=== PATIENT | female | born 1980 | race African-American/Black ===

== ENCOUNTER 2017-12-07 19:41 | Inpatient (IN) | payer OTHER ==
--- NOTE | 2017-12-07 19:51 | PDOC ---
Rapid Medical Evaluation Medical Evaluation: Allergies Allergy/AdvReac Type Severity Reaction Status Date / Time No Known Allergies Allergy Verified 07/31/13 18:38 12/07/17 19:47 I have performed a brief in-person evaluation of this patient. The patient presents with a chief complaint of: "sores all over body, for one month. " pt admits to using intranasal cocaine, denies IVDA. Pt has history of psychiatric illness, REFUSED HIV testing today. Pertinent physical exam findings:scalp, nares, hands, back with multiple lesions , wheeping, scabbed I have ordered the following:cbcd, blood cultures, cmet, wound culture The patient will proceed to the ED for further evaluation. 12/07/17 19:50
[2017-12-07 20:20] LABS: BASO % 0.8 % (0-2.0); EOS % 14.9 % (0-4.5); HEMATOCRIT 40.2 % (32.4-45.2); HEMOGLOBIN 12.9 GM/dL (10.7-15.3); LYMPH % 13.4 % (8-40); MCH 23.6 pg (25.7-33.7); MCHC 32.1 g/dl (32.0-36.0); MEAN CELL VOLUME 73.8 fl (80-96); MEAN PLT VOLUME 7.9 fl (7.5-11.1); MONO % 7.9 % (3.8-10.2); PLATELET COUNT 501 K/MM3 (134-434); RBC 5.45 M/mm3 (3.60-5.2); RDW 14.3 % (11.6-15.6); WHITE BLOOD COUNT 9.3 K/mm3 (4.0-10.0)
[2017-12-07 20:42] LABS: ALBUMIN 3.1 g/dl (3.4-5.0); ALK PHOS 93 U/L (45-117); ANION GAP 6 MMOL/L (8-16); BILIRUBIN,TOTAL 0.4 mg/dL (0.2-1); BLOOD UREA NITROGEN 9 mg/dL (7-18); CALCIUM 8.7 mg/dL (8.5-10.1); CHLORIDE 106 mmol/L (98-107); CO2 24 mmol/L (21-32); CREATININE 0.9 mg/dL (0.55-1.3); GLUCOSE,RANDOM 112 mg/dL (74-106); POTASSIUM 3.9 mmol/L (3.5-5.1); SGOT/AST 20 U/L (15-37); SGPT/ALT 21 U/L (13-61); SODIUM 135 mmol/L (136-145); TOT PROT 7.9 g/dl (6.4-8.2)
[2017-12-08] MEDS ORDERED: PIPERACILLIN/TAZOBACTAM 4.5 GM VIAL IVPB ONE (01:06)
--- NOTE | 2017-12-08 01:06 | PDOC ---
History of Present Illness - General Chief Complaint: Wound Stated Complaint: PCP SENT/WOUND Time Seen by Provider: 12/08/17 00:48 History Source: Patient - History of Present Illness Initial Comments: 12/08/17 01:27 37 year old female with multiple open crater like lesions to scalp, body, back, legs and groin after using cocaine intranasally from a new dealer. denies fever / chills reports that wound start like a blister and spreads. patient has large wound weeping on scalp and back,. Past History - Past Medical History Allergies/Adverse Reactions: Allergies Allergy/AdvReac Type Severity Reaction Status Date / Time No Known Allergies Allergy Verified 12/07/17 19:49 Home Medications: Ambulatory Orders Acamprosate Calcium [Campral -] 666 mg PO TID #120 tablet. 08/27/13 Sertraline HCl [Zoloft -] 150 mg PO DAILY #30 tablet 08/27/13 Quetiapine Fumarate [Seroquel -] 200 mg PO HS 12/12/17 Anemia: No Asthma: No Cancer: No Cardiac Disorders: No CVA: No COPD: No CHF: No Dementia: No Diabetes: No GI Disorders: No Disorders: No HTN: No Hypercholesterolemia: No Kidney Stones: No Liver Disease: No Seizures: No Thyroid Disease: No - Reproductive History PID: No - Suicide/Smoking/Psychosocial Hx Smoking History: Never smoked Have you smoked in the past 12 months: Yes Number of Cigarettes Smoked Daily: 20 Cigars Per Day: 0 'Breaking Loose' booklet given: 07/31/13 Hx Alcohol Use: Yes (reports drinking since 16 years old) Drug/Substance Use Hx: Yes (cocaine) Substance Use Type: Alcohol, Cocaine Hx Substance Use Treatment: Yes (completed 10 months inpatient rehab ,relapsed last month) Review of Systems - Review of Systems Able to Perform ROS?: Yes Is the patient limited Macedonian proficient: No Integumentary: Yes: Lesions (multiple skin lesions), Other *Physical Exam - Vital Signs Last Vital Signs Temp Pulse Resp BP Pulse Ox 98.3 F 100 H 18 129/67 100 12/07/17 19:45 12/07/17 19:45 12/07/17 19:45 12/07/17 19:45 12/07/17 19:45 - Physical Exam General Appearance: Yes: Appropriately Dressed Gastrointestinal/Abdominal: positive: Normal Bowel Sounds, Soft Extremity: positive: Inflammation Integumentary: positive: Other (several lesions to back groin, legs arms. ) Neurologic: positive: Fully Oriented, Alert, Normal Mood/Affect ED Treatment Course - LABORATORY CBC & Chemistry Diagram: 12/16/17 06:23 12/16/17 06:23 - ADDITIONAL ORDERS Additional order review: Laboratory Results 12/07/17 20:05 Sodium 135 L Potassium 3.9 Chloride 106 Carbon Dioxide 24 Anion Gap 6 L BUN 9 Creatinine 0.9 Creat Clearance w eGFR > 60 Random Glucose 112 H Calcium 8.7 Total Bilirubin 0.4 AST 20 ALT 21 Alkaline Phosphatase 93 Total Protein 7.9 Albumin 3.1 L 12/07/17 20:05 RBC 5.45 H MCV 73.8 L MCHC 32.1 RDW 14.3 MPV 7.9 D Neutrophils % 63.0 Lymphocytes % 13.4 D Monocytes % 7.9 Eosinophils % 14.9 H D Basophils % 0.8 Progress Note - Progress Note Progress Note: A: skin lesions P: cbc blood culture cmp IV antibiotics. wound culture *DC/Admit/Observation/Transfer Diagnosis at time of Disposition: Skin lesion, infected, Wound infection - Discharge Dispostion Decision to Admit order: Yes - Referrals - Patient Instructions - Post Discharge Activity
[2017-12-08] MEDS ORDERED: SODIUM CHLORIDE 1,000 ML IV STA (01:07)
[2017-12-08] MEDS ORDERED: VANCOMYCIN 1 GRAM (PRE-DOCKED) 1,000 MG/250 ML BAG IVPB ONE ×2 (01:07→01:25)
[2017-12-08] MEDS ORDERED: PIPERACILLIN/TAZOB 4.5 GM 4.5 GM/100 ML BAG IVPB ONE (01:25)
[2017-12-08] MEDS ORDERED: KETOROLAC TROMETHAMINE 30 MG/1 ML VIAL IVPUSH ONE (01:39)
[2017-12-08 01:42] LABS: PLATELET ESTIMATE INCREASED
[2017-12-08 02:23] LABS: INR 1.26 (0.83-1.09); PROTHROMBIN TIME (PATIENT) 14.9 SEC (9.7-13.0)
[2017-12-08 02:26] LABS: ACTIVATED PTT 29.7 SECONDS (25.2-36.5)
[2017-12-08] MEDS ORDERED: KETOROLAC TROMETHAMINE 30 MG/1 ML VIAL ONE (02:32)
--- NOTE | 2017-12-08 04:21 | HP ---
CHIEF COMPLAINT: multiple bleeding lesions PCP: none HISTORY OF PRESENT ILLNESS: 37F w/ pmhx of cocaine abuse and bipolar depression presents today with complaints of multiple blistering bloody lesions throughout her scalp, chest, breasts, arms, back, and groin. She reports that about 1 month ago, she started buying cocaine from a new drug dealer that she believes "put something in her cocaine." About 1 month ago, she noticed a dime-sized lesion on her scalp that had gradually grown to 10cm. She admits to constantly scratching her scalp due to itchiness. 3 days ago, she started developing multiple blistering coin-sized skin lesions throughout her back, chest, breasts, arms, and groin region. She reports the lesions were very itchy and continued to scratch all over causing her lesions to bleed. Pt denies seeing a doctor for her symptoms as it did not bother her until the lesions started appearing all over her body. Denies headache/dizziness, fever/chills, nausea/vomiting, chest pain, sob, abdominal pain, peripheral edema. Of note, pt used to follow up with a psychiatrist for her bipolar depression as well as a pcp 1 year ago. She states that she had previously been to rehab at [facility] in the past, but started using cocaine again throughout the past year. She states that she exclusively uses cocaine nasally and never intravenously. ER course was notable for: (1) Zosyn, NS, Benadryl given (2) CBC, CMP, blood/wound cultures ordered (3) Recent Travel: Denies PAST MEDICAL HISTORY: cocaine abuse (denies IV use) bipolar depression PAST SURGICAL HISTORY: Denies Social History: Smoking: admits Alcohol: admits Drugs: snorts cocaine for many years Family History: Denies Allergies No Known Allergies Allergy (Verified 12/07/17 19:49) HOME MEDICATIONS: Home Medications Medication Instructions Recorded Sertraline HCl [Zoloft -] 50 mg PO DAILY 07/31/13 Acamprosate Calcium [Campral -] 666 mg PO TID #120 tablet. 08/27/13 Quetiapine Fumarate [Seroquel -] 100 mg PO HS #30 08/27/13 Sertraline HCl [Zoloft -] 150 mg PO DAILY #30 tablet 08/27/13 REVIEW OF SYSTEMS CONSTITUTIONAL: Absent: fever, chills, diaphoresis, generalized weakness, malaise, loss of appetite, weight change HEENT: scalp ulceration Absent: rhinorrhea, nasal congestion, throat pain, throat swelling, difficulty swallowing, mouth swelling, ear pain, eye pain, visual changes CARDIOVASCULAR: Absent: chest pain, syncope, palpitations, irregular heart rate, lightheadedness , peripheral edema RESPIRATORY: Absent: cough, shortness of breath, dyspnea with exertion, orthopnea, wheezing, stridor, hemoptysis GASTROINTESTINAL: Absent: abdominal pain, abdominal distension, nausea, vomiting, diarrhea, constipation, melena, hematochezia GENITOURINARY: Absent: dysuria, frequency, urgency, hesitancy, hematuria, flank pain, genital pain MUSCULOSKELETAL: Absent: myalgia, arthralgia, joint swelling, back pain, neck pain SKIN: multiple bloody ulcerations on back, b/l arms, chest, pubic region a/w itchiness HEMATOLOGIC/IMMUNOLOGIC: Absent: easy bleeding, easy bruising, lymphadenopathy, frequent infections ENDOCRINE: Absent: unexplained weight gain, unexplained weight loss, heat intolerance, cold intolerance NEUROLOGIC: Absent: headache, focal weakness or paresthesias, dizziness, unsteady gait, seizure, mental status changes, bladder or bowel incontinence PSYCHIATRIC: depressio Absent: anxiety, suicidal or homicidal ideation, hallucinations. PHYSICAL EXAMINATION Vital Signs - 24 hr 12/07/17 19:45 Temperature 98.3 F Pulse Rate 100 H Respiratory 18 Rate Blood Pressure 129/67 O2 Sat by Pulse 100 Oximetry (%) GENERAL: AAOx3. Mild distress. Cooperative. HEAD: 10cm in diameter bloody ulceration on scalp with granulation tissue EYES: EOMI. TRE. No conjunctival pallor. EARS, NOSE, THROAT: Deformity of b/l nares w/ bloody drainage and granulation tissue. Poor oral hygiene. erythematous oral pharynx w/ engorged blood vessels. NECK: Normal range of motion, supple without lymphadenopathy, JVD, or masses. LUNGS: Breath sounds equal, clear to auscultation bilaterally. No wheezes, and no crackles. No accessory muscle use. HEART: Regular rate and rhythm, normal S1 and S2. No murmurs noted. ABDOMEN: Soft, NT/ND. +BS in all 4 Q's. MUSCULOSKELETAL: Normal range of motion at all joints. No CVA tenderness. Multiple weeping ulcers. No peripheral edema noted. UPPER EXTREMITIES: 2+ pulses, warm, well-perfused. No cyanosis. No clubbing. No peripheral edema. 5/5 muscle strength LOWER EXTREMITIES: 2+ pulses, warm, well-perfused. No calf tenderness. No peripheral edema. NEUROLOGICAL: Facial symmetry noted. Normal speech. B/l sensation intact. PSYCHIATRIC: Cooperative. Good eye contact. Appropriate mood and affect. SKIN: Multiple diffuse coin-sized desquamative lesions w/ sanguinous discharge on back, chest, breast and b/l arms. Laboratory Results - last 24 hr 12/07/17 12/07/17 12/08/17 20:05 20:05 01:27 WBC 9.3 RBC 5.45 H Hgb 12.9 Hct 40.2 MCV 73.8 L MCH 23.6 L MCHC 32.1 RDW 14.3 Plt Count 501 H D MPV 7.9 D Absolute Neuts (auto) 5.9 Total Counted 100 Neutrophils % 63.0 Neutrophils % (Manual) 56.0 Band Neutrophils % 4.0 Lymphocytes % 13.4 D Lymphocytes % (Manual) 17.0 Monocytes % 7.9 Monocytes % (Manual) 4 Eosinophils % 14.9 H D Eosinophils % (Manual) 19.0 H Basophils % 0.8 Nucleated RBC % 0 Platelet Estimate Increased Platelet Comment No clumping noted PT with INR INR PTT (Actin FS) Sodium 135 L Potassium 3.9 Chloride 106 Carbon Dioxide 24 Anion Gap 6 L BUN 9 Creatinine 0.9 Creat Clearance w eGFR > 60 Random Glucose 112 H Calcium 8.7 Total Bilirubin 0.4 AST 20 ALT 21 Alkaline Phosphatase 93 Total Protein 7.9 Albumin 3.1 L Serum , Qual Negative 12/08/17 02:00 WBC RBC Hgb Hct MCV MCH MCHC RDW Plt Count MPV Absolute Neuts (auto) Total Counted Neutrophils % Neutrophils % (Manual) Band Neutrophils % Lymphocytes % Lymphocytes % (Manual) Monocytes % Monocytes % (Manual) Eosinophils % Eosinophils % (Manual) Basophils % Nucleated RBC % Platelet Estimate Platelet Comment PT with INR 14.90 H INR 1.26 H PTT (Actin FS) 29.7 Sodium Potassium Chloride Carbon Dioxide Anion Gap BUN Creatinine Creat Clearance w eGFR Random Glucose Calcium Total Bilirubin AST ALT Alkaline Phosphatase Total Protein Albumin Serum , Qual ASSESSMENT/PLAN: 37F w/ pmhx of cocaine abuse and bipolar depression presents today with complaints of multiple blistering bloody lesions throughout her scalp, chest, breasts, arms, back, and groin admitted for skin infection. #Staph infection vs necrotizing fasciitis vs. autoimmune dz -Vanc/Zosyn for empiric coverage -isolation precautions -ID consult -TRAUMA SURGEON consult to assess ulcers in mon pubis -ENT consult -If infection ruled out, consider rheum evaluation to r/o autoimmune process causing skin ulcerations. -wound care, apply bacitracin daily -blood/wound cultures ordered, await c/s -Poison control contacted and d/w tox , Dr. Dubon regarding case. Levamisole suggested, but not confirmed by poison control; substance known to lace cocaine and cause skin lesions. -Tylenol 650 mg PO Q6H for pain #Hx of cocaine abuse -drug counseling/cessation -Pt has received rehab in the past; referral for detox #Hx of tobacco use -nicotine patch -drug counseling/cession #DVT Ppx -Lovenox 40 mg SQ QD #FEN -NS -recheck lytes in AM -regular diet dispo -admit to med-surg Visit type - Emergency Visit Emergency Visit: Yes ED Registration Date: 12/08/17 Care time: The patient presented to the Emergency Department on the above date and was hospitalized for further evaluation of their emergent condition. - New Patient This patient is new to me today: Yes Date on this admission: 12/28/17 - Critical Care Critical Care patient: No
[2017-12-08] MEDS ORDERED: ACETAMINOPHEN 325 MG TABLET (FP) PO PRN (05:14)
[2017-12-08] MEDS ORDERED: SODIUM CHLORIDE 1,000 ML IV SCH (05:15)
[2017-12-08] MEDS ORDERED: VANCOMYCIN 1,000 MG in DEXTROSE 5%-WATER - 250 ML IVPB SCH (05:15)
[2017-12-08 06:24] VITALS: BMI 24.3
[2017-12-08] MEDS: SODIUM CHLORIDE 1,000 ML IV SCH ×2 (07:15→16:06)
--- NOTE | 2017-12-08 08:04 | PN ---
Teaching Attending Note Name of Resident: eKnnedi Fung ATTENDING PHYSICIAN STATEMENT I saw and evaluated the patient. I reviewed the resident's note and discussed the case with the resident. I agree with the resident's findings and plan as documented. SUBJECTIVE: OBJECTIVE: HEENT: 8 cm diameter scalp ulceration with granulation, nose with ulceration and deformity of nares with purulent/sanguinous discharge, oral pharynge hyperemic with engorged blood vessels. poor oral hygiene. CVS: RRR, S1, S2 Lungs: CTA Back: multiple ulcerations with purulent discharge : ulcerations on mons pubis Ext: no edema, multiple ulcers CBCD WBC 9.3 K/mm3 (4.0-10.0) 12/07/17 20:05 RBC 5.45 M/mm3 (3.60-5.2) H 12/07/17 20:05 Hgb 12.9 GM/dL (10.7-15.3) 12/07/17 20:05 Hct 40.2 % (32.4-45.2) 12/07/17 20:05 MCV 73.8 fl (80-96) L 12/07/17 20:05 MCHC 32.1 g/dl (32.0-36.0) 12/07/17 20:05 RDW 14.3 % (11.6-15.6) 12/07/17 20:05 Plt Count 501 K/MM3 (134-434) H D 12/07/17 20:05 MPV 7.9 fl (7.5-11.1) D 12/07/17 20:05 CMP Sodium 135 mmol/L (136-145) L 12/07/17 20:05 Potassium 3.9 mmol/L (3.5-5.1) 12/07/17 20:05 Chloride 106 mmol/L (98-107) 12/07/17 20:05 Carbon Dioxide 24 mmol/L (21-32) 12/07/17 20:05 Anion Gap 6 MMOL/L (8-16) L 12/07/17 20:05 BUN 9 mg/dL (7-18) 12/07/17 20:05 Creatinine 0.9 mg/dL (0.55-1.3) 12/07/17 20:05 Creat Clearance w eGFR > 60 (>60) 12/07/17 20:05 Random Glucose 112 mg/dL (74-106) H 12/07/17 20:05 Calcium 8.7 mg/dL (8.5-10.1) 12/07/17 20:05 Total Bilirubin 0.4 mg/dL (0.2-1) 12/07/17 20:05 AST 20 U/L (15-37) 12/07/17 20:05 ALT 21 U/L (13-61) 12/07/17 20:05 Alkaline Phosphatase 93 U/L (45-117) 12/07/17 20:05 Total Protein 7.9 g/dl (6.4-8.2) 12/07/17 20:05 Albumin 3.1 g/dl (3.4-5.0) L 12/07/17 20:05 ASSESSMENT AND PLAN: Staph infection/ Necrotizing fascitis/ Isolation ID consult IVF Vancomycin and zosyn Follow wound and blood cultures. INDUSTRIAL HEALTH AND SAFETY PROFESSOR consult and ENT consult Detox referral
[2017-12-08] MEDS: ACETAMINOPHEN 325 MG TABLET (FP) PO PRN ×2 (09:04→17:19)
[2017-12-08 10:07] LABS: BASO % 0.9 % (0-2.0); EOS % 18.4 % (0-4.5); HEMATOCRIT 36.9 % (32.4-45.2); HEMOGLOBIN 11.4 GM/dL (10.7-15.3); LYMPH % 19.4 % (8-40); MCHC 30.9 g/dl (32.0-36.0); MEAN CELL VOLUME 74.3 fl (80-96); MEAN PLT VOLUME 7.7 fl (7.5-11.1); MONO % 11.3 % (3.8-10.2); PLATELET COUNT 425 K/MM3 (134-434); RBC 4.97 M/mm3 (3.60-5.2); RDW 14.4 % (11.6-15.6); WHITE BLOOD COUNT 7.1 K/mm3 (4.0-10.0)
[2017-12-08 10:35] LABS: ALBUMIN 2.6 g/dl (3.4-5.0); ALK PHOS 76 U/L (45-117); ANION GAP 3 MMOL/L (8-16); BILIRUBIN,TOTAL 0.4 mg/dL (0.2-1); BLOOD UREA NITROGEN 9 mg/dL (7-18); CALCIUM 8.8 mg/dL (8.5-10.1); CHLORIDE 107 mmol/L (98-107); CO2 27 mmol/L (21-32); CREATININE 0.9 mg/dL (0.55-1.3); GLUCOSE,RANDOM 93 mg/dL (74-106); SGOT/AST 15 U/L (15-37); SGPT/ALT 19 U/L (13-61); SODIUM 137 mmol/L (136-145); TOT PROT 6.5 g/dl (6.4-8.2)
[2017-12-08] MEDS: ENOXAPARIN NA (PORCINE) 40 MG/0.4 ML DISP.SYRIN SQ SCH (11:17)
[2017-12-08] MEDS: BACITRACIN 15 GM TUBE TOPICAL OINTMENT TP SCH (11:17)
[2017-12-08] MEDS ORDERED: NICOTINE 14 MG/24 HOURS TOPICAL PATCH TD SCH (13:31)
[2017-12-08] MEDS: NICOTINE 14 MG/24 HOURS TOPICAL PATCH TD SCH (14:05)
--- NOTE | 2017-12-08 14:54 | PN ---
Physical Exam: SUBJECTIVE: Patient seen and examined. She complains of itching all over her body. OBJECTIVE: Vital Signs Period Temp Pulse Resp BP Sys/Laguerre Pulse Ox Last 24 Hr 97.3 F-98.3 F 57-100 18-20 129-141/67-93 100-100 GENERAL: The patient is awake, alert, and fully oriented, in no acute distress. LUNGS: Breath sounds equal, clear to auscultation bilaterally, no wheezes, no crackles, no accessory muscle use. HEART: Regular rate and rhythm, S1, S2 without murmur, rub or gallop. ABDOMEN: Soft, nontender, nondistended, normoactive bowel sounds, no guarding, no rebound, no hepatosplenomegaly, no masses. EXTREMITIES: 2+ pulses, warm, well-perfused, no edema. SKIN: Laboratory Results - last 24 hr 12/07/17 12/07/17 12/08/17 20:05 20:05 01:27 WBC 9.3 RBC 5.45 H Hgb 12.9 Hct 40.2 MCV 73.8 L MCH 23.6 L MCHC 32.1 RDW 14.3 Plt Count 501 H D MPV 7.9 D Absolute Neuts (auto) 5.9 Total Counted 100 Neutrophils % 63.0 Neutrophils % (Manual) 56.0 Band Neutrophils % 4.0 Lymphocytes % 13.4 D Lymphocytes % (Manual) 17.0 Monocytes % 7.9 Monocytes % (Manual) 4 Eosinophils % 14.9 H D Eosinophils % (Manual) 19.0 H Basophils % 0.8 Nucleated RBC % 0 Platelet Estimate Increased Platelet Comment No clumping noted PT with INR INR PTT (Actin FS) Sodium 135 L Potassium 3.9 Chloride 106 Carbon Dioxide 24 Anion Gap 6 L BUN 9 Creatinine 0.9 Creat Clearance w eGFR > 60 Random Glucose 112 H Calcium 8.7 Total Bilirubin 0.4 AST 20 ALT 21 Alkaline Phosphatase 93 Total Protein 7.9 Albumin 3.1 L Serum , Qual Negative 12/08/17 12/08/17 12/08/17 02:00 09:27 09:27 WBC 7.1 RBC 4.97 Hgb 11.4 Hct 36.9 MCV 74.3 L MCH 23.0 L MCHC 30.9 L RDW 14.4 Plt Count 425 MPV 7.7 Absolute Neuts (auto) 3.5 Total Counted Neutrophils % 50.0 D Neutrophils % (Manual) Band Neutrophils % Lymphocytes % 19.4 D Lymphocytes % (Manual) Monocytes % 11.3 H Monocytes % (Manual) Eosinophils % 18.4 H Eosinophils % (Manual) Basophils % 0.9 Nucleated RBC % 0 Platelet Estimate Platelet Comment PT with INR 14.90 H INR 1.26 H PTT (Actin FS) 29.7 Sodium 137 Potassium 4.0 Chloride 107 Carbon Dioxide 27 Anion Gap 3 L BUN 9 Creatinine 0.9 Creat Clearance w eGFR > 60 Random Glucose 93 Calcium 8.8 Total Bilirubin 0.4 AST 15 ALT 19 Alkaline Phosphatase 76 Total Protein 6.5 Albumin 2.6 L Serum , Qual Active Medications Generic Name Dose Route Start Last Admin Trade Name Freq PRN Reason Stop Dose Admin Acetaminophen 650 mg 12/08/17 05:02 12/08/17 09:04 Tylenol - PO 650 mg Q6H PRN Administration PAIN Bacitracin 1 applic 12/08/17 10:00 12/08/17 11:17 Bacitracin - TP 1 applic DAILY JOHN Administration Enoxaparin Sodium 40 mg 12/08/17 10:00 12/08/17 11:17 Lovenox - SQ 40 mg DAILY JOHN Administration Sodium Chloride 1,000 mls @ 100 mls/hr 12/08/17 05:15 12/08/17 07:15 Normal Saline - IV 100 mls/hr ASDIR JOHN Administration Nicotine 14 mg 12/08/17 13:45 12/08/17 14:05 Nicoderm Patch - TD 14 mg DAILY JOHN Administration ASSESSMENT/PLAN: This is a 37 year old woman with a history of cocaine abuse, bipolar disorder, depression who presented to the ED with complaints of itchy skin lesions. 1. Skin lesions - Continue Zosyn, Vancomycin, topical Bacitracin - Benadryl as needed for itching - Awaiting ID, ENT, buffing wheel presser consults - Wound culture pending 2. Cocaine abuse 3. Nicotine dependence - Nicotine patch 4. Bipolar disorder - Continue Zoloft, Seroquel
--- NOTE | 2017-12-08 15:36 | CON.ID ---
Consult Consult Specialty:: infectious diseases Referred by:: Reason for Consultation:: rash,pain - History of Present Illness Chief Complaint: pain,rash History of Present Illness: 37F w/ pmhx of cocaine abuse and bipolar depression presents today with complaints of multiple blistering bloody lesions throughout her scalp, chest, breasts, arms, back, and groin. She reports that about 1 month ago, she started buying cocaine from a new drug dealer that she believes "put something in her cocaine." About 1 month ago, she noticed a dime-sized lesion on her scalp that had gradually grown She admits to constantly scratching her scalp due to itchiness. 3 days ago, she started developing multiple blistering coin-sized skin lesions throughout her back, chest, breasts, arms, and groin region. She reports the lesions were very itchy and continued to scratch all over causing her lesions to bleed. Pt denies seeing a doctor for her symptoms as it did not bother her until the lesions started appearing all over her body. Denies headache/dizziness, fever/ chills, nausea/vomiting, chest pain, sob, abdominal pain, peripheral edema. Of note, pt used to follow up with a psychiatrist for her bipolar depression as well as a pcp 1 year ago. She states that she had previously been to rehab at [facility] in the past, but started using cocaine again throughout the past year. She states that she exclusively uses cocaine nasally and never intravenously. - History Source History Provided By: Patient, Medical Record Limitations to Obtaining History: Poor Historian - Past Medical History ...LMP: 07/15/13 - Alcohol/Substance Use Hx Alcohol Use: Yes (reports drinking since 16 years old) - Smoking History Smoking history: Current every day smoker Have you smoked in the past 12 months: Yes Aproximately how many cigarettes per day: 20 Home Medications - Allergies Allergies/Adverse Reactions: Allergies Allergy/AdvReac Type Severity Reaction Status Date / Time No Known Allergies Allergy Verified 12/07/17 19:49 - Home Medications Home Medications: Ambulatory Orders Acamprosate Calcium [Campral -] 666 mg PO TID #120 tablet. 08/27/13 Quetiapine Fumarate [Seroquel -] 100 mg PO HS #30 08/27/13 Sertraline HCl [Zoloft -] 150 mg PO DAILY #30 tablet 08/27/13 Review of Systems - Review of Systems Constitutional: reports: No Symptoms Eyes: reports: No Symptoms HENT: reports: No Symptoms Neck: reports: No Symptoms Cardiovascular: reports: No Symptoms Respiratory: reports: No Symptoms Gastrointestinal: reports: No Symptoms Genitourinary: reports: No Symptoms Musculoskeletal: reports: No Symptoms Integumentary: reports: Rash (all over the body) Neurological: reports: No Symptoms Endocrine: reports: No Symptoms Hematology/Lymphatic: reports: No Symptoms Psychiatric: reports: No Symptoms Physical Exam Vital Signs: Vital Signs Temperature 97.3 F L 12/08/17 09:39 Pulse Rate 72 12/08/17 09:39 Respiratory Rate 20 12/08/17 09:39 Blood Pressure 141/93 12/08/17 09:39 O2 Sat by Pulse Oximetry (%) 100 12/08/17 06:27 Constitutional: Yes: Well Nourished, Calm, Mild Distress Eyes: Yes: Conjunctiva Clear HENT: Yes: Atraumatic, Normocephalic Neck: Yes: Supple, Trachea Midline Cardiovascular: Yes: Regular Rate and Rhythm Respiratory: Yes: Regular, CTA Bilaterally Gastrointestinal: Yes: Normal Bowel Sounds, Soft Musculoskeletal: Yes: WNL Extremities: Yes: WNL Integumentary: Yes: Rash (all over the body including her nose) Neurological: Yes: Alert, Oriented Psychiatric: Yes: Alert, Oriented Labs: CBC, BMP 12/08/17 09:27 12/08/17 09:27 Assessment/Plan patient with h/o of cocaine abuse coming to the hospital for fulminant rash all over the body which i think it is infected patient with pain all over the body and also rash below her nostrils mainly snorts cocaine according to her does not do iv drugs drug abuse skin infectin rash tobacco abuse plan will start on vanco and zosyn await for all cx reports monitor for her condition ent consult to look for septal perforation if blood cx positive echo wound care rest as per the team derm consult
[2017-12-08] MEDS ORDERED: PIPERACILLIN/TAZOBACTAM 3.375 GM VIAL IVPB ONE (17:16)
[2017-12-08] MEDS ORDERED: DEXTROSE 5%-WATER - 50 ML IVPB ONE (17:16)
[2017-12-08] MEDS: PIPERACILLIN/TAZOB 3.375 GM 3.375 GM in DEXTROSE 5%-WATER - 50 ML IVPB SCH ×2 (17:19→21:03)
[2017-12-08] MEDS: diphenhydrAMINE HCL 25 MG CAPSULE (FP) PO PRN (17:19)
[2017-12-08] MEDS: VANCOMYCIN 1,250 MG in DEXTROSE 5%-WATER - 250 ML IVPB SCH (18:27)
[2017-12-08] MEDS ORDERED: QUEtiapine FUMARATE 25 MG TABLET (FP) ONE (21:04)
[2017-12-08] MEDS: ACAMPROSATE CALCIUM 333 MG TABLET.DR PO SCH (21:07)
[2017-12-08] MEDS: QUEtiapine FUMARATE 50 MG TABLET PO SCH (21:07)
--- NOTE | 2017-12-09 00:26 | CONS ---
DATE OF CONSULTATION: DATE OF DICTATION: 12/08/2017 REASON FOR CONSULTATION: Multiple blister like lesions on skin area. HISTORY OF PRESENT ILLNESS: This patient is a 37-year-old female, 0, para 0, with irregular period. She was admitted with history of cocaine abuse and bipolar depression who admits to snorting cocaine daily, complained of itchy scalp lesion which appears approximately a month ago, which has been increasing in size, and then recently has developed multiple blistering and bleeding ulcers over her body area, mostly on the chest, breast, arm, and groin area. Denies any fever, chills. States sexually active and last intercourse was about 2 months ago. She does not use condoms. PHYSICAL EXAMINATION: GENERAL: Patient was anxious and crying and did not want to be examined. HEENT: Visualization of the scalp area showed a large approximately 8 cm deep ulceration with induration and bleeding. There was also multiple chest lesions and arm lesions. On the mons pubis, there was another large ulcer, and several smaller ones along the labial area. These ulcers weer all ulcerated and deep and indurated. Because of this discomfort, pelvic exam was deferred at this time. Patient states that she had had normal pap smear and then normal recent pelvic exam in [facility]. IMPRESSION: Multiple skin ulcerations and lesions, possibly related to cocaine use. Rule out syphilis and rule out systemic herpes. Also a systemic lupus. I advised her to obtain a dermatology consult for further evaluation. Culture of the lesions are still pending. We will follow up after all the results are available. DRISS RUGGIERO M.D. [id number]
[2017-12-09] MEDS ORDERED: DEXTROSE 5%-WATER - 50 ML IVPB ONE ×3 (01:49→18:00)
[2017-12-09] MEDS ORDERED: PIPERACILLIN/TAZOBACTAM 3.375 GM VIAL IVPB ONE ×3 (01:49→18:00)
[2017-12-09] MEDS: SODIUM CHLORIDE 1,000 ML IV SCH ×3 (01:51→18:18)
[2017-12-09] MEDS: PIPERACILLIN/TAZOB 3.375 GM 3.375 GM in DEXTROSE 5%-WATER - 50 ML IVPB SCH ×3 (01:51→19:16)
[2017-12-09] MEDS: ACETAMINOPHEN 325 MG TABLET (FP) PO PRN (03:11)
[2017-12-09] MEDS ORDERED: KETOROLAC TROMETHAMINE 30 MG/1 ML VIAL IVPUSH ONE (03:15)
[2017-12-09] MEDS ORDERED: PT OWN MED DRAWER 7, Y5N ONE ×2 (05:53→20:55)
[2017-12-09] MEDS: ACAMPROSATE CALCIUM 333 MG TABLET.DR PO SCH ×3 (05:55→21:00)
[2017-12-09] MEDS: KETOROLAC TROMETHAMINE 30 MG/1 ML VIAL IVPUSH PRN ×3 (08:25→21:00)
[2017-12-09 08:30] LABS: BASO % 0.8 % (0-2.0); EOS % 18.3 % (0-4.5); HEMATOCRIT 35.6 % (32.4-45.2); HEMOGLOBIN 11.1 GM/dL (10.7-15.3); LYMPH % 19.7 % (8-40); MCH 23.1 pg (25.7-33.7); MCHC 31.1 g/dl (32.0-36.0); MEAN CELL VOLUME 74.4 fl (80-96); MEAN PLT VOLUME 7.7 fl (7.5-11.1); MONO % 8.5 % (3.8-10.2); NEUT % 52.7 % (42.8-82.8); PLATELET COUNT 397 K/MM3 (134-434); RBC 4.78 M/mm3 (3.60-5.2); RDW 14.5 % (11.6-15.6)
[2017-12-09 08:48] LABS: ANION GAP 6 MMOL/L (8-16); BLOOD UREA NITROGEN 8 mg/dL (7-18); CALCIUM 8.4 mg/dL (8.5-10.1); CHLORIDE 108 mmol/L (98-107); CO2 27 mmol/L (21-32); CREATININE 0.8 mg/dL (0.55-1.3); GLUCOSE,RANDOM 99 mg/dL (74-106); POTASSIUM 4.2 mmol/L (3.5-5.1); SODIUM 140 mmol/L (136-145)
[2017-12-09] MEDS: NICOTINE 14 MG/24 HOURS TOPICAL PATCH TD SCH ×3 (09:35→19:33)
[2017-12-09] MEDS: ENOXAPARIN NA (PORCINE) 40 MG/0.4 ML DISP.SYRIN SQ SCH (09:35)
[2017-12-09] MEDS: BACITRACIN 15 GM TUBE TOPICAL OINTMENT TP SCH (09:35)
[2017-12-09] MEDS: SERTRALINE HCL 50 MG TABLET (FP) PO SCH (09:43)
[2017-12-09] MEDS ORDERED: NICOTINE 14 MG/24 HOURS TOPICAL PATCH TD SCH (10:00)
--- NOTE | 2017-12-09 10:08 | PN ---
Progress Note, Physician History of Present Illness: stable no new issues cx result noted awaiting wound cx patient still with pain and itching - Current Medication List Current Medications: Active Medications Acamprosate (Campral -) 666 mg PO TID [facility] Last Admin: 12/09/17 05:55 Dose: 666 mg Acetaminophen (Tylenol -) 650 mg PO Q6H PRN PRN Reason: PAIN LEVEL 1-5 Bacitracin (Bacitracin -) 1 applic TP DAILY [facility] Last Admin: 12/09/17 09:35 Dose: 1 applic Diphenhydramine HCl (Benadryl -) 25 mg PO Q6H PRN PRN Reason: FOR ITCHING Last Admin: 12/08/17 17:19 Dose: 25 mg Enoxaparin Sodium (Lovenox -) 40 mg SQ DAILY [facility] Last Admin: 12/09/17 09:35 Dose: 40 mg Sodium Chloride (Normal Saline -) 1,000 mls @ 100 mls/hr IV ASDIR JOHN Last Admin: 12/09/17 05:55 Dose: Not Given Vancomycin HCl 1,250 mg/ (Dextrose) 250 mls @ 250 mls/2 hr IVPB Q24H JOHN; Protocol Last Admin: 12/08/17 18:27 Dose: 250 mls/2 hr Piperacillin Sod/Tazobactam (Sod 3.375 gm/ Dextrose) 50 mls @ 100 mls/hr IVPB Q8H-IV JOHN; Protocol Last Admin: 12/09/17 09:33 Dose: 100 mls/hr Ketorolac Tromethamine (Toradol Injection -) 30 mg IVPUSH Q6H PRN PRN Reason: PAIN LEVEL 6-10 Last Admin: 12/09/17 08:25 Dose: 30 mg Nicotine (Nicoderm Patch -) 14 mg TD DAILY [facility] Last Admin: 12/09/17 09:35 Dose: 14 mg Quetiapine Fumarate (Seroquel -) 100 mg PO HS [facility] Last Admin: 12/08/17 21:07 Dose: 100 mg Sertraline HCl (Zoloft -) 150 mg PO DAILY [facility] Last Admin: 12/09/17 09:43 Dose: Not Given - Objective Vital Signs: Vital Signs Temperature 98.4 F 12/09/17 08:55 Pulse Rate 78 12/09/17 08:55 Respiratory Rate 20 12/09/17 08:55 Blood Pressure 120/90 12/09/17 08:55 O2 Sat by Pulse Oximetry (%) 100 12/08/17 21:00 Constitutional: Yes: No Distress, Calm Cardiovascular: Yes: Regular Rate and Rhythm Respiratory: Yes: Regular, CTA Bilaterally Gastrointestinal: Yes: Normal Bowel Sounds, Soft Musculoskeletal: Yes: WNL Extremities: Yes: WNL Integumentary: Yes: Rash (all over the body) Neurological: Yes: Alert, Oriented Psychiatric: Yes: Alert, Oriented Labs: CBC, BMP 12/09/17 07:46 12/09/17 07:46 INR, PTT INR 1.26 (0.83-1.09) H 12/08/17 02:00 Assessment/Plan patient with h/o of cocaine abuse coming to the hospital for fulminant rash all over the body which i think it is infected patient with pain all over the body and also rash below her nostrils mainly snorts cocaine according to her does not do iv drugs drug abuse skin infectin rash tobacco abuse plan ct abx await for wound cx reports monitor for her condition ent consult to look for septal perforation wound care rest as per the team derm consult
[2017-12-09 13:15] LABS: METHADONE, UR NEGATIVE ng/ml (CUTOFF=300); OPIATES, URI NEGATIVE ng/ml (CUTOFF=300); PHENCYCLIDINE,URINE NEGATIVE ng/ml (CUTOFF=25); URINE AMPHETAMINES NEGATIVE ng/ml (CUTOFF=500); URINE BARBITURATES NEGATIVE ng/ml (CUTOFF=200); URINE BENZODIAZEPINES NEGATIVE ng/ml (CUTOFF=200)
[2017-12-09 13:22] LABS: COCAINE, UR POSITIVE ng/ml (CUTOFF=300)
[2017-12-09 13:37] LABS: URINE APPEARANCE CLEAR; URINE BILIRUBIN NEGATIVE (<2.0 mg/dL); URINE COLOR STRAW; URINE GLUCOSE (UA) NEGATIVE (NEGATIVE); URINE KETONE NEGATIVE (NEGATIVE); URINE LEUK ESTERASE NEGATIVE (NEGATIVE); URINE NITRITE NEGATIVE (NEGATIVE); URINE PROTEIN NEGATIVE (NEGATIVE); URINE UROBILINOGEN NEGATIVE mg/dL (0.2-1.0)
--- NOTE | 2017-12-09 16:01 | PN ---
Physical Exam: SUBJECTIVE: Patient seen and examined. She reports itching is better. OBJECTIVE: Vital Signs Period Temp Pulse Resp BP Sys/Laguerre Pulse Ox Last 24 Hr 98 F-98.4 F 66-78 20-20 120-156/86-98 100 GENERAL: The patient is awake, alert, and fully oriented, in no acute distress. LUNGS: Breath sounds equal, clear to auscultation bilaterally, no wheezes, no crackles, no accessory muscle use. HEART: Regular rate and rhythm, S1, S2 without murmur, rub or gallop. ABDOMEN: Soft, nontender, nondistended, normoactive bowel sounds, no guarding, no rebound, no hepatosplenomegaly, no masses. EXTREMITIES: 2+ pulses, warm, well-perfused, no edema. SKIN: Laboratory Results - last 24 hr 12/08/17 12/09/17 12/09/17 10:46 07:46 07:46 WBC 7.0 RBC 4.78 Hgb 11.1 Hct 35.6 MCV 74.4 L MCH 23.1 L MCHC 31.1 L RDW 14.5 Plt Count 397 MPV 7.7 Absolute Neuts (auto) 3.7 Neutrophils % 52.7 Lymphocytes % 19.7 Monocytes % 8.5 Eosinophils % 18.3 H Basophils % 0.8 Nucleated RBC % 0 Sodium 140 Potassium 4.2 Chloride 108 H Carbon Dioxide 27 Anion Gap 6 L BUN 8 Creatinine 0.8 Creat Clearance w eGFR > 60 Random Glucose 99 Calcium 8.4 L Urine Color Straw Urine Appearance Clear Urine pH 6.0 Ur Specific [place] 1.012 Urine Protein Negative Urine Glucose (UA) Negative Urine Ketones Negative Urine Blood Negative Urine Nitrite Negative Urine Bilirubin Negative Urine Urobilinogen Negative Ur Leukocyte Esterase Negative Opiates Screen Methadone Screen Barbiturate Screen Phencyclidine Screen Ur Amphetamines Screen MDMA (Ecstasy) Screen Benzodiazepines Screen Cocaine Screen U Marijuana (THC) Screen RPR Titer 12/09/17 12/09/17 07:46 10:46 WBC RBC Hgb Hct MCV MCH MCHC RDW Plt Count MPV Absolute Neuts (auto) Neutrophils % Lymphocytes % Monocytes % Eosinophils % Basophils % Nucleated RBC % Sodium Potassium Chloride Carbon Dioxide Anion Gap BUN Creatinine Creat Clearance w eGFR Random Glucose Calcium Urine Color Urine Appearance Urine pH Ur Specific [place] Urine Protein Urine Glucose (UA) Urine Ketones Urine Blood Urine Nitrite Urine Bilirubin Urine Urobilinogen Ur Leukocyte Esterase Opiates Screen Negative Methadone Screen Negative Barbiturate Screen Negative Phencyclidine Screen Negative Ur Amphetamines Screen Negative MDMA (Ecstasy) Screen Negative Benzodiazepines Screen Negative Cocaine Screen Positive A* U Marijuana (THC) Screen Negative RPR Titer Nonreactive Active Medications Generic Name Dose Route Start Last Admin Trade Name Freq PRN Reason Stop Dose Admin Acamprosate 666 mg 12/08/17 22:00 12/09/17 15:10 Campral - PO 666 mg TID JOHN Administration Acetaminophen 650 mg 12/09/17 08:13 Tylenol - PO Q6H PRN PAIN LEVEL 1-5 Bacitracin 1 applic 12/08/17 10:00 12/09/17 09:35 Bacitracin - TP 1 applic DAILY JOHN Administration Diphenhydramine HCl 25 mg 12/08/17 16:12 12/08/17 17:19 Benadryl - PO 25 mg Q6H PRN Administration FOR ITCHING Enoxaparin Sodium 40 mg 12/08/17 10:00 12/09/17 09:35 Lovenox - SQ 40 mg DAILY JOHN Administration Sodium Chloride 1,000 mls @ 100 mls/hr 12/08/17 05:15 12/09/17 05:55 Normal Saline - IV Not Given ASDIR JOHN Vancomycin HCl 1,250 mg/ 250 mls @ 250 mls/2 hr 12/08/17 16:30 12/08/17 18:27 Dextrose IVPB 250 mls/2 hr Q24H JOHN Administration Protocol Piperacillin Sod/Tazobactam 50 mls @ 100 mls/hr 12/08/17 16:30 12/09/17 09:33 Sod 3.375 gm/ Dextrose IVPB 100 mls/hr Q8H-IV JOHN Administration Protocol Ketorolac Tromethamine 30 mg 12/09/17 08:11 12/09/17 15:09 Toradol Injection - IVPUSH 30 mg Q6H PRN Administration PAIN LEVEL 6-10 Nicotine 14 mg 12/08/17 13:45 12/09/17 09:35 Nicoderm Patch - TD 14 mg DAILY JOHN Administration Quetiapine Fumarate 100 mg 12/08/17 22:00 12/08/17 21:07 Seroquel - PO 100 mg HS JOHN Administration Sertraline HCl 150 mg 12/09/17 10:00 12/09/17 09:43 Zoloft - PO Not Given DAILY [facility] ASSESSMENT/PLAN: This is a 37 year old woman with a history of cocaine abuse, bipolar disorder, depression who presented to the ED with complaints of itchy skin lesions. 1. Skin lesions - Possibly secondary to cocaine use - poison control suggested cocaine laced with levamisole - Wound culture growing presumptive MRSA - Blood cultures negative so far - Continue Zosyn, Vancomycin, topical Bacitracin - Continue Benadryl as needed for itching - ID, homemaking rehabilitation consultant consults appreciated - Check MARLEEN, ANCA, ESR, C-RP - RPR negative - HSV Ab pending 2. Cocaine abuse 3. Nicotine dependence - Continue Nicotine patch 4. Bipolar disorder - Continue Zoloft, Seroque
[2017-12-09] MEDS: VANCOMYCIN 1,250 MG in DEXTROSE 5%-WATER - 250 ML IVPB SCH (16:40)
[2017-12-09] MEDS ORDERED: QUEtiapine FUMARATE 25 MG TABLET (FP) ONE (20:54)
[2017-12-09] MEDS: QUEtiapine FUMARATE 50 MG TABLET PO SCH (21:00)
[2017-12-10] MEDS ORDERED: PIPERACILLIN/TAZOBACTAM 3.375 GM VIAL IVPB ONE ×3 (01:02→17:02)
[2017-12-10] MEDS ORDERED: DEXTROSE 5%-WATER - 50 ML IVPB ONE ×3 (01:03→17:02)
[2017-12-10] MEDS: PIPERACILLIN/TAZOB 3.375 GM 3.375 GM in DEXTROSE 5%-WATER - 50 ML IVPB SCH ×3 (01:36→17:05)
[2017-12-10] MEDS: KETOROLAC TROMETHAMINE 30 MG/1 ML VIAL IVPUSH PRN (02:47)
[2017-12-10] MEDS ORDERED: PT OWN MED DRAWER 7, Y5N ONE ×4 (06:05→20:52)
[2017-12-10] MEDS: ACAMPROSATE CALCIUM 333 MG TABLET.DR PO SCH ×3 (06:07→21:31)
[2017-12-10] MEDS: SODIUM CHLORIDE 1,000 ML IV SCH ×2 (06:07→21:38)
[2017-12-10] MEDS: ACETAMINOPHEN 325 MG TABLET (FP) PO PRN (06:12)
--- NOTE | 2017-12-10 08:56 | PN ---
Physical Exam: SUBJECTIVE: Patient seen and examined. c/o pain all over from lesions, pruritis and oral pain. able to eat and drink without difficulty. toileting and ambulating without difficulty. denies any new lesions. OBJECTIVE: Vital Signs Period Temp Pulse Resp BP Sys/Laguerre Pulse Ox Last 24 Hr 97.5 F-98.5 F 63-71 20-20 145-153/74-86 100-100 GENERAL: The patient is awake, alert, in no acute distress. HEAD: large superficial irregularily shaped flat ulcer around the anterior fontanelle, several smaller surrounding lesions on scalp. EYES: PERRL, extraocular movements intact, sclera anicteric, conjunctiva clear. No ptosis. ENT: base of nares with ulceration oropharynx with lesions on upper palate, moist mucous membranes. NECK: Trachea midline, full range of motion, supple. LUNGS: Breath sounds equal, clear to auscultation bilaterally, no wheezes, no crackles, no accessory muscle use. HEART: Regular rate and rhythm, S1, S2 without murmur, rub or gallop. ABDOMEN: Soft, nontender, nondistended, normoactive bowel sounds, no guarding EXTREMITIES: 2+ radil and DP pulses, warm, well-perfused, no edema. NEUROLOGICAL: Normal speech, facial symmetry PSYCH: Normal mood, normal affect. SKIN: Warm, multiple ulcers throughout arms, extensively on her back. one under her left breast, none on her abdomen and few on her legs but none on her feet. none on her palms. Laboratory Results - last 24 hr 12/08/17 12/09/17 12/09/17 10:46 07:46 10:46 Urine Color Straw Urine Appearance Clear Urine pH 6.0 Ur Specific [place] 1.012 Urine Protein Negative Urine Glucose (UA) Negative Urine Ketones Negative Urine Blood Negative Urine Nitrite Negative Urine Bilirubin Negative Urine Urobilinogen Negative Ur Leukocyte Esterase Negative Opiates Screen Negative Methadone Screen Negative Barbiturate Screen Negative Phencyclidine Screen Negative Ur Amphetamines Screen Negative MDMA (Ecstasy) Screen Negative Benzodiazepines Screen Negative Cocaine Screen Positive A* U Marijuana (THC) Screen Negative RPR Titer Nonreactive Active Medications Generic Name Dose Route Start Last Admin Trade Name Freq PRN Reason Stop Dose Admin Acamprosate 666 mg 12/08/17 22:00 12/10/17 06:07 Campral - PO 666 mg TID JOHN Administration Acetaminophen 650 mg 12/09/17 08:13 12/10/17 06:12 Tylenol - PO 650 mg Q6H PRN Administration PAIN LEVEL 1-5 Bacitracin 1 applic 12/08/17 10:00 12/09/17 09:35 Bacitracin - TP 1 applic DAILY JOHN Administration Diphenhydramine HCl 25 mg 12/08/17 16:12 12/08/17 17:19 Benadryl - PO 25 mg Q6H PRN Administration FOR ITCHING Docusate Sodium 100 mg 12/10/17 10:00 Colace - PO DAILY JOHN Enoxaparin Sodium 40 mg 12/08/17 10:00 12/09/17 09:35 Lovenox - SQ 40 mg DAILY JOHN Administration Sodium Chloride 1,000 mls @ 100 mls/hr 12/08/17 05:15 12/10/17 06:07 Normal Saline - IV 100 mls/hr ASDIR JOHN Administration Vancomycin HCl 1,250 mg/ 250 mls @ 250 mls/2 hr 12/08/17 16:30 12/09/17 16:40 Dextrose IVPB 250 mls/2 hr Q24H JOHN Administration Protocol Piperacillin Sod/Tazobactam 50 mls @ 100 mls/hr 12/08/17 16:30 12/10/17 01:36 Sod 3.375 gm/ Dextrose IVPB 100 mls/hr Q8H-IV JOHN Administration Protocol Nicotine 14 mg 12/08/17 13:45 12/09/17 19:33 Nicoderm Patch - TD 14 mg DAILY JOHN Administration Oxycodone HCl 5 mg 12/10/17 08:55 Roxicodone - PO Q4H PRN PAIN LEVEL 7 - 10 Quetiapine Fumarate 100 mg 12/10/17 22:00 Seroquel - PO HS JOHN Sertraline HCl 150 mg 12/09/17 10:00 12/09/17 09:43 Zoloft - PO Not Given DAILY JOHN ASSESSMENT/PLAN: 37 year old woman with a polysubstance abuse( cocaine and ETOH), bipolar disorder and depression who presented to the ED with complaints of itchy skin lesions admitted for further evaluation #Multiple skin lesions throughout body, wound cx postive for MRSA, bld cx negative, unclear etiology, multiple differentials including contaminated cocaine with levamisole, vasculitis, dermatitis - Continue Zosyn, Vancomycin, topical Bacitracin, ID consult Dr. Madden - Continue Benadryl as needed for itching - rheumatological w/u to r/o vasculitis, consult dr. kevin - HSV Ab pending, pt had declined HIV testing when offered on 12/07 #Pain control with oxycodone 5mg po q4hr prn, deescalate as tolerated - bowel regimen with colace # Nicotine dependence - Continue Nicotine patch # Bipolar disorder - Continue Zoloft, Seroquel at home doses FEN: NS @100cc/hr lytes all wnl regular diet as tolerated DVT; lovenox 40 sq qdaily Visit type - Emergency Visit Emergency Visit: No - New Patient This patient is new to me today: Yes Date on this admission: 12/10/17 - Critical Care Critical Care patient: No - Discharge Referral Referred to [facility] No
[2017-12-10] MEDS: ENOXAPARIN NA (PORCINE) 40 MG/0.4 ML DISP.SYRIN SQ SCH (10:12)
[2017-12-10] MEDS: oxyCODONE HCL 5 MG TABLET PO PRN ×3 (10:15→21:38)
[2017-12-10] MEDS: diphenhydrAMINE HCL 25 MG CAPSULE (FP) PO PRN (10:15)
[2017-12-10] MEDS: DOCUSATE SODIUM 100 MG CAPSULE (FP) PO SCH (10:16)
[2017-12-10] MEDS: BACITRACIN 15 GM TUBE TOPICAL OINTMENT TP SCH (10:16)
[2017-12-10] MEDS: SERTRALINE HCL 50 MG TABLET (FP) PO SCH (10:16)
[2017-12-10] MEDS: NICOTINE 14 MG/24 HOURS TOPICAL PATCH TD SCH (10:17)
--- NOTE | 2017-12-10 13:57 | PN ---
Progress Note, Physician History of Present Illness: stable no new issues cx result noted wound cx result noted patient still with pain and itching - Current Medication List Current Medications: Active Medications Acamprosate (Campral -) 666 mg PO TID [facility] Last Admin: 12/10/17 06:07 Dose: 666 mg Acetaminophen (Tylenol -) 650 mg PO Q6H PRN PRN Reason: PAIN LEVEL 1-5 Last Admin: 12/10/17 06:12 Dose: 650 mg Bacitracin (Bacitracin -) 1 applic TP DAILY [facility] Last Admin: 12/10/17 10:16 Dose: 1 applic Diphenhydramine HCl (Benadryl -) 25 mg PO Q6H PRN PRN Reason: FOR ITCHING Last Admin: 12/10/17 10:15 Dose: 25 mg Docusate Sodium (Colace -) 100 mg PO DAILY [facility] Last Admin: 12/10/17 10:16 Dose: 100 mg Enoxaparin Sodium (Lovenox -) 40 mg SQ DAILY [facility] Last Admin: 12/10/17 10:12 Dose: 40 mg Sodium Chloride (Normal Saline -) 1,000 mls @ 100 mls/hr IV ASDIR JOHN Last Admin: 12/10/17 06:07 Dose: 100 mls/hr Vancomycin HCl 1,250 mg/ (Dextrose) 250 mls @ 250 mls/2 hr IVPB Q24H JOHN; Protocol Last Admin: 12/09/17 16:40 Dose: 250 mls/2 hr Piperacillin Sod/Tazobactam (Sod 3.375 gm/ Dextrose) 50 mls @ 100 mls/hr IVPB Q8H-IV JOHN; Protocol Last Admin: 12/10/17 10:12 Dose: 100 mls/hr Nicotine (Nicoderm Patch -) 14 mg TD DAILY [facility] Last Admin: 12/10/17 10:17 Dose: Not Given Oxycodone HCl (Roxicodone -) 5 mg PO Q4H PRN PRN Reason: PAIN LEVEL 7 - 10 Last Admin: 12/10/17 10:15 Dose: 5 mg Quetiapine Fumarate (Seroquel -) 100 mg PO HS JOHN Sertraline HCl (Zoloft -) 150 mg PO DAILY [facility] Last Admin: 12/10/17 10:16 Dose: 150 mg - Objective Vital Signs: Vital Signs Temperature 98.1 F 10/06/18 13:44 Pulse Rate 71 12/10/17 13:44 Respiratory Rate 20 12/10/17 13:44 Blood Pressure 161/92 12/10/17 13:44 O2 Sat by Pulse Oximetry (%) 98 12/10/17 09:00 Constitutional: Yes: Calm, Mild Distress Cardiovascular: Yes: Regular Rate and Rhythm Respiratory: Yes: Regular, CTA Bilaterally Gastrointestinal: Yes: Normal Bowel Sounds, Soft Musculoskeletal: Yes: WNL Extremities: Yes: WNL Integumentary: Yes: Rash Neurological: Yes: Alert, Oriented Labs: CBC, BMP 12/09/17 07:46 12/09/17 07:46 INR, PTT INR 1.26 (0.83-1.09) H 12/08/17 02:00 Assessment/Plan rash resolving drug abuse skin infectin rash tobacco abuse plan ct abx will stop zosyn rest as per the team rash improving
--- NOTE | 2017-12-10 14:47 | PN ---
Teaching Attending Note Name of Resident: Gregory Wade ATTENDING PHYSICIAN STATEMENT I saw and evaluated the patient. I reviewed the resident's note and discussed the case with the resident. I agree with the resident's findings and plan as documented. SUBJECTIVE: Patient is complaining of pain which is relieved by oxycodone. OBJECTIVE: Vital Signs Period Temp Pulse Resp BP Sys/Laguerre Pulse Ox Last 24 Hr 97.5 F-98.5 F 63-71 16-20 145-161/74-92 98-100 GENERAL: The patient is awake, alert, and fully oriented, in no acute distress. LUNGS: Breath sounds equal, clear to auscultation bilaterally, no wheezes, no crackles, no accessory muscle use. HEART: Regular rate and rhythm, S1, S2 without murmur, rub or gallop. ABDOMEN: Soft, nontender, nondistended, normoactive bowel sounds, no guarding, no rebound, no hepatosplenomegaly, no masses. EXTREMITIES: 2+ pulses, warm, well-perfused, no edema. SKIN: Laboratory Results - last 24 hr 12/10/17 12/10/17 08:30 08:30 ESR 11 C-Reactive Protein 0.3 Current Medications Generic Name Dose Route Start Last Admin Trade Name Freq PRN Reason Stop Dose Admin Acamprosate 666 mg 12/08/17 22:00 12/10/17 14:14 Campral - PO 666 mg TID JOHN Administration Acetaminophen 650 mg 12/09/17 08:13 12/10/17 06:12 Tylenol - PO 650 mg Q6H PRN Administration PAIN LEVEL 1-5 Bacitracin 1 applic 12/08/17 10:00 12/10/17 10:16 Bacitracin - TP 1 applic DAILY JOHN Administration Diphenhydramine HCl 25 mg 12/08/17 16:12 12/10/17 10:15 Benadryl - PO 25 mg Q6H PRN Administration FOR ITCHING Docusate Sodium 100 mg 12/10/17 10:00 12/10/17 10:16 Colace - PO 100 mg DAILY JOHN Administration Enoxaparin Sodium 40 mg 12/08/17 10:00 12/10/17 10:12 Lovenox - SQ 40 mg DAILY JOHN Administration Sodium Chloride 1,000 mls @ 100 mls/hr 12/08/17 05:15 12/10/17 06:07 Normal Saline - IV 100 mls/hr ASDIR JOHN Administration Vancomycin HCl 1,250 mg/ 250 mls @ 250 mls/2 hr 12/08/17 16:30 12/09/17 16:40 Dextrose IVPB 250 mls/2 hr Q24H JOHN Administration Protocol Piperacillin Sod/Tazobactam 50 mls @ 100 mls/hr 12/08/17 16:30 12/10/17 10:12 Sod 3.375 gm/ Dextrose IVPB 100 mls/hr Q8H-IV JOHN Administration Protocol Nicotine 14 mg 12/08/17 13:45 12/10/17 10:17 Nicoderm Patch - TD Not Given DAILY JOHN Oxycodone HCl 5 mg 12/10/17 08:55 12/10/17 10:15 Roxicodone - PO 5 mg Q4H PRN Administration PAIN LEVEL 7 - 10 Quetiapine Fumarate 100 mg 12/10/17 22:00 Seroquel - PO HS JOHN Sertraline HCl 150 mg 12/09/17 10:00 12/10/17 10:16 Zoloft - PO 150 mg DAILY JOHN Administration ASSESSMENT AND PLAN: This is a 37 year old woman with a history of cocaine abuse, bipolar disorder, depression who presented to the ED with complaints of itchy skin lesions. 1. Skin lesions - Possibly cutaneous vasculitis/necrosis secondary to levamisole - Wound culture growing presumptive MRSA - Blood cultures negative so far - Continue Zosyn, Vancomycin, topical Bacitracin - Continue Benadryl as needed for itching - ID, farmworker general consults appreciated - ENT, dermatology, rheumatology consults - MARLEEN, ANCA pending - ESR, C-RP normal - RPR negative - HSV Ab pending 2. Cocaine abuse - Addiction consult 3. Nicotine dependence - Continue Nicotine patch 4. Bipolar disorder - Continue Zoloft, Seroquel
[2017-12-10] MEDS: VANCOMYCIN 1,250 MG in DEXTROSE 5%-WATER - 250 ML IVPB SCH (17:07)
--- NOTE | 2017-12-10 20:47 | CONSULT ---
Consult Consult Specialty:: Rheumatology - History of Present Illness History of Present Illness: 37 y/o female with history of cocaine abuse and bipolar depression admitted with a 1 month history of widespread blisters and 2 week history of ulcers in oral mucosa. HPI. The patient reports that about 1 month ago, she started buying cocaine from a new drug dealer., At that time she noticed a dime-sized lesion on her scalp that had gradually grown to 10cm. She admits to constantly scratching her scalp due to itchiness. Two weeks ago she devloped oral ulcers. Three days ago , she started developing multiple blistering coin-sized skin lesions throughout her back, chest, breasts, arms, and groin region. As per Dr. Beal evaluation , there was a large ulcer in mons pubis and smaller ulcers along the labial area , he could not do speculum exam. The patient denies joint pain, Sicca syndrome , Raynaud's phenomenon, shortness of breath, cest pain, abdominalpain or fever. Since admission she has had partial improvement. Laboratory work-up revealed creatinine of 0.8 and normal LFT and urinalysis. ESR 11. - History Source History Provided By: Patient, Medical Record - Past Medical History ...LMP: 07/15/13 Psych: Yes: Bipolar - Alcohol/Substance Use Hx Alcohol Use: Yes (reports drinking since 16 years old) - Smoking History Smoking history: Current every day smoker Have you smoked in the past 12 months: Yes Aproximately how many cigarettes per day: 20 Home Medications - Allergies Allergies/Adverse Reactions: Allergies Allergy/AdvReac Type Severity Reaction Status Date / Time No Known Allergies Allergy Verified 12/07/17 19:49 - Home Medications Home Medications: Ambulatory Orders Acamprosate Calcium [Campral -] 666 mg PO TID #120 tablet. 08/27/13 Quetiapine Fumarate [Seroquel -] 100 mg PO HS #30 08/27/13 Sertraline HCl [Zoloft -] 150 mg PO DAILY #30 tablet 08/27/13 Review of Systems - Review of Systems Constitutional: reports: No Symptoms Eyes: reports: No Symptoms HENT: reports: No Symptoms Neck: reports: No Symptoms Cardiovascular: reports: No Symptoms Respiratory: reports: No Symptoms Gastrointestinal: reports: No Symptoms Genitourinary: reports: Lesions Musculoskeletal: reports: No Symptoms Psychiatric: reports: Other Physical Exam Vital Signs: Vital Signs Temperature 98.1 F 12/10/17 18:00 Pulse Rate 74 12/10/17 18:00 Respiratory Rate 20 12/10/17 18:00 Blood Pressure 157/87 12/10/17 18:00 O2 Sat by Pulse Oximetry (%) 98 12/10/17 09:00 Constitutional: Yes: Mild Distress Eyes: Yes: WNL HENT: Yes: WNL Neck: Yes: WNL Cardiovascular: Yes: WNL Respiratory: Yes: WNL Gastrointestinal: Yes: WNL Musculoskeletal: Yes: Other (No active joints) Integumentary: Yes: Other (Multiple ulcers probably related to ruprures blisters in scalp, trunk and extremities.) Labs: CBC, BMP 12/09/17 07:46 12/09/17 07:46 Laboratory Tests 12/07/17 12/08/17 12/09/17 20:05 10:46 07:46 ESR Calcium 8.7 Total Bilirubin 0.4 AST 20 ALT 21 Alkaline Phosphatase 93 Total Protein 7.9 Albumin 3.1 L Urine Color Straw Urine Appearance Clear Urine pH 6.0 Ur Specific [place] 1.012 Urine Protein Negative Urine Glucose (UA) Negative Urine Ketones Negative Urine Blood Negative Urine Nitrite Negative Urine Bilirubin Negative Urine Urobilinogen Negative Ur Leukocyte Esterase Negative RPR Titer Nonreactive 12/10/17 08:30 ESR 11 Calcium Total Bilirubin AST ALT Alkaline Phosphatase Total Protein Albumin Urine Color Urine Appearance Urine pH Ur Specific [place] Urine Protein Urine Glucose (UA) Urine Ketones Urine Blood Urine Nitrite Urine Bilirubin Urine Urobilinogen Ur Leukocyte Esterase RPR Titer Problem List - Problems (1) Blisters of multiple sites Assessment/Plan: Widespread mucocutaneous blisters probably related to cocaine or adultered cocaine use. Rule out Pemphigus vulgaris, rule out Levamisole induced vasculopathy. It is unlikely that she has other connective tissue disease. Plan: Dermatology (Alejandro Trujillo ) consult. ANCA was requested. I suggest to obtain anti-Desmoglein 1 and 3 antibodies (On Tuesday with pathology auth). With Derm consult consider Solumedrol 40 mg BID. Code(s): R23.8 - OTHER SKIN CHANGES
[2017-12-10] MEDS: QUEtiapine FUMARATE 100 MG TABLET (FP) PO SCH (21:31)
[2017-12-11] MEDS ORDERED: PIPERACILLIN/TAZOBACTAM 3.375 GM VIAL IVPB ONE ×2 (01:22→09:13)
[2017-12-11] MEDS ORDERED: DEXTROSE 5%-WATER - 50 ML IVPB ONE ×2 (01:22→09:13)
[2017-12-11] MEDS: PIPERACILLIN/TAZOB 3.375 GM 3.375 GM in DEXTROSE 5%-WATER - 50 ML IVPB SCH ×2 (01:32→09:22)
[2017-12-11] MEDS ORDERED: PT OWN MED DRAWER 7, Y5N ONE ×3 (02:14→21:38)
[2017-12-11] MEDS: oxyCODONE HCL 5 MG TABLET PO PRN ×6 (02:42→23:54)
[2017-12-11] MEDS: ACETAMINOPHEN 325 MG TABLET (FP) PO PRN ×2 (02:42→19:35)
[2017-12-11] MEDS: SODIUM CHLORIDE 1,000 ML IV SCH (06:00)
[2017-12-11] MEDS: ACAMPROSATE CALCIUM 333 MG TABLET.DR PO SCH ×3 (06:00→22:20)
[2017-12-11 07:39] LABS: BASO % 0.7 % (0-2.0); EOS % 17.6 % (0-4.5); HEMATOCRIT 36.2 % (32.4-45.2); HEMOGLOBIN 11.1 GM/dL (10.7-15.3); LYMPH % 16.1 % (8-40); MCH 23.1 pg (25.7-33.7); MCHC 30.7 g/dl (32.0-36.0); MEAN CELL VOLUME 75.1 fl (80-96); MEAN PLT VOLUME 8.4 fl (7.5-11.1); MONO % 5.8 % (3.8-10.2); NEUT % 59.8 % (42.8-82.8); PLATELET COUNT 372 K/MM3 (134-434); RBC 4.82 M/mm3 (3.60-5.2); RDW 14.5 % (11.6-15.6); WHITE BLOOD COUNT 9.2 K/mm3 (4.0-10.0)
[2017-12-11] MEDS: BACITRACIN 15 GM TUBE TOPICAL OINTMENT TP SCH (09:21)
[2017-12-11] MEDS: ENOXAPARIN NA (PORCINE) 40 MG/0.4 ML DISP.SYRIN SQ SCH (09:22)
[2017-12-11] MEDS: NICOTINE 14 MG/24 HOURS TOPICAL PATCH TD SCH (09:22)
[2017-12-11] MEDS: SERTRALINE HCL 50 MG TABLET (FP) PO SCH (09:22)
[2017-12-11] MEDS: DOCUSATE SODIUM 100 MG CAPSULE (FP) PO SCH (09:22)
--- NOTE | 2017-12-11 12:07 | PN ---
Progress Note, Physician History of Present Illness: stable comfortable identification of wound cx with sensitivities - Current Medication List Current Medications: Active Medications Acamprosate (Campral -) 666 mg PO TID [facility] Last Admin: 12/11/17 06:00 Dose: 666 mg Acetaminophen (Tylenol -) 650 mg PO Q6H PRN PRN Reason: PAIN LEVEL 1-5 Last Admin: 12/11/17 02:42 Dose: 650 mg Bacitracin (Bacitracin -) 1 applic TP DAILY [facility] Last Admin: 12/11/17 09:21 Dose: 1 applic Diphenhydramine HCl (Benadryl -) 25 mg PO Q6H PRN PRN Reason: FOR ITCHING Last Admin: 12/10/17 10:15 Dose: 25 mg Docusate Sodium (Colace -) 100 mg PO DAILY [facility] Last Admin: 12/11/17 09:22 Dose: 100 mg Enoxaparin Sodium (Lovenox -) 40 mg SQ DAILY [facility] Last Admin: 12/11/17 09:22 Dose: 40 mg Sodium Chloride (Normal Saline -) 1,000 mls @ 100 mls/hr IV ASDIR [facility] Last Admin: 12/11/17 06:00 Dose: Not Given Vancomycin HCl 1,250 mg/ (Dextrose) 250 mls @ 250 mls/2 hr IVPB Q24H [facility]; Protocol Last Admin: 12/10/17 17:07 Dose: 250 mls/2 hr Nicotine (Nicoderm Patch -) 14 mg TD DAILY [facility] Last Admin: 12/11/17 09:22 Dose: 14 mg Oxycodone HCl (Roxicodone -) 5 mg PO Q4H PRN PRN Reason: PAIN LEVEL 7 - 10 Last Admin: 12/11/17 11:00 Dose: 5 mg Quetiapine Fumarate (Seroquel -) 100 mg PO HS [facility] Last Admin: 12/10/17 21:31 Dose: 100 mg Sertraline HCl (Zoloft -) 150 mg PO DAILY [facility] Last Admin: 12/11/17 09:22 Dose: 150 mg - Objective Vital Signs: Vital Signs Temperature 97.8 F 12/11/17 09:28 Pulse Rate 78 12/11/17 09:28 Respiratory Rate 18 12/11/17 09:28 Blood Pressure 156/79 12/11/17 09:28 O2 Sat by Pulse Oximetry (%) 98 12/10/17 21:00 Constitutional: Yes: No Distress, Calm Cardiovascular: Yes: Regular Rate and Rhythm Respiratory: Yes: Regular, CTA Bilaterally Gastrointestinal: Yes: Normal Bowel Sounds, Soft Musculoskeletal: Yes: WNL Extremities: Yes: WNL Integumentary: Yes: Rash Neurological: Yes: Alert, Oriented Labs: CBC, BMP 12/11/17 06:00 12/09/17 07:46 INR, PTT INR 1.26 (0.83-1.09) H 12/08/17 02:00 Assessment/Plan rash resolving drug abuse skin infectin rash tobacco abuse plan ct abx will check vanco trough rest as per the team rash improving
--- NOTE | 2017-12-11 13:13 | PN ---
Physical Exam: SUBJECTIVE: Patient seen and examined. She has no complaints. OBJECTIVE: Vital Signs Period Temp Pulse Resp BP Sys/Laguerre Pulse Ox Last 24 Hr 97.8 F-98.2 F 64-78 18-20 156-161/79-98 98-98 GENERAL: The patient is awake, alert, and fully oriented, in no acute distress. LUNGS: Breath sounds equal, clear to auscultation bilaterally, no wheezes, no crackles, no accessory muscle use. HEART: Regular rate and rhythm, S1, S2 without murmur, rub or gallop. ABDOMEN: Soft, nontender, nondistended, normoactive bowel sounds, no guarding, no rebound, no hepatosplenomegaly, no masses. EXTREMITIES: 2+ pulses, warm, well-perfused, no edema. SKIN: Laboratory Results - last 24 hr 12/11/17 06:00 WBC 9.2 RBC 4.82 Hgb 11.1 Hct 36.2 MCV 75.1 L MCH 23.1 L MCHC 30.7 L RDW 14.5 Plt Count 372 MPV 8.4 Absolute Neuts (auto) 5.5 Neutrophils % 59.8 Lymphocytes % 16.1 Monocytes % 5.8 Eosinophils % 17.6 H Basophils % 0.7 Nucleated RBC % 0 Active Medications Generic Name Dose Route Start Last Admin Trade Name Freq PRN Reason Stop Dose Admin Acamprosate 666 mg 12/08/17 22:00 12/11/17 13:09 Campral - PO 666 mg TID JOHN Administration Acetaminophen 650 mg 12/09/17 08:13 12/11/17 02:42 Tylenol - PO 650 mg Q6H PRN Administration PAIN LEVEL 1-5 Bacitracin 1 applic 12/08/17 10:00 12/11/17 09:21 Bacitracin - TP 1 applic DAILY JOHN Administration Diphenhydramine HCl 25 mg 12/08/17 16:12 12/10/17 10:15 Benadryl - PO 25 mg Q6H PRN Administration FOR ITCHING Docusate Sodium 100 mg 12/10/17 10:00 12/11/17 09:22 Colace - PO 100 mg DAILY JOHN Administration Enoxaparin Sodium 40 mg 12/08/17 10:00 12/11/17 09:22 Lovenox - SQ 40 mg DAILY JOHN Administration Sodium Chloride 1,000 mls @ 100 mls/hr 12/08/17 05:15 12/11/17 06:00 Normal Saline - IV Not Given ASDIR JOHN Vancomycin HCl 1,250 mg/ 250 mls @ 250 mls/2 hr 12/08/17 16:30 12/10/17 17:07 Dextrose IVPB 250 mls/2 hr Q24H JOHN Administration Protocol Nicotine 14 mg 12/08/17 13:45 12/11/17 09:22 Nicoderm Patch - TD 14 mg DAILY JOHN Administration Oxycodone HCl 5 mg 12/10/17 08:55 12/11/17 11:00 Roxicodone - PO 5 mg Q4H PRN Administration PAIN LEVEL 7 - 10 Quetiapine Fumarate 100 mg 12/10/17 22:00 12/10/17 21:31 Seroquel - PO 100 mg HS JOHN Administration Sertraline HCl 150 mg 12/09/17 10:00 12/11/17 09:22 Zoloft - PO 150 mg DAILY JOHN Administration ASSESSMENT/PLAN: This is a 37 year old woman with a history of cocaine abuse, bipolar disorder, depression who presented to the ED with complaints of itchy skin lesions. 1. 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 Cocaine abuse - Addiction consult 3. Nicotine dependence - Continue Nicotine patch 4. Bipolar disorder - Continue Zoloft, Seroquel
[2017-12-11] MEDS: VANCOMYCIN 1,250 MG in DEXTROSE 5%-WATER - 250 ML IVPB SCH (17:47)
[2017-12-11] MEDS ORDERED: VANCOMYCIN 1,500 MG in DEXTROSE 5%-WATER - 500 ML IVPB ONE (18:30)
[2017-12-11] MEDS: QUEtiapine FUMARATE 100 MG TABLET (FP) PO SCH (22:20)
[2017-12-11] MEDS: diphenhydrAMINE HCL 25 MG CAPSULE (FP) PO PRN (23:54)
[2017-12-12] MEDS: oxyCODONE HCL 5 MG TABLET PO PRN ×4 (04:23→18:32)
[2017-12-12] MEDS: ACETAMINOPHEN 325 MG TABLET (FP) PO PRN ×2 (04:24→17:33)
[2017-12-12] MEDS: SODIUM CHLORIDE 1,000 ML IV SCH ×2 (06:10→17:33)
[2017-12-12] MEDS: ACAMPROSATE CALCIUM 333 MG TABLET.DR PO SCH ×3 (06:11→22:11)
[2017-12-12] MEDS ORDERED: VANCOMYCIN 1 GRAM (PRE-DOCKED) 1,000 MG/250 ML BAG IVPB SCH (08:00)
[2017-12-12] MEDS: NICOTINE 14 MG/24 HOURS TOPICAL PATCH TD SCH (09:07)
[2017-12-12] MEDS: SERTRALINE HCL 50 MG TABLET (FP) PO SCH (09:08)
[2017-12-12 09:09] LABS: BASO % 0.8 % (0-2.0); EOS % 17.3 % (0-4.5); HEMATOCRIT 35.2 % (32.4-45.2); HEMOGLOBIN 11.1 GM/dL (10.7-15.3); LYMPH % 16.4 % (8-40); MCH 23.4 pg (25.7-33.7); MCHC 31.6 g/dl (32.0-36.0); MEAN PLT VOLUME 8.1 fl (7.5-11.1); MONO % 7.1 % (3.8-10.2); NEUT % 58.4 % (42.8-82.8); PLATELET COUNT 382 K/MM3 (134-434); RBC 4.76 M/mm3 (3.60-5.2); RDW 14.2 % (11.6-15.6); WHITE BLOOD COUNT 6.4 K/mm3 (4.0-10.0)
[2017-12-12] MEDS: DOCUSATE SODIUM 100 MG CAPSULE (FP) PO SCH (09:09)
[2017-12-12] MEDS: ENOXAPARIN NA (PORCINE) 40 MG/0.4 ML DISP.SYRIN SQ SCH (09:09)
[2017-12-12] MEDS: BACITRACIN 15 GM TUBE TOPICAL OINTMENT TP SCH (09:09)
[2017-12-12 10:00] LABS: ANION GAP 4 MMOL/L (8-16); BLOOD UREA NITROGEN 3 mg/dL (7-18); CHLORIDE 112 mmol/L (98-107); CO2 25 mmol/L (21-32); CREATININE 0.6 mg/dL (0.55-1.3); GLUCOSE,RANDOM 83 mg/dL (74-106); POTASSIUM 3.9 mmol/L (3.5-5.1); SODIUM 141 mmol/L (136-145)
--- NOTE | 2017-12-12 12:10 | PN ---
Physical Exam: SUBJECTIVE: Patient seen and examined. She has no new complaints. OBJECTIVE: Vital Signs Period Temp Pulse Resp BP Sys/Laguerre Pulse Ox Last 24 Hr 98.1 F-98.7 F 70-78 20-20 120-154/70-97 97 GENERAL: The patient is awake, alert, and fully oriented, in no acute distress. LUNGS: Breath sounds equal, clear to auscultation bilaterally, no wheezes, no crackles, no accessory muscle use. HEART: Regular rate and rhythm, S1, S2 without murmur, rub or gallop. ABDOMEN: Soft, nontender, nondistended, normoactive bowel sounds, no guarding, no rebound, no hepatosplenomegaly, no masses. EXTREMITIES: 2+ pulses, warm, well-perfused, no edema. SKIN: Laboratory Results - last 24 hr 12/11/17 12/12/17 12/12/17 16:00 08:50 08:50 WBC 6.4 RBC 4.76 Hgb 11.1 Hct 35.2 MCV 74.0 L MCH 23.4 L MCHC 31.6 L RDW 14.2 Plt Count 382 MPV 8.1 Absolute Neuts (auto) 3.7 Neutrophils % 58.4 Lymphocytes % 16.4 Monocytes % 7.1 Eosinophils % 17.3 H Basophils % 0.8 Nucleated RBC % 0 Sodium 141 Potassium 3.9 Chloride 112 H Carbon Dioxide 25 Anion Gap 4 L BUN 3 L Creatinine 0.6 Creat Clearance w eGFR > 60 Random Glucose 83 Calcium 8.0 L Vancomycin Pre-Dose 2.3 L Active Medications Generic Name Dose Route Start Last Admin Trade Name Freq PRN Reason Stop Dose Admin Acamprosate 666 mg 12/08/17 22:00 12/12/17 06:11 Campral - PO 666 mg TID JOHN Administration Acetaminophen 650 mg 12/09/17 08:13 12/12/17 04:24 Tylenol - PO 650 mg Q6H PRN Administration PAIN LEVEL 1-5 Bacitracin 1 applic 12/08/17 10:00 12/12/17 09:09 Bacitracin - TP 1 applic DAILY JOHN Administration Diphenhydramine HCl 25 mg 12/08/17 16:12 12/11/17 23:54 Benadryl - PO 25 mg Q6H PRN Administration FOR ITCHING Docusate Sodium 100 mg 12/10/17 10:00 12/12/17 09:09 Colace - PO 100 mg DAILY JOHN Administration Enoxaparin Sodium 40 mg 12/08/17 10:00 12/12/17 09:09 Lovenox - SQ Not Given DAILY [facility] Sodium Chloride 1,000 mls @ 100 mls/hr 12/08/17 05:15 12/12/17 06:10 Normal Saline - IV 100 mls/hr ASDIR JOHN Administration Vancomycin HCl 1,000 mg in 250 mls @ 166.667 mls/hr 12/12/17 08:00 12/12/17 09:09 Vancomycin (Pre-Docked) IVPB 166.667 mls/hr 799,1999 [facility] Administration Protocol Nicotine 14 mg 12/08/17 13:45 12/12/17 09:07 Nicoderm Patch - TD 14 mg DAILY JOHN Administration Oxycodone HCl 5 mg 12/10/17 08:55 12/12/17 09:07 Roxicodone - PO 5 mg Q4H PRN Administration PAIN LEVEL 7 - 10 Quetiapine Fumarate 100 mg 12/10/17 22:00 12/11/17 22:20 Seroquel - PO 100 mg HS JOHN Administration Sertraline HCl 150 mg 12/09/17 10:00 12/12/17 09:08 Zoloft - PO 150 mg DAILY JOHN Administration ASSESSMENT/PLAN: This is a 37 year old woman with a history of cocaine abuse, bipolar disorder, depression who presented to the ED with complaints of itchy skin lesions. 1. 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 Cocaine abuse - Addiction consult 3. Nicotine dependence - Continue Nicotine patch 4. Bipolar disorder - Continue Zoloft, Seroquel
[2017-12-12] MEDS ORDERED: PT OWN MED DRAWER 7, Y5N ONE ×2 (14:07→19:39)
--- NOTE | 2017-12-12 14:48 | PN ---
Progress Note, Physician History of Present Illness: stable no new issues rash improving - Current Medication List Current Medications: Active Medications Acamprosate (Campral -) 666 mg PO TID [facility] Last Admin: 12/12/17 14:11 Dose: 666 mg Acetaminophen (Tylenol -) 650 mg PO Q6H PRN PRN Reason: PAIN LEVEL 1-5 Last Admin: 12/12/17 04:24 Dose: 650 mg Bacitracin (Bacitracin -) 1 applic TP DAILY [facility] Last Admin: 12/12/17 09:09 Dose: 1 applic Diphenhydramine HCl (Benadryl -) 25 mg PO Q6H PRN PRN Reason: FOR ITCHING Last Admin: 12/11/17 23:54 Dose: 25 mg Docusate Sodium (Colace -) 100 mg PO DAILY [facility] Last Admin: 12/12/17 09:09 Dose: 100 mg Enoxaparin Sodium (Lovenox -) 40 mg SQ DAILY [facility] Last Admin: 12/12/17 09:09 Dose: Not Given Sodium Chloride (Normal Saline -) 1,000 mls @ 100 mls/hr IV ASDIR [facility] Last Admin: 12/12/17 06:10 Dose: 100 mls/hr Nicotine (Nicoderm Patch -) 14 mg TD DAILY [facility] Last Admin: 12/12/17 09:07 Dose: 14 mg Oxycodone HCl (Roxicodone -) 5 mg PO Q4H PRN PRN Reason: PAIN LEVEL 7 - 10 Last Admin: 12/12/17 14:11 Dose: 5 mg Quetiapine Fumarate (Seroquel -) 200 mg PO [facility] Sertraline HCl (Zoloft -) 150 mg PO DAILY [facility] Last Admin: 12/12/17 09:08 Dose: 150 mg - Objective Vital Signs: Vital Signs Temperature 98.3 F 12/12/17 09:00 Pulse Rate 72 12/12/17 09:00 Respiratory Rate 20 12/12/17 04:48 Blood Pressure 120/70 12/12/17 09:00 O2 Sat by Pulse Oximetry (%) 97 12/11/17 21:00 Constitutional: Yes: No Distress, Calm Cardiovascular: Yes: Regular Rate and Rhythm Respiratory: Yes: Regular, CTA Bilaterally Musculoskeletal: Yes: WNL Extremities: Yes: WNL Integumentary: Yes: Rash (improving) Neurological: Yes: Alert, Oriented Psychiatric: Yes: Alert, Oriented Labs: CBC, BMP 12/12/17 08:50 12/12/17 08:50 INR, PTT INR 1.26 (0.83-1.09) H 12/08/17 02:00 Assessment/Plan rash resolving drug abuse skin infection mrsa rash tobacco abuse nasla rash plan ct abx wound care rest as per the team drug rehab
[2017-12-12] MEDS ORDERED: VANCOMYCIN 1,250 MG in DEXTROSE 5%-WATER - 250 ML IVPB SCH (15:00)
[2017-12-12] MEDS ORDERED: DOXYCYCLINE HYCLATE 100 MG CAPSULE PO SCH (18:00)
--- NOTE | 2017-12-12 18:58 | CONSULT ---
Consult - text type - Consultation Consultation Note: Dermatology consult requested by Dr Aguirre 37 yr old woman seen for 1 month history of blisters on back arms legs and vaginal area as well as nostrils. Patient reports that the lesions have been improving and she has not developed any more recently. These lesions are consistent with vasculitis .They are also infected with MRSA. Due to her cocaine use the etiology is most likely due to levamisole used as a cutting agent for cocaine. Continue treatment for MRSA and consult wound care for open ulcerations . Keep area clean and apply bactroban cream and consider short course of Prednisone if not contraindicated. Treatment is usually supportive and lesions resolve with cessation of drugs and skin care. ANCa pending ordered by Dr Aguirre. Agree with his assessment and plan
[2017-12-12] MEDS: VANCOMYCIN 1,250 MG in DEXTROSE 5%-WATER - 250 ML IVPB SCH (19:52)
[2017-12-12] MEDS: QUEtiapine FUMARATE 200 MG TABLET PO SCH (22:11)
[2017-12-12] MEDS: diphenhydrAMINE HCL 25 MG CAPSULE (FP) PO PRN (22:26)
[2017-12-13 00:07] LABS: ATYPICAL pANCA <1:20 titer (Neg:<1:20); C-ANCA <1:20 titer (Neg:<1:20); P-ANCA <1:20 titer (Neg:<1:20)
[2017-12-13] MEDS: ACETAMINOPHEN 325 MG TABLET (FP) PO PRN ×2 (00:42→13:40)
[2017-12-13] MEDS: oxyCODONE HCL 5 MG TABLET PO PRN ×3 (00:43→20:33)
[2017-12-13] MEDS: diphenhydrAMINE HCL 25 MG CAPSULE (FP) PO PRN ×3 (04:46→21:06)
--- NOTE | 2017-12-13 05:53 | CONSULT ---
"Consult Detox [facility] Reason for Current Admission/Consult: Cocaine use - History History of Present Illness: Pt admitted for skin lesions- reaction to contaminants in cocaine. Pt states she does not use any other drugs: denies alcohol use, no opioids etc.. Pt has been to rehab at [facility] in the past but relapsed to cocaine use. Pt states she is motivated to stop using after this current admission. Urine tox screen pos only for cocaine ISTOP/E D TECH: Search Terms: sosa nicholson, 1980 Search Date: 12/13/2017 05:52:46 AM The Drug Utilization Report below displays all of the controlled substance prescriptions, if any, that your patient has filled in the last twelve months. The information displayed on this report is compiled from pharmacy submissions to the Department, and accurately reflects the information as submitted by the pharmacies. This report was requested by: Zhao Montgomery | Reference #: [id number] There are no results for the search terms that you entered. - Alcohol/Substance Use Hx Alcohol Use: Yes (reports drinking since 16 years old) - Past Medical History ...LMP: 07/15/13 Psych: Yes: Bipolar Assessment Plan - Diagnosis (1) Cocaine dependence Status: Chronic - Plan Plan: Pt states she has been at [facility] in the past for rehab. She would like to go there again. Pt denies other drug use- denies alcohol use. Pt does not have active health insurance which may be present difficulty getting her to rehab- d/w floor social workers. Please call us- [phone] if we can help you. - Medication Detox Regimen/Protocol: Not Applicable"
[2017-12-13] MEDS: SODIUM CHLORIDE 1,000 ML IV SCH ×2 (05:57→16:13)
[2017-12-13] MEDS: ACAMPROSATE CALCIUM 333 MG TABLET.DR PO SCH ×3 (05:57→21:07)
[2017-12-13] MEDS: VANCOMYCIN 1,250 MG in DEXTROSE 5%-WATER - 250 ML IVPB SCH ×2 (09:06→21:06)
[2017-12-13] MEDS: NICOTINE 14 MG/24 HOURS TOPICAL PATCH TD SCH (09:07)
[2017-12-13] MEDS: BACITRACIN 15 GM TUBE TOPICAL OINTMENT TP SCH (09:08)
[2017-12-13] MEDS: DOCUSATE SODIUM 100 MG CAPSULE (FP) PO SCH (09:08)
[2017-12-13] MEDS: SERTRALINE HCL 50 MG TABLET (FP) PO SCH (09:08)
[2017-12-13] MEDS: ENOXAPARIN NA (PORCINE) 40 MG/0.4 ML DISP.SYRIN SQ SCH (09:12)
[2017-12-13] MEDS ORDERED: oxyCODONE HCL 5 MG TABLET PO PRN (09:56)
[2017-12-13] MEDS ORDERED: oxyCODONE HCL 5 MG TABLET PO ONE (14:27)
--- NOTE | 2017-12-13 14:46 | PN ---
Physical Exam: SUBJECTIVE: Patient seen and examined. She complains of pain at the sites of the skin lesions. OBJECTIVE: Vital Signs Period Temp Pulse Resp BP Sys/Laguerre Pulse Ox Last 24 Hr 98 F-98.8 F 70-79 20-20 145-152/76-80 97 GENERAL: The patient is awake, alert, and fully oriented, in no acute distress. LUNGS: Breath sounds equal, clear to auscultation bilaterally, no wheezes, no crackles, no accessory muscle use. HEART: Regular rate and rhythm, S1, S2 without murmur, rub or gallop. ABDOMEN: Soft, nontender, nondistended, normoactive bowel sounds, no guarding, no rebound, no hepatosplenomegaly, no masses. EXTREMITIES: 2+ pulses, warm, well-perfused, no edema. SKIN: Laboratory Results - last 24 hr 12/10/17 08:30 MARLEEN Screen Negative c-ANCA <1:20 Proteinase 3 (PR3) 6.9 H p-ANCA <1:20 Atypical p-ANCA <1:20 Myeloperoxidase Ab <9.0 Active Medications Generic Name Dose Route Start Last Admin Trade Name Freq PRN Reason Stop Dose Admin Acamprosate 666 mg 12/08/17 22:00 12/13/17 05:57 Campral - PO Not Given TID JOHN Acetaminophen 650 mg 12/13/17 14:28 Tylenol - PO Q6H PRN PAIN LEVEL 1 - 3 Bacitracin 1 applic 12/08/17 10:00 12/13/17 09:08 Bacitracin - TP 1 applic DAILY JOHN Administration Diphenhydramine HCl 25 mg 12/08/17 16:12 12/13/17 04:46 Benadryl - PO 25 mg Q6H PRN Administration FOR ITCHING Docusate Sodium 100 mg 12/10/17 10:00 12/13/17 09:08 Colace - PO 100 mg DAILY JOHN Administration Enoxaparin Sodium 40 mg 12/08/17 10:00 12/13/17 09:12 Lovenox - SQ Not Given DAILY JOHN Sodium Chloride 1,000 mls @ 100 mls/hr 12/08/17 05:15 10 05:57 Normal Saline - IV 100 mls/hr ASDIR JOHN Administration Vancomycin HCl 1,250 mg/ 250 mls @ 166.667 mls/hr 12/12/17 20:00 12/13/17 09: 06 Dextrose IVPB 166.667 mls/hr 0800,1999 JOHN Administration Protocol Nicotine 14 mg 12/08/17 13:45 12/13/17 09:07 Nicoderm Patch - TD 14 mg DAILY JOHN Administration Oxycodone HCl 5 mg 12/13/17 14:27 Roxicodone - PO 12/13/17 14:28 ONCE ONE Oxycodone HCl 10 mg 12/13/17 14:27 Roxicodone - PO Q4H PRN PAIN LEVEL 7 - 10 Oxycodone HCl 5 mg 12/13/17 14:28 Roxicodone - PO Q4H PRN PAIN LEVEL 4 - 6 Quetiapine Fumarate 200 mg 12/12/17 22:00 12/12/17 22:11 Seroquel - PO 200 mg HS JOHN Administration Sertraline HCl 150 mg 12/09/17 10:00 12/13/17 09:08 Zoloft - PO 150 mg DAILY JOHN Administration ASSESSMENT/PLAN: This is a 37 year old woman with a history of cocaine abuse, bipolar disorder, depression who presented to the ED with complaints of itchy skin lesions. 1. 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 Mares) recommends outpatient office follow up - MARLEEN, p-ANCA, c-ANCA, MPO Ab negative. Proteinase 3 is high - ESR, C-RP normal - RPR negative - HSV Ab pending 2. Cocaine abuse - Addiction consult appreciated - Patient prefers to go to [facility] for rehab 3. Nicotine dependence - Continue Nicotine patch 4. Bipolar disorder - Continue Zoloft, Seroquel
--- NOTE | 2017-12-13 15:05 | PN ---
Progress Note, Physician History of Present Illness: continues to improve feels better rash improving still with some open wounds - Current Medication List Current Medications: Active Medications Acamprosate (Campral -) 666 mg PO TID [facility] Last Admin: 12/13/17 05:57 Dose: Not Given Acetaminophen (Tylenol -) 650 mg PO Q6H PRN PRN Reason: PAIN LEVEL 1 - 3 Bacitracin (Bacitracin -) 1 applic TP DAILY [facility] Last Admin: 12/13/17 09:08 Dose: 1 applic Diphenhydramine HCl (Benadryl -) 25 mg PO Q6H PRN PRN Reason: FOR ITCHING Last Admin: 12/13/17 04:46 Dose: 25 mg Docusate Sodium (Colace -) 100 mg PO DAILY [facility] Last Admin: 12/13/17 09:08 Dose: 100 mg Enoxaparin Sodium (Lovenox -) 40 mg SQ DAILY [facility] Last Admin: 12/13/17 09:12 Dose: Not Given Sodium Chloride (Normal Saline -) 1,000 mls @ 100 mls/hr IV ASDIR [facility] Last Admin: 12/13/17 05:57 Dose: 100 mls/hr Vancomycin HCl 1,250 mg/ (Dextrose) 250 mls @ 166.667 mls/hr IVPB 0800,2000 [facility] ; Protocol Last Admin: 12/13/17 09:06 Dose: 166.667 mls/hr Nicotine (Nicoderm Patch -) 14 mg TD DAILY [facility] Last Admin: 12/13/17 09:07 Dose: 14 mg Oxycodone HCl (Roxicodone -) 10 mg PO Q4H PRN PRN Reason: PAIN LEVEL 7 - 10 Oxycodone HCl (Roxicodone -) 5 mg PO Q4H PRN PRN Reason: PAIN LEVEL 4 - 6 Quetiapine Fumarate (Seroquel -) 200 mg PO HS [facility] Last Admin: 12/12/17 22:11 Dose: 200 mg Sertraline HCl (Zoloft -) 150 mg PO DAILY [facility] Last Admin: 12/13/17 09:08 Dose: 150 mg - Objective Vital Signs: Vital Signs Temperature 98 F 12/13/17 09:00 Pulse Rate 78 12/13/17 09:00 Respiratory Rate 20 12/13/17 09:00 Blood Pressure 152/80 12/13/17 09:00 O2 Sat by Pulse Oximetry (%) 97 12/12/17 21:00 Constitutional: Yes: No Distress, Calm Cardiovascular: Yes: Regular Rate and Rhythm Respiratory: Yes: Regular, CTA Bilaterally Gastrointestinal: Yes: Normal Bowel Sounds, Soft Wound/Incision: Yes: Other Neurological: Yes: Alert, Oriented Labs: CBC, BMP 12/12/17 08:50 12/12/17 08:50 INR, PTT INR 1.26 (0.83-1.09) H 12/08/17 02:00 Assessment/Plan rash resolving drug abuse skin infection mrsa rash tobacco abuse nasla rash plan ct abx wound care rest as per the team drug rehab
[2017-12-13] MEDS: predniSONE 20 MG TABLET (UD) PO SCH (18:07)
[2017-12-13] MEDS ORDERED: PT OWN MED DRAWER 7, Y5N ONE (20:58)
[2017-12-13] MEDS: QUEtiapine FUMARATE 200 MG TABLET PO SCH (21:07)
[2017-12-13] MEDS: MUPIROCIN 2% TOPICAL OINTMENT 22 GM TUBE TP SCH (23:21)
[2017-12-14] MEDS: oxyCODONE HCL 5 MG TABLET PO PRN ×6 (00:58→23:44)
[2017-12-14] MEDS: diphenhydrAMINE HCL 25 MG CAPSULE (FP) PO PRN ×4 (04:06→23:44)
[2017-12-14] MEDS: ACETAMINOPHEN 325 MG TABLET (FP) PO PRN ×3 (04:11→16:57)
[2017-12-14] MEDS: SODIUM CHLORIDE 1,000 ML IV SCH ×2 (05:49→16:56)
[2017-12-14] MEDS: ACAMPROSATE CALCIUM 333 MG TABLET.DR PO SCH ×3 (05:50→21:03)
[2017-12-14] MEDS ORDERED: PT OWN MED DRAWER 7, Y5N ONE ×7 (06:45→22:51)
[2017-12-14] MEDS: VANCOMYCIN 1,250 MG in DEXTROSE 5%-WATER - 250 ML IVPB SCH ×2 (08:06→21:02)
[2017-12-14] MEDS: NICOTINE 14 MG/24 HOURS TOPICAL PATCH TD SCH (10:30)
[2017-12-14] MEDS: predniSONE 20 MG TABLET (UD) PO SCH (10:31)
[2017-12-14] MEDS: MUPIROCIN 2% TOPICAL OINTMENT 22 GM TUBE TP SCH ×3 (10:31→23:28)
[2017-12-14] MEDS: SERTRALINE HCL 50 MG TABLET (FP) PO SCH (10:32)
[2017-12-14] MEDS: DOCUSATE SODIUM 100 MG CAPSULE (FP) PO SCH (10:33)
--- NOTE | 2017-12-14 12:30 | PN ---
Progress Note, Physician History of Present Illness: c/o of pain rash drying out still present - Current Medication List Current Medications: Active Medications Acamprosate (Campral -) 666 mg PO TID [facility] Last Admin: 12/14/17 05:50 Dose: Not Given Acetaminophen (Tylenol -) 650 mg PO Q6H PRN PRN Reason: PAIN LEVEL 1 - 3 Last Admin: 12/14/17 10:32 Dose: 650 mg Diphenhydramine HCl (Benadryl -) 25 mg PO Q6H PRN PRN Reason: FOR ITCHING Last Admin: 12/14/17 09:46 Dose: 25 mg Docusate Sodium (Colace -) 100 mg PO DAILY [facility] Last Admin: 12/14/17 10:33 Dose: Not Given Sodium Chloride (Normal Saline -) 1,000 mls @ 100 mls/hr IV ASDIR [facility] Last Admin: 12/14/17 05:49 Dose: 100 mls/hr Vancomycin HCl 1,250 mg/ (Dextrose) 250 mls @ 166.667 mls/hr IVPB 0800,2000 [facility] ; Protocol Last Admin: 12/14/17 08:06 Dose: Not Given Mupirocin (Bactroban 2% Ointment -) 1 applic TP BID [facility] Last Admin: 12/14/17 10:31 Dose: 1 applic Nicotine (Nicoderm Patch -) 14 mg TD DAILY [facility] Last Admin: 12/14/17 10:30 Dose: 14 mg Oxycodone HCl (Roxicodone -) 10 mg PO Q4H PRN PRN Reason: PAIN LEVEL 7 - 10 Last Admin: 12/14/17 08:10 Dose: 10 mg Oxycodone HCl (Roxicodone -) 5 mg PO Q4H PRN PRN Reason: PAIN LEVEL 4 - 6 Last Admin: 12/14/17 04:07 Dose: 5 mg Prednisone (Deltasone -) 60 mg PO DAILY [facility] Last Admin: 12/14/17 10:31 Dose: 60 mg Quetiapine Fumarate (Seroquel -) 200 mg PO [facility] Last Admin: 12/13/17 21:07 Dose: 200 mg Sertraline HCl (Zoloft -) 150 mg PO DAILY [facility] Last Admin: 12/14/17 10:32 Dose: 150 mg - Objective Vital Signs: Vital Signs Temperature 96.7 F L 12/14/17 11:00 Pulse Rate 81 12/14/17 11:00 Respiratory Rate 20 12/14/17 11:00 Blood Pressure 149/98 12/14/17 11:00 O2 Sat by Pulse Oximetry (%) 97 12/14/17 09:00 Constitutional: Yes: Calm, Mild Distress Cardiovascular: Yes: Regular Rate and Rhythm Respiratory: Yes: Regular, CTA Bilaterally Gastrointestinal: Yes: Normal Bowel Sounds, Soft Musculoskeletal: Yes: WNL Extremities: Yes: Other Integumentary: Yes: Rash (all over the body) Neurological: Yes: Alert, Oriented Psychiatric: Yes: Alert Labs: CBC, BMP 12/12/17 08:50 12/12/17 08:50 INR, PTT INR 1.26 (0.83-1.09) H 12/08/17 02:00 Assessment/Plan rash resolving drug abuse skin infectin rash tobacco abuse plan ct abx wound care rest as per the team ent to see the patient
--- NOTE | 2017-12-14 13:14 | PN ---
Physical Exam: SUBJECTIVE: Patient seen and examined at bedside. Very talkative. Voices no complaints. OBJECTIVE: Vital Signs Period Temp Pulse Resp BP Sys/Laguerre Pulse Ox Last 24 Hr 96.7 F-98.9 F 79-81 20-20 136-158/77-98 97-97 GENERAL: The patient is awake, alert, and fully oriented, in no acute distress. LUNGS: Breath sounds equal, clear to auscultation bilaterally, no wheezes, no crackles, no accessory muscle use. HEART: Regular rate and rhythm, S1, S2 without murmur, rub or gallop. ABDOMEN: Soft, nontender, nondistended, normoactive bowel sounds, no guarding, no rebound, no hepatosplenomegaly, no masses. EXTREMITIES: 2+ pulses, warm, well-perfused, no edema. SKIN: Large scalp area with beefy-red granulating tissue; lesions under nares, bilateral arms, chest, back, buttocks, bilateral legs in various stages of healing Active Medications Generic Name Dose Route Start Last Admin Trade Name Freq PRN Reason Stop Dose Admin Acamprosate 666 mg 12/08/17 22:00 12/14/17 05:50 Campral - PO Not Given TID JOHN Acetaminophen 650 mg 12/13/17 14:28 12/14/17 10:32 Tylenol - PO 650 mg Q6H PRN Administration PAIN LEVEL 1 - 3 Diphenhydramine HCl 25 mg 12/08/17 16:12 12/14/17 09:46 Benadryl - PO 25 mg Q6H PRN Administration FOR ITCHING Docusate Sodium 100 mg 12/10/17 10:00 12/14/17 10:33 Colace - PO Not Given DAILY [facility] Sodium Chloride 1,000 mls @ 100 mls/hr 12/08/17 05:15 12/14/17 05:49 Normal Saline - IV 100 mls/hr ASDIR JOHN Administration Vancomycin HCl 1,250 mg/ 250 mls @ 166.667 mls/hr 12/12/17 20:00 12/14/17 08: 06 Dextrose IVPB Not Given 799,1999 [facility] Protocol Mupirocin 1 applic 12/13/17 22:00 12/14/17 10:31 Bactroban 2% Ointment - TP 1 applic BID JOHN Administration Nicotine 14 mg 12/08/17 13:45 10/10/18 10:30 Nicoderm Patch - TD 14 mg DAILY JOHN Administration Oxycodone HCl 10 mg 12/13/17 14:27 12/14/17 08:10 Roxicodone - PO 10 mg Q4H PRN Administration PAIN LEVEL 7 - 10 Oxycodone HCl 5 mg 12/13/17 14:28 12/14/17 04:07 Roxicodone - PO 5 mg Q4H PRN Administration PAIN LEVEL 4 - 6 Prednisone 60 mg 12/13/17 17:45 12/14/17 10:31 Deltasone - PO 60 mg DAILY JOHN Administration Quetiapine Fumarate 200 mg 12/12/17 22:00 12/13/17 21:07 Seroquel - PO 200 mg HS JOHN Administration Sertraline HCl 150 mg 12/09/17 10:00 12/14/17 10:32 Zoloft - PO 150 mg DAILY JOHN Administration ASSESSMENT/PLAN 37 year-old female with a PMH significant for inhaled cocaine abuse, bipolar disorder, and depression who presented to the ED with skin lesions consistent with vasculitis and 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 Mares) recommends outpatient office follow up - MARLEEN, p-ANCA, c-ANCA, MPO Ab negative. Proteinase 3 is high - ESR, C-RP normal - RPR negative - HSV Ab pending 2. Cocaine abuse - Addiction consult appreciated - Patient prefers to go to [facility] for rehab 3. Nicotine dependence - Continue Nicotine patch 4. Bipolar disorder - Continue Zoloft, Seroquel Visit type - Emergency Visit Emergency Visit: Yes ED Registration Date: 12/08/17 Care time: The patient presented to the Emergency Department on the above date and was hospitalized for further evaluation of their emergent condition. - New Patient This patient is new to me today: Yes Date on this admission: 12/14/17 - Critical Care Critical Care patient: No
[2017-12-14] MEDS ORDERED: oxyCODONE HCL 5 MG TABLET PO ONE (20:23)
[2017-12-14] MEDS: QUEtiapine FUMARATE 200 MG TABLET PO SCH (21:03)
[2017-12-15] MEDS: ACETAMINOPHEN 325 MG TABLET (FP) PO PRN ×3 (01:02→21:11)
[2017-12-15] MEDS: oxyCODONE HCL 5 MG TABLET PO PRN ×5 (05:42→22:37)
[2017-12-15] MEDS: ACAMPROSATE CALCIUM 333 MG TABLET.DR PO SCH ×3 (05:43→21:04)
[2017-12-15] MEDS: diphenhydrAMINE HCL 25 MG CAPSULE (FP) PO PRN ×3 (05:45→21:11)
[2017-12-15] MEDS ORDERED: PT OWN MED DRAWER 7, Y5N ONE ×3 (08:32→20:48)
[2017-12-15] MEDS: VANCOMYCIN 1,250 MG in DEXTROSE 5%-WATER - 250 ML IVPB SCH ×2 (08:35→21:03)
[2017-12-15] MEDS: DOCUSATE SODIUM 100 MG CAPSULE (FP) PO SCH (10:42)
[2017-12-15] MEDS: predniSONE 20 MG TABLET (UD) PO SCH (10:42)
[2017-12-15] MEDS: SERTRALINE HCL 50 MG TABLET (FP) PO SCH (10:43)
[2017-12-15] MEDS: MUPIROCIN 2% TOPICAL OINTMENT 22 GM TUBE TP SCH (10:53)
[2017-12-15] MEDS: NICOTINE 14 MG/24 HOURS TOPICAL PATCH TD SCH (12:07)
[2017-12-15] MEDS: BACITRACIN 15 GM TUBE TOPICAL OINTMENT TP SCH ×2 (14:25→21:03)
--- NOTE | 2017-12-15 15:14 | PN ---
Progress Note, Physician History of Present Illness: continues to improve stable rash improving - Current Medication List Current Medications: Active Medications Acamprosate (Campral -) 666 mg PO TID [facility] Last Admin: 12/15/17 14:19 Dose: 666 mg Acetaminophen (Tylenol -) 650 mg PO Q6H PRN PRN Reason: PAIN LEVEL 1 - 3 Last Admin: 12/15/17 12:11 Dose: 650 mg Bacitracin (Bacitracin -) 1 applic TP TID [facility] Last Admin: 12/15/17 14:25 Dose: 1 applic Diphenhydramine HCl (Benadryl -) 25 mg PO Q6H PRN PRN Reason: FOR ITCHING Last Admin: 12/15/17 12:04 Dose: 25 mg Docusate Sodium (Colace -) 100 mg PO DAILY [facility] Last Admin: 12/15/17 10:42 Dose: 100 mg Sodium Chloride (Normal Saline -) 1,000 mls @ 100 mls/hr IV ASDIR [facility] Last Admin: 12/14/17 16:56 Dose: 100 mls/hr Vancomycin HCl 1,250 mg/ (Dextrose) 250 mls @ 166.667 mls/hr IVPB 0800,2000 [facility] ; Protocol Last Admin: 12/15/17 08:35 Dose: 166.667 mls/hr Nicotine (Nicoderm Patch -) 14 mg TD DAILY [facility] Last Admin: 12/15/17 12:07 Dose: 14 mg Oxycodone HCl (Roxicodone -) 10 mg PO Q4H PRN PRN Reason: PAIN LEVEL 7 - 10 Last Admin: 12/15/17 14:24 Dose: 10 mg Oxycodone HCl (Roxicodone -) 5 mg PO Q4H PRN PRN Reason: PAIN LEVEL 4 - 6 Last Admin: 12/14/17 16:56 Dose: 5 mg Prednisone (Deltasone -) 60 mg PO DAILY [facility] Stop: 12/17/17 10:01 Last Admin: 12/15/17 10:42 Dose: 60 mg Quetiapine Fumarate (Seroquel -) 200 mg PO HS [facility] Last Admin: 12/14/17 21:03 Dose: 200 mg Sertraline HCl (Zoloft -) 150 mg PO DAILY [facility] Last Admin: 12/15/17 10:43 Dose: 150 mg - Objective Vital Signs: Vital Signs Temperature 98.6 F 12/15/17 11:00 Pulse Rate 81 12/15/17 11:00 Respiratory Rate 18 12/15/17 11:00 Blood Pressure 155/87 12/15/17 11:00 O2 Sat by Pulse Oximetry (%) 97 12/15/17 09:00 Constitutional: Yes: No Distress, Calm Cardiovascular: Yes: Regular Rate and Rhythm Respiratory: Yes: Regular, CTA Bilaterally Gastrointestinal: Yes: Normal Bowel Sounds, Soft Musculoskeletal: Yes: WNL Extremities: Yes: WNL Wound/Incision: Yes: Other Neurological: Yes: Alert, Oriented Psychiatric: Yes: Alert, Oriented Labs: CBC, BMP 12/12/17 08:50 12/12/17 08:50 INR, PTT INR 1.26 (0.83-1.09) H 12/08/17 02:00 Assessment/Plan rash resolving drug abuse skin infection mrsa rash tobacco abuse plan ct abx wound care rest as per the team will check vanc trough tomorrow
--- NOTE | 2017-12-15 17:44 | PN ---
Physical Exam: SUBJECTIVE: Patient seen and examined. Very upset that mupirocin ointment burned and wants medication stopped. Insisted earlier that her IV be removed. Agrees to have new IV inserted for antibiotics. Agrees to give a urine sample to ensure cocaine has cleared her system. OBJECTIVE: Vital Signs Period Temp Pulse Resp BP Sys/Laguerre Pulse Ox Last 24 Hr 98.4 F-98.6 F 79-83 18-20 147-160/87-95 97-98 GENERAL: The patient is awake, alert, and fully oriented, in no acute distress. LUNGS: Breath sounds equal, clear to auscultation bilaterally, no wheezes, no crackles, no accessory muscle use. HEART: Regular rate and rhythm, S1, S2 without murmur, rub or gallop. ABDOMEN: Soft, nontender, nondistended, normoactive bowel sounds, no guarding, no rebound, no hepatosplenomegaly, no masses. EXTREMITIES: 2+ pulses, warm, well-perfused, no edema. SKIN: Large scalp area with beefy-red granulating tissue; lesions under nares, bilateral arms, chest, back, buttocks, bilateral legs in various stages of healing Active Medications Generic Name Dose Route Start Last Admin Trade Name Freq PRN Reason Stop Dose Admin Acamprosate 666 mg 12/08/17 22:00 12/15/17 14:19 Campral - PO 666 mg TID JOHN Administration Acetaminophen 650 mg 12/13/17 14:28 12/15/17 12:11 Tylenol - PO 650 mg Q6H PRN Administration PAIN LEVEL 1 - 3 Ascorbic Acid 500 mg 12/16/17 10:00 Vitamin C - PO DAILY JOHN Bacitracin 1 applic 12/15/17 14:00 12/15/17 14:25 Bacitracin - TP 1 applic TID JOHN Administration Diphenhydramine HCl 25 mg 12/08/17 16:12 12/15/17 12:04 Benadryl - PO 25 mg Q6H PRN Administration FOR ITCHING Docusate Sodium 100 mg 12/10/17 10:00 12/15/17 10:42 Colace - PO 100 mg DAILY JOHN Administration Sodium Chloride 1,000 mls @ 100 mls/hr 12/08/17 05:15 12/14/17 16:56 Normal Saline - IV 100 mls/hr ASDIR JOHN Administration Vancomycin HCl 1,250 mg/ 250 mls @ 166.667 mls/hr 12/12/17 20:00 12/15/17 08: 35 Dextrose IVPB 166.667 mls/hr JOHN Administration Protocol Multivitamins/Minerals/Vitamin C 1 tab 12/16/17 10:00 Tab-A-Vit - PO DAILY JOHN Nicotine 14 mg 12/08/17 13:45 12/15/17 12:07 Nicoderm Patch - TD 14 mg DAILY JOHN Administration Oxycodone HCl 10 mg 12/13/17 14:27 12/15/17 14:24 Roxicodone - PO 10 mg Q4H PRN Administration PAIN LEVEL 7 - 10 Oxycodone HCl 5 mg 12/13/17 14:28 12/14/17 16:56 Roxicodone - PO 5 mg Q4H PRN Administration PAIN LEVEL 4 - 6 Prednisone 60 mg 12/13/17 17:45 12/15/17 10:42 Deltasone - PO 12/17/17 10:01 60 mg DAILY JOHN Administration Quetiapine Fumarate 200 mg 12/12/17 22:00 12/14/17 21:03 Seroquel - PO 200 mg HS JOHN Administration Sertraline HCl 150 mg 12/09/17 10:00 12/15/17 10:43 Zoloft - PO 150 mg DAILY JOHN Administration ASSESSMENT/PLAN: 37 year-old female with a PMH significant for inhaled cocaine abuse, bipolar disorder, and depression who presented to the ED with skin lesions consistent with vasculitis and infected with MRSA 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 Mares) recommends outpatient office follow up - MARLEEN, p-ANCA, c-ANCA, MPO Ab negative. Proteinase 3 is high - ESR, C-RP normal - RPR negative - HSV Ab pending Cocaine abuse - Addiction consult appreciated - Patient prefers to go to [facility] for rehab Nicotine dependence - Continue Nicotine patch Bipolar disorder - Continue Kirt Kern Visit type - Emergency Visit Emergency Visit: Yes ED Registration Date: 12/08/17 Care time: The patient presented to the Emergency Department on the above date and was hospitalized for further evaluation of their emergent condition. - New Patient This patient is new to me today: No - Critical Care Critical Care patient: No
[2017-12-15 18:05] LABS: COCAINE, UR NEGATIVE ng/ml (CUTOFF=300); METHADONE, UR NEGATIVE ng/ml (CUTOFF=300); PHENCYCLIDINE,URINE NEGATIVE ng/ml (CUTOFF=25); URINE AMPHETAMINES NEGATIVE ng/ml (CUTOFF=500); URINE BARBITURATES NEGATIVE ng/ml (CUTOFF=200); URINE BENZODIAZEPINES NEGATIVE ng/ml (CUTOFF=200)
[2017-12-15 18:37] LABS: OPIATES, URI POSITIVE ng/ml (CUTOFF=300)
[2017-12-15] MEDS: QUEtiapine FUMARATE 200 MG TABLET PO SCH (21:03)
[2017-12-16] MEDS: diphenhydrAMINE HCL 25 MG CAPSULE (FP) PO PRN ×3 (04:46→21:14)
[2017-12-16] MEDS: oxyCODONE HCL 5 MG TABLET PO PRN ×5 (04:46→21:49)
[2017-12-16] MEDS ORDERED: PT OWN MED DRAWER 7, Y5N ONE ×3 (05:48→21:01)
[2017-12-16] MEDS: ACAMPROSATE CALCIUM 333 MG TABLET.DR PO SCH ×3 (06:43→21:13)
[2017-12-16] MEDS: ACETAMINOPHEN 325 MG TABLET (FP) PO PRN ×2 (06:47→21:14)
[2017-12-16 07:05] LABS: BASO % 1.7 % (0-2.0); EOS % 2.7 % (0-4.5); HEMATOCRIT 35.9 % (32.4-45.2); LYMPH % 16.4 % (8-40); MCH 22.8 pg (25.7-33.7); MCHC 30.8 g/dl (32.0-36.0); MEAN CELL VOLUME 74.2 fl (80-96); MEAN PLT VOLUME 7.5 fl (7.5-11.1); MONO % 9.5 % (3.8-10.2); NEUT % 69.7 % (42.8-82.8); PLATELET COUNT 402 K/MM3 (134-434); RBC 4.83 M/mm3 (3.60-5.2); RDW 14.3 % (11.6-15.6); WHITE BLOOD COUNT 10.9 K/mm3 (4.0-10.0)
[2017-12-16 07:47] LABS: ALBUMIN 2.7 g/dl (3.4-5.0); ALK PHOS 69 U/L (45-117); ANION GAP 7 MMOL/L (8-16); BILIRUBIN,TOTAL 0.1 mg/dL (0.2-1); BLOOD UREA NITROGEN 13 mg/dL (7-18); CHLORIDE 105 mmol/L (98-107); CO2 28 mmol/L (21-32); CREATININE 0.8 mg/dL (0.55-1.3); GLUCOSE,RANDOM 142 mg/dL (74-106); MAGNESIUM 1.9 mg/dL (1.8-2.4); POTASSIUM 3.9 mmol/L (3.5-5.1); SGOT/AST 16 U/L (15-37); SGPT/ALT 26 U/L (13-61); SODIUM 140 mmol/L (136-145); TOT PROT 6.9 g/dl (6.4-8.2)
[2017-12-16] MEDS: DOCUSATE SODIUM 100 MG CAPSULE (FP) PO SCH (09:20)
[2017-12-16] MEDS: NICOTINE 14 MG/24 HOURS TOPICAL PATCH TD SCH (09:20)
[2017-12-16] MEDS: VANCOMYCIN 1,250 MG in DEXTROSE 5%-WATER - 250 ML IVPB SCH ×2 (09:20→21:14)
[2017-12-16] MEDS: predniSONE 20 MG TABLET (UD) PO SCH (09:20)
[2017-12-16] MEDS: ASCORBIC ACID 500 MG TABLET (FP) PO SCH (09:20)
[2017-12-16] MEDS: MULTIVITAMINS (DAILY MVI) TABLET (FP) PO SCH (09:20)
[2017-12-16] MEDS: SERTRALINE HCL 50 MG TABLET (FP) PO SCH (09:21)
[2017-12-16] MEDS: BACITRACIN 15 GM TUBE TOPICAL OINTMENT TP SCH ×3 (09:56→21:14)
--- NOTE | 2017-12-16 10:13 | PN ---
Physical Exam: SUBJECTIVE: Patient seen and examined at bedside. Appears comfortable, does not complain of pain. OBJECTIVE: Vital Signs Period Temp Pulse Resp BP Sys/Laguerre Pulse Ox Last 24 Hr 97.8 F-98.7 F 18-81 18-20 146-158/87-92 97 GENERAL: The patient is awake, alert, and fully oriented, in no acute distress. LUNGS: Breath sounds equal, clear to auscultation bilaterally, no wheezes, no crackles, no accessory muscle use. HEART: Regular rate and rhythm, S1, S2 without murmur, rub or gallop. ABDOMEN: Soft, nontender, nondistended, normoactive bowel sounds, no guarding, no rebound, no hepatosplenomegaly, no masses. EXTREMITIES: 2+ pulses, warm, well-perfused, no edema. SKIN: Large scalp area with beefy-red granulating tissue; lesions under nares, bilateral arms, chest, back, buttocks, bilateral legs in various stages of healing, improving; area below nares is much improved Laboratory Results - last 24 hr 12/15/17 12/16/17 12/16/17 15:00 06:23 06:23 WBC 10.9 H RBC 4.83 Hgb 11.0 Hct 35.9 MCV 74.2 L MCH 22.8 L MCHC 30.8 L RDW 14.3 Plt Count 402 MPV 7.5 Absolute Neuts (auto) 7.6 Neutrophils % 69.7 Lymphocytes % 16.4 Monocytes % 9.5 Eosinophils % 2.7 D Basophils % 1.7 Nucleated RBC % 0 Sodium 140 Potassium 3.9 Chloride 105 Carbon Dioxide 28 Anion Gap 7 L BUN 13 Creatinine 0.8 Creat Clearance w eGFR > 60 Random Glucose 142 H Calcium 9.0 Magnesium 1.9 Total Bilirubin 0.1 L AST 16 ALT 26 Alkaline Phosphatase 69 Total Protein 6.9 Albumin 2.7 L Opiates Screen Positive A* Methadone Screen Negative Barbiturate Screen Negative Phencyclidine Screen Negative Ur Amphetamines Screen Negative MDMA (Ecstasy) Screen Negative Benzodiazepines Screen Negative Cocaine Screen Negative U Marijuana (THC) Screen Negative Active Medications Generic Name Dose Route Start Last Admin Trade Name Freq PRN Reason Stop Dose Admin Acamprosate 666 mg 12/08/17 22:00 12/16/17 06:43 Campral - PO Not Given TID JOHN Acetaminophen 650 mg 12/13/17 14:28 12/16/17 06:47 Tylenol - PO 650 mg Q6H PRN Administration PAIN LEVEL 1 - 3 Ascorbic Acid 500 mg 12/16/17 10:00 12/16/17 09:20 Vitamin C - PO 500 mg DAILY JOHN Administration Bacitracin 1 applic 12/15/17 14:00 12/16/17 09:56 Bacitracin - TP 1 applic TID JOHN Administration Diphenhydramine HCl 25 mg 12/08/17 16:12 12/16/17 09:59 Benadryl - PO 25 mg Q6H PRN Administration FOR ITCHING Docusate Sodium 100 mg 12/10/17 10:00 12/16/17 09:20 Colace - PO 100 mg DAILY JOHN Administration Sodium Chloride 1,000 mls @ 100 mls/hr 12/08/17 05:15 12/14/17 16:56 Normal Saline - IV 100 mls/hr ASDIR JOHN Administration Vancomycin HCl 1,250 mg/ 250 mls @ 166.667 mls/hr 12/12/17 20:00 12/16/17 09: 20 Dextrose IVPB 166.667 mls/hr 0800,2000 JOHN Administration Protocol Multivitamins/Minerals/Vitamin C 1 tab 12/16/17 10:00 12/16/17 09:20 Tab-A-Vit - PO 1 tab DAILY JOHN Administration Nicotine 14 mg 12/08/17 13:45 12/16/17 09:20 Nicoderm Patch - TD 14 mg DAILY JOHN Administration Oxycodone HCl 10 mg 12/13/17 14:27 12/16/17 09:57 Roxicodone - PO 10 mg Q4H PRN Administration PAIN LEVEL 7 - 10 Oxycodone HCl 5 mg 12/13/17 14:28 12/14/17 16:56 Roxicodone - PO 5 mg Q4H PRN Administration PAIN LEVEL 4 - 6 Prednisone 60 mg 12/13/17 17:45 12/16/17 09:20 Deltasone - PO 12/17/17 10:01 60 mg DAILY JOHN Administration Quetiapine Fumarate 200 mg 12/12/17 22:00 12/15/17 21:03 Seroquel - PO 200 mg HS JOHN Administration Sertraline HCl 150 mg 12/09/17 10:00 12/16/17 09:21 Zoloft - PO 150 mg DAILY JOHN Administration ASSESSMENT/PLAN: 37 year-old female with a PMH significant for inhaled cocaine abuse, bipolar disorder, and depression who presented to the ED with skin lesions consistent with vasculitis and infected with MRSA 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 Mares) recommends outpatient office follow up - MARLEEN, p-ANCA, c-ANCA, MPO Ab negative. Proteinase 3 is high - ESR, C-RP normal - RPR negative - HSV Ab negative Cocaine abuse - Addiction consult appreciated - Patient prefers to go to [facility] for rehab Nicotine dependence - Continue Nicotine patch Bipolar disorder - Continue Zoloft, Seroquel Visit type - Emergency Visit Emergency Visit: Yes ED Registration Date: 12/08/17 Care time: The patient presented to the Emergency Department on the above date and was hospitalized for further evaluation of their emergent condition. - New Patient This patient is new to me today: No - Critical Care Critical Care patient: No
--- NOTE | 2017-12-16 12:14 | PN ---
Progress Note, Physician History of Present Illness: patient doing well nasal rash has cleared up rest of the rash improving - Current Medication List Current Medications: Active Medications Acamprosate (Campral -) 666 mg PO TID [facility] Last Admin: 12/16/17 06:43 Dose: Not Given Acetaminophen (Tylenol -) 650 mg PO Q6H PRN PRN Reason: PAIN LEVEL 1 - 3 Last Admin: 12/16/17 06:47 Dose: 650 mg Ascorbic Acid (Vitamin C -) 500 mg PO DAILY [facility] Last Admin: 12/16/17 09:20 Dose: 500 mg Bacitracin (Bacitracin -) 1 applic TP TID [facility] Last Admin: 12/16/17 09:56 Dose: 1 applic Diphenhydramine HCl (Benadryl -) 25 mg PO Q6H PRN PRN Reason: FOR ITCHING Last Admin: 12/16/17 09:59 Dose: 25 mg Docusate Sodium (Colace -) 100 mg PO DAILY [facility] Last Admin: 12/16/17 09:20 Dose: 100 mg Sodium Chloride (Normal Saline -) 1,000 mls @ 100 mls/hr IV ASDIR [facility] Last Admin: 12/14/17 16:56 Dose: 100 mls/hr Vancomycin HCl 1,250 mg/ (Dextrose) 250 mls @ 166.667 mls/hr IVPB 0800,2000 [facility] ; Protocol Last Admin: 12/16/17 09:20 Dose: 166.667 mls/hr Multivitamins/Minerals/Vitamin C (Tab-A-Vit -) 1 tab PO DAILY [facility] Last Admin: 12/16/17 09:20 Dose: 1 tab Nicotine (Nicoderm Patch -) 14 mg TD DAILY [facility] Last Admin: 12/16/17 09:20 Dose: 14 mg Oxycodone HCl (Roxicodone -) 10 mg PO Q4H PRN PRN Reason: PAIN LEVEL 7 - 10 Last Admin: 12/16/17 09:57 Dose: 10 mg Oxycodone HCl (Roxicodone -) 5 mg PO Q4H PRN PRN Reason: PAIN LEVEL 4 - 6 Last Admin: 12/14/17 16:56 Dose: 5 mg Prednisone (Deltasone -) 60 mg PO DAILY [facility] Stop: 12/17/17 10:01 Last Admin: 12/16/17 09:20 Dose: 60 mg Quetiapine Fumarate (Seroquel -) 200 mg PO HS [facility] Last Admin: 12/15/17 21:03 Dose: 200 mg Sertraline HCl (Zoloft -) 150 mg PO DAILY [facility] Last Admin: 12/16/17 09:21 Dose: 150 mg - Objective Vital Signs: Vital Signs Temperature 98.7 F 12/16/17 05:57 Pulse Rate 18 L 12/16/17 05:57 Respiratory Rate 20 12/16/17 05:57 Blood Pressure 158/92 12/16/17 05:57 O2 Sat by Pulse Oximetry (%) 97 12/15/17 21:00 Constitutional: Yes: No Distress, Calm HENT: Yes: Atraumatic Cardiovascular: Yes: Regular Rate and Rhythm Respiratory: Yes: Regular, CTA Bilaterally Gastrointestinal: Yes: Normal Bowel Sounds, Soft Musculoskeletal: Yes: WNL Extremities: Yes: WNL Integumentary: Yes: Rash Wound/Incision: Yes: Open to air Neurological: Yes: Alert, Oriented Psychiatric: Yes: Alert, Oriented Labs: CBC, BMP 12/16/17 06:23 12/16/17 06:23 INR, PTT INR 1.26 (0.83-1.09) H 12/08/17 02:00 Assessment/Plan rash resolving drug abuse skin infection mrsa rash tobacco abuse plan ct abx wound care rest as per the team check vanco trough
[2017-12-16] MEDS: SODIUM CHLORIDE 1,000 ML IV SCH (17:25)
[2017-12-16] MEDS: QUEtiapine FUMARATE 200 MG TABLET PO SCH (21:13)
[2017-12-17] MEDS: oxyCODONE HCL 5 MG TABLET PO PRN ×6 (02:08→23:10)
[2017-12-17] MEDS: diphenhydrAMINE HCL 25 MG CAPSULE (FP) PO PRN ×3 (06:04→19:41)
[2017-12-17] MEDS: ACETAMINOPHEN 325 MG TABLET (FP) PO PRN ×3 (06:04→19:40)
[2017-12-17] MEDS: ACAMPROSATE CALCIUM 333 MG TABLET.DR PO SCH ×3 (06:05→21:27)
[2017-12-17] MEDS: BACITRACIN 15 GM TUBE TOPICAL OINTMENT TP SCH ×3 (06:05→21:27)
[2017-12-17] MEDS ORDERED: PT OWN MED DRAWER 7, Y5N ONE ×3 (08:48→21:10)
[2017-12-17] MEDS: VANCOMYCIN 1,250 MG in DEXTROSE 5%-WATER - 250 ML IVPB SCH ×2 (08:57→21:27)
[2017-12-17] MEDS: MULTIVITAMINS (DAILY MVI) TABLET (FP) PO SCH (09:03)
[2017-12-17] MEDS: predniSONE 20 MG TABLET (UD) PO SCH (09:03)
[2017-12-17] MEDS: DOCUSATE SODIUM 100 MG CAPSULE (FP) PO SCH (09:03)
[2017-12-17] MEDS: SERTRALINE HCL 50 MG TABLET (FP) PO SCH (09:03)
[2017-12-17] MEDS: NICOTINE 14 MG/24 HOURS TOPICAL PATCH TD SCH (09:04)
[2017-12-17] MEDS: ASCORBIC ACID 500 MG TABLET (FP) PO SCH (09:04)
[2017-12-17] MEDS: SODIUM CHLORIDE 1,000 ML IV SCH (16:14)
[2017-12-17] MEDS: QUEtiapine FUMARATE 200 MG TABLET PO SCH (21:27)
--- NOTE | 2017-12-17 21:48 | PN ---
Physical Exam: SUBJECTIVE: Patient seen and examined at bedside. Significant other visiting. Smiling. Chatting. OBJECTIVE: Vital Signs Period Temp Pulse Resp BP Sys/Laguerre Pulse Ox Last 24 Hr 98.2 F-98.6 F 80-101 18-20 145-150/80-90 98 ENERAL: The patient is awake, alert, and fully oriented, in no acute distress. LUNGS: Breath sounds equal, clear to auscultation bilaterally, no wheezes, no crackles, no accessory muscle use. HEART: Regular rate and rhythm, S1, S2 without murmur, rub or gallop. ABDOMEN: Soft, nontender, nondistended, normoactive bowel sounds, no guarding, no rebound, no hepatosplenomegaly, no masses. EXTREMITIES: 2+ pulses, warm, well-perfused, no edema. SKIN: Large scalp area with beefy-red granulating tissue, skin islands clearly visible; lesions under nares almost completely resolved; remaining lesions on bilateral arms, chest, back, buttocks, bilateral legs all continue to improve Active Medications Generic Name Dose Route Start Last Admin Trade Name Freq PRN Reason Stop Dose Admin Acamprosate 666 mg 12/08/17 22:00 12/17/17 21:27 Campral - PO Not Given TID JOHN Acetaminophen 650 mg 12/13/17 14:28 12/17/17 19:40 Tylenol - PO 650 mg Q6H PRN Administration PAIN LEVEL 1 - 3 Ascorbic Acid 500 mg 12/16/17 10:00 12/17/17 09:04 Vitamin C - PO 500 mg DAILY JOHN Administration Bacitracin 1 applic 12/15/17 14:00 12/17/17 21:27 Bacitracin - TP 1 applic TID JOHN Administration Diphenhydramine HCl 25 mg 12/08/17 16:12 12/17/17 19:41 Benadryl - PO 25 mg Q6H PRN Administration FOR ITCHING Docusate Sodium 100 mg 12/10/17 10:00 12/17/17 09:03 Colace - PO 100 mg DAILY JOHN Administration Vancomycin HCl 1,250 mg/ 250 mls @ 166.667 mls/hr 12/12/17 20:00 12/17/17 21: 27 Dextrose IVPB 166.667 mls/hr 08,1999 JOHN Administration Protocol Multivitamins/Minerals/Vitamin C 1 tab 12/16/17 10:00 12/17/17 09:03 Tab-A-Vit - PO 1 tab DAILY JOHN Administration Nicotine 14 mg 12/08/17 13:45 12/17/17 09:04 Nicoderm Patch - TD 14 mg DAILY JOHN Administration Oxycodone HCl 10 mg 12/13/17 14:27 12/17/17 18:46 Roxicodone - PO 10 mg Q4H PRN Administration PAIN LEVEL 7 - 10 Oxycodone HCl 5 mg 12/13/17 14:28 12/14/17 16:56 Roxicodone - PO 5 mg Q4H PRN Administration PAIN LEVEL 4 - 6 Quetiapine Fumarate 200 mg 12/12/17 22:00 12/17/17 21:27 Seroquel - PO 200 mg HS JOHN Administration Sertraline HCl 150 mg 12/09/17 10:00 12/17/17 09:03 Zoloft - PO 150 mg DAILY JOHN Administration ASSESSMENT/PLAN 37 year-old female with a PMH significant for inhaled cocaine abuse, bipolar disorder, and depression who presented to the ED with skin lesions consistent with vasculitis and infected with MRSA 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 for rehab Nicotine dependence - Continue Nicotine patch Bipolar disorder - Continue Zoloft, Seroquel Visit type - Emergency Visit Emergency Visit: Yes ED Registration Date: 12/08/17 Care time: The patient presented to the Emergency Department on the above date and was hospitalized for further evaluation of their emergent condition. - New Patient This patient is new to me today: No - Critical Care Critical Care patient: No
[2017-12-18] MEDS: oxyCODONE HCL 5 MG TABLET PO PRN ×5 (05:39→21:28)
[2017-12-18] MEDS: diphenhydrAMINE HCL 25 MG CAPSULE (FP) PO PRN ×3 (05:39→19:56)
[2017-12-18] MEDS: ACAMPROSATE CALCIUM 333 MG TABLET.DR PO SCH ×3 (05:40→21:26)
[2017-12-18] MEDS: BACITRACIN 15 GM TUBE TOPICAL OINTMENT TP SCH ×3 (05:40→21:28)
[2017-12-18] MEDS: DOCUSATE SODIUM 100 MG CAPSULE (FP) PO SCH (09:29)
[2017-12-18] MEDS: VANCOMYCIN 1,250 MG in DEXTROSE 5%-WATER - 250 ML IVPB SCH ×2 (09:29→21:27)
[2017-12-18] MEDS: SERTRALINE HCL 50 MG TABLET (FP) PO SCH (09:30)
[2017-12-18] MEDS: predniSONE 20 MG TABLET (UD) PO SCH (09:30)
[2017-12-18] MEDS: ASCORBIC ACID 500 MG TABLET (FP) PO SCH (09:30)
[2017-12-18] MEDS: NICOTINE 14 MG/24 HOURS TOPICAL PATCH TD SCH (09:30)
[2017-12-18] MEDS: MULTIVITAMINS (DAILY MVI) TABLET (FP) PO SCH (09:30)
[2017-12-18] MEDS: ACETAMINOPHEN 325 MG TABLET (FP) PO PRN ×2 (12:43→19:56)
[2017-12-18] MEDS ORDERED: PT OWN MED DRAWER 7, Y5N ONE ×2 (13:26→21:00)
[2017-12-18] MEDS ORDERED: oxyCODONE HCL 5 MG TABLET PO PRN (13:27)
--- NOTE | 2017-12-18 16:44 | PN ---
Progress Note, Physician History of Present Illness: Pt is alert. States skin lesions with less pain. Remains afebrile. - Current Medication List Current Medications: Active Medications Acamprosate (Campral -) 666 mg PO TID [facility] Last Admin: 12/18/17 14:14 Dose: 666 mg Acetaminophen (Tylenol -) 650 mg PO Q6H PRN PRN Reason: PAIN LEVEL 1 - 3 Last Admin: 12/18/17 12:43 Dose: 650 mg Ascorbic Acid (Vitamin C -) 500 mg PO DAILY [facility] Last Admin: 12/18/17 09:30 Dose: 500 mg Bacitracin (Bacitracin -) 1 applic TP TID [facility] Last Admin: 12/18/17 13:01 Dose: 1 applic Diphenhydramine HCl (Benadryl -) 25 mg PO Q6H PRN PRN Reason: FOR ITCHING Last Admin: 12/18/17 12:43 Dose: 25 mg Docusate Sodium (Colace -) 100 mg PO DAILY [facility] Last Admin: 12/18/17 09:29 Dose: 100 mg Vancomycin HCl 1,250 mg/ (Dextrose) 250 mls @ 166.667 mls/hr IVPB 0800,2000 [facility] ; Protocol Last Admin: 12/18/17 09:29 Dose: 166.667 mls/hr Multivitamins/Minerals/Vitamin C (Tab-A-Vit -) 1 tab PO DAILY [facility] Last Admin: 12/18/17 09:30 Dose: 1 tab Nicotine (Nicoderm Patch -) 14 mg TD DAILY [facility] Last Admin: 12/18/17 09:30 Dose: 14 mg Oxycodone HCl (Roxicodone -) 5 mg PO Q4H PRN PRN Reason: PAIN LEVEL 6-10 Last Admin: 12/18/17 14:08 Dose: 5 mg Prednisone (Deltasone -) 60 mg PO DAILY [facility] Last Admin: 12/18/17 09:30 Dose: 60 mg Quetiapine Fumarate (Seroquel -) 200 mg PO HS [facility] Last Admin: 12/17/17 21:27 Dose: 200 mg Sertraline HCl (Zoloft -) 150 mg PO DAILY [facility] Last Admin: 12/18/17 09:30 Dose: 150 mg - Objective Vital Signs: Vital Signs Temperature 98.2 F 12/18/17 09:00 Pulse Rate 86 12/18/17 09:00 Respiratory Rate 16 12/18/17 09:00 Blood Pressure 145/90 12/18/17 09:00 O2 Sat by Pulse Oximetry (%) 98 12/18/17 09:00 Constitutional: Yes: No Distress, Calm Cardiovascular: Yes: Regular Rate and Rhythm Respiratory: Yes: Regular Gastrointestinal: Yes: Normal Bowel Sounds, Soft Integumentary: Yes: Other (nasal rash resolving generalized skin lesions/denuded , drying but remains extensive) Labs: CBC, BMP 12/16/17 06:23 12/16/17 06:23 INR, PTT INR 1.26 (0.83-1.09) H 12/08/17 02:00 Problem List - Problems (1) Skin lesion, infected Code(s): L08.9 - LOCAL INFECTION OF THE SKIN AND SUBCUTANEOUS TISSUE, UNSP (2) Nicotine dependence Code(s): F17.200 - NICOTINE DEPENDENCE, UNSPECIFIED, UNCOMPLICATED (3) Substance induced mood disorder Code(s): F19.94 - OTH PSYCHOACTIVE SUBSTANCE USE, UNSP W MOOD DISORDER (4) Alcohol dependence Code(s): F10.20 - ALCOHOL DEPENDENCE, UNCOMPLICATED (5) Cocaine dependence Code(s): F14.20 - COCAINE DEPENDENCE, UNCOMPLICATED Assessment/Plan MRSA nasal rash Generalized skin lesions/MRSA in wound cultures -- clinically improving slowly -- continue Vancomycin IV, level noted -- monitor renal function
--- NOTE | 2017-12-18 21:06 | PN ---
Physical Exam: SUBJECTIVE: Patient seen and examined at bedside. Feeling better. OBJECTIVE: Vital Signs Period Temp Pulse Resp BP Sys/Laguerre Pulse Ox Last 24 Hr 97.6 F-98.6 F 80-86 16-20 140-156/70-100 98-98 ENERAL: The patient is awake, alert, and fully oriented, in no acute distress. LUNGS: CTA HEART: RRR, S1, S2 ABDOMEN: Soft, nontender, nondistended EXTREMITIES: 2+ pulses, warm, well-perfused, no edema. SKIN: Large scalp area with beefy-red granulating tissue, skin islands clearly visible; lesions under nares almost completely resolved; remaining lesions on bilateral arms, chest, back, buttocks, bilateral legs all continue to improve Active Medications Generic Name Dose Route Start Last Admin Trade Name Freq PRN Reason Stop Dose Admin Acamprosate 666 mg 12/08/17 22:00 12/18/17 14:14 Campral - PO 666 mg TID JOHN Administration Acetaminophen 650 mg 12/13/17 14:28 12/18/17 19:56 Tylenol - PO 650 mg Q6H PRN Administration PAIN LEVEL 1 - 3 Ascorbic Acid 500 mg 12/16/17 10:00 12/18/17 09:30 Vitamin C - PO 500 mg DAILY JOHN Administration Bacitracin 1 applic 12/15/17 14:00 12/18/17 13:01 Bacitracin - TP 1 applic TID JOHN Administration Diphenhydramine HCl 25 mg 12/08/17 16:12 12/18/17 19:56 Benadryl - PO 25 mg Q6H PRN Administration FOR ITCHING Docusate Sodium 100 mg 12/10/17 10:00 12/18/17 09:29 Colace - PO 100 mg DAILY JOHN Administration Vancomycin HCl 1,250 mg/ 250 mls @ 166.667 mls/hr 12/12/17 20:00 12/18/17 09: 29 Dextrose IVPB 166.667 mls/hr JOHN Administration Protocol Multivitamins/Minerals/Vitamin C 1 tab 12/16/17 10:00 12/18/17 09:30 Tab-A-Vit - PO 1 tab DAILY JOHN Administration Nicotine 14 mg 12/08/17 13:45 12/18/17 09:30 Nicoderm Patch - TD 14 mg DAILY JOHN Administration Oxycodone HCl 5 mg 12/18/17 13:28 12/18/17 17:32 Roxicodone - PO 5 mg Q4H PRN Administration PAIN LEVEL 6-10 Prednisone 60 mg 12/18/17 10:00 12/18/17 09:30 Deltasone - PO 60 mg DAILY JOHN Administration Quetiapine Fumarate 200 mg 12/12/17 22:00 12/17/17 21:27 Seroquel - PO 200 mg HS JOHN Administration Sertraline HCl 150 mg 12/09/17 10:00 12/18/17 09:30 Zoloft - PO 150 mg DAILY JOHN Administration ASSESSMENT/PLAN 37 year-old female with a PMH significant for inhaled cocaine abuse, bipolar disorder, and depression who presented to the ED with skin lesions consistent with vasculitis and infected with MRSA 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 - Lesions are in various stages of healing, marked, rapid improvement since starting prednisone - will continue prednisone 60mg daily (today is day #6) - continue Vanc (day #11) - topical bacitracin - lowered oxycodone to 5mg PRN, discussed with patient Cocaine abuse - Addiction consult appreciated - Patient prefers to go to [facility] for rehab Nicotine dependence - Continue Nicotine patch Bipolar disorder - Continue Zoloft, Seroquel Visit type - Emergency Visit Emergency Visit: Yes ED Registration Date: 12/08/17 Care time: The patient presented to the Emergency Department on the above date and was hospitalized for further evaluation of their emergent condition. - New Patient This patient is new to me today: No - Critical Care Critical Care patient: No
[2017-12-18] MEDS: QUEtiapine FUMARATE 200 MG TABLET PO SCH (21:27)
[2017-12-19] MEDS: diphenhydrAMINE HCL 25 MG CAPSULE (FP) PO PRN ×4 (01:43→21:15)
[2017-12-19] MEDS: oxyCODONE HCL 5 MG TABLET PO PRN ×5 (01:45→22:09)
[2017-12-19] MEDS: ACETAMINOPHEN 325 MG TABLET (FP) PO PRN ×4 (01:47→21:15)
[2017-12-19] MEDS: ACAMPROSATE CALCIUM 333 MG TABLET.DR PO SCH ×3 (05:59→21:15)
[2017-12-19] MEDS: BACITRACIN 15 GM TUBE TOPICAL OINTMENT TP SCH ×3 (06:45→22:09)
[2017-12-19] MEDS ORDERED: PT OWN MED DRAWER 7, Y5N ONE ×2 (08:10→21:06)
[2017-12-19] MEDS: VANCOMYCIN 1,250 MG in DEXTROSE 5%-WATER - 250 ML IVPB SCH ×2 (08:52→21:16)
[2017-12-19] MEDS: DOCUSATE SODIUM 100 MG CAPSULE (FP) PO SCH (09:19)
[2017-12-19] MEDS: predniSONE 20 MG TABLET (UD) PO SCH (09:20)
[2017-12-19] MEDS: NICOTINE 14 MG/24 HOURS TOPICAL PATCH TD SCH (09:20)
[2017-12-19] MEDS: MULTIVITAMINS (DAILY MVI) TABLET (FP) PO SCH (09:21)
[2017-12-19] MEDS: ASCORBIC ACID 500 MG TABLET (FP) PO SCH (09:21)
[2017-12-19] MEDS: SERTRALINE HCL 50 MG TABLET (FP) PO SCH (09:22)
--- NOTE | 2017-12-19 11:32 | PN ---
Physical Exam: SUBJECTIVE: Patient seen and examined OBJECTIVE: Vital Signs Period Temp Pulse Resp BP Sys/Laguerre Pulse Ox Last 24 Hr 97.6 F-98.4 F 80-98 16-20 126-145/66-79 98 GENERAL: The patient is awake, alert, and fully oriented, in no acute distress. LUNGS: CTA HEART: RRR, S1, S2 ABDOMEN: Soft, nontender, nondistended EXTREMITIES: 2+ pulses, warm, well-perfused, no edema. SKIN: Large scalp area with beefy-red granulating tissue, skin islands clearly visible; lesions under nares almost completely resolved; remaining lesions on bilateral arms, chest, back, buttocks, bilateral legs all continue to improve Active Medications Generic Name Dose Route Start Last Admin Trade Name Freq PRN Reason Stop Dose Admin Acamprosate 666 mg 12/08/17 22:00 12/19/17 05:59 Campral - PO Not Given TID JOHN Acetaminophen 650 mg 12/13/17 14:28 12/19/17 09:23 Tylenol - PO 650 mg Q6H PRN Administration PAIN LEVEL 1 - 3 Ascorbic Acid 500 mg 12/16/17 10:00 12/19/17 09:21 Vitamin C - PO 500 mg DAILY JOHN Administration Bacitracin 1 applic 12/15/17 14:00 12/19/17 06:45 Bacitracin - TP 1 applic TID JOHN Administration Diphenhydramine HCl 25 mg 12/08/17 16:12 12/19/17 09:19 Benadryl - PO 25 mg Q6H PRN Administration FOR ITCHING Docusate Sodium 100 mg 12/10/17 10:00 12/19/17 09:19 Colace - PO 100 mg DAILY JOHN Administration Vancomycin HCl 1,250 mg/ 250 mls @ 166.667 mls/hr 12/12/17 20:00 12/19/17 08: 52 Dextrose IVPB 166.667 mls/hr [facility] Administration Protocol Multivitamins/Minerals/Vitamin C 1 tab 12/16/17 10:00 12/19/17 09:21 Tab-A-Vit - PO 1 tab DAILY JOHN Administration Nicotine 14 mg 12/08/17 13:45 12/19/17 09:20 Nicoderm Patch - TD 14 mg DAILY JOHN Administration Oxycodone HCl 5 mg 12/18/17 13:28 12/19/17 06:59 Roxicodone - PO 5 mg Q4H PRN Administration PAIN LEVEL 6-10 Prednisone 60 mg 12/18/17 10:00 12/19/17 09:20 Deltasone - PO 60 mg DAILY JOHN Administration Quetiapine Fumarate 200 mg 12/12/17 22:00 12/18/17 21:27 Seroquel - PO 200 mg HS JOHN Administration Sertraline HCl 150 mg 12/09/17 10:00 12/19/17 09:22 Zoloft - PO 150 mg DAILY JOHN Administration ASSESSMENT/PLAN: 37 year-old female with a PMH significant for inhaled cocaine abuse, bipolar disorder, and depression who presented to the ED with skin lesions consistent with vasculitis and infected with MRSA 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 - Lesions are in various stages of healing, marked, rapid improvement since starting prednisone - will continue prednisone 60mg daily (today is day #7) - continue Vanc (day #12) - topical bacitracin - lowered oxycodone to 5mg PRN, discussed with patient Cocaine abuse - Addiction consult appreciated - Patient prefers to go to [facility] for rehab Nicotine dependence - Continue Nicotine patch Bipolar disorder - Continue Zoloft, Seroquel Visit type - Emergency Visit Emergency Visit: Yes ED Registration Date: 12/08/17 Care time: The patient presented to the Emergency Department on the above date and was hospitalized for further evaluation of their emergent condition. - New Patient This patient is new to me today: No - Critical Care Critical Care patient: No
--- NOTE | 2017-12-19 14:21 | PN ---
Progress Note, Physician History of Present Illness: doing well no issues rash improving - Current Medication List Current Medications: Active Medications Acamprosate (Campral -) 666 mg PO TID [facility] Last Admin: 12/19/17 05:59 Dose: Not Given Acetaminophen (Tylenol -) 650 mg PO Q6H PRN PRN Reason: PAIN LEVEL 1 - 3 Last Admin: 12/19/17 09:23 Dose: 650 mg Ascorbic Acid (Vitamin C -) 500 mg PO DAILY [facility] Last Admin: 12/19/17 09:21 Dose: 500 mg Bacitracin (Bacitracin -) 1 applic TP TID [facility] Last Admin: 12/19/17 06:45 Dose: 1 applic Diphenhydramine HCl (Benadryl -) 25 mg PO Q6H PRN PRN Reason: FOR ITCHING Last Admin: 12/19/17 09:19 Dose: 25 mg Docusate Sodium (Colace -) 100 mg PO DAILY [facility] Last Admin: 12/19/17 09:19 Dose: 100 mg Vancomycin HCl 1,250 mg/ (Dextrose) 250 mls @ 166.667 mls/hr IVPB 0800,1999 [facility] ; Protocol Last Admin: 12/19/17 08:52 Dose: 166.667 mls/hr Multivitamins/Minerals/Vitamin C (Tab-A-Vit -) 1 tab PO DAILY [facility] Last Admin: 12/19/17 09:21 Dose: 1 tab Nicotine (Nicoderm Patch -) 14 mg TD DAILY [facility] Last Admin: 12/19/17 09:20 Dose: 14 mg Oxycodone HCl (Roxicodone -) 5 mg PO Q4H PRN PRN Reason: PAIN LEVEL 6-10 Last Admin: 12/19/17 12:06 Dose: 5 mg Prednisone (Deltasone -) 60 mg PO DAILY [facility] Last Admin: 12/19/17 09:20 Dose: 60 mg Quetiapine Fumarate (Seroquel -) 200 mg PO HS [facility] Last Admin: 12/18/17 21:27 Dose: 200 mg Sertraline HCl (Zoloft -) 150 mg PO DAILY [facility] Last Admin: 12/19/17 09:22 Dose: 150 mg - Objective Vital Signs: Vital Signs Temperature 98.3 F 12/19/17 14:00 Pulse Rate 84 12/19/17 14:00 Respiratory Rate 20 12/19/17 14:00 Blood Pressure 147/91 12/19/17 14:00 O2 Sat by Pulse Oximetry (%) 98 12/18/17 20:26 Constitutional: Yes: No Distress, Calm Cardiovascular: Yes: Regular Rate and Rhythm Respiratory: Yes: Regular, CTA Bilaterally Gastrointestinal: Yes: Normal Bowel Sounds, Soft Musculoskeletal: Yes: WNL Extremities: Yes: WNL Integumentary: Yes: Rash (improving) Neurological: Yes: Alert, Oriented Psychiatric: Yes: Alert, Oriented Labs: CBC, BMP 12/16/17 06:23 12/16/17 06:23 INR, PTT INR 1.26 (0.83-1.09) H 12/08/17 02:00 Assessment/Plan rash resolving drug abuse skin infection mrsa rash tobacco abuse nasla rash plan ct abx wound care rest as per the team will d/w the primary team
[2017-12-19] MEDS: QUEtiapine FUMARATE 200 MG TABLET PO SCH (21:15)
[2017-12-20] MEDS: oxyCODONE HCL 5 MG TABLET PO PRN ×5 (04:59→22:43)
[2017-12-20] MEDS: ACETAMINOPHEN 325 MG TABLET (FP) PO PRN ×3 (05:05→17:13)
[2017-12-20] MEDS: diphenhydrAMINE HCL 25 MG CAPSULE (FP) PO PRN ×3 (05:05→17:13)
[2017-12-20] MEDS: ACAMPROSATE CALCIUM 333 MG TABLET.DR PO SCH ×3 (06:56→21:09)
[2017-12-20] MEDS: BACITRACIN 15 GM TUBE TOPICAL OINTMENT TP SCH ×3 (06:57→21:09)
[2017-12-20] MEDS ORDERED: PT OWN MED DRAWER 7, Y5N ONE ×3 (08:04→20:51)
[2017-12-20] MEDS: VANCOMYCIN 1,250 MG in DEXTROSE 5%-WATER - 250 ML IVPB SCH ×2 (08:31→20:20)
[2017-12-20] MEDS: predniSONE 20 MG TABLET (UD) PO SCH (09:24)
[2017-12-20] MEDS: ASCORBIC ACID 500 MG TABLET (FP) PO SCH (09:25)
[2017-12-20] MEDS: MULTIVITAMINS (DAILY MVI) TABLET (FP) PO SCH (09:25)
[2017-12-20] MEDS: SERTRALINE HCL 50 MG TABLET (FP) PO SCH (09:25)
[2017-12-20] MEDS: DOCUSATE SODIUM 100 MG CAPSULE (FP) PO SCH (09:26)
[2017-12-20] MEDS: NICOTINE 14 MG/24 HOURS TOPICAL PATCH TD SCH (09:28)
--- NOTE | 2017-12-20 10:48 | PN ---
Physical Exam: SUBJECTIVE: Patient seen and examined at the bedside. Wants to stop using drugs, wants to restart her psyche meds in order to help with drug use. stopped home psyche meds then starting using cocaine, spent daily $300 for cocaine use. States her skin lesions are improving Pain severe 10/14 OBJECTIVE: generalized skin lesion, most prominent on her back. has large skin lesion on top of her head that she is currently scratching (has blood under her nails). this wound needs to be covered. Pt admitted for skin lesions, generalized. Likely reaction to laced cocaine. Pt states she does not use any other drugs. [place]'s in the past but relapsed to cocaine use. Pt states she is motivated to stop using after this current admission and wants to go to rehab. wants to restart her psyche meds. Vital Signs Period Temp Pulse Resp BP Sys/Laguerre Pulse Ox Last 24 Hr 98.3 F-98.4 F 84-96 18-20 147-152/91-95 98 GENERAL: The patient is awake, alert, and fully oriented, in no acute distress HEAD: large skin lesion on top of her head. would clean this wound with NS and keep it lightly covered. EYES: PERRL, extraocular movements intact, sclera anicteric, conjunctiva clear. No ptosis. ENT: Ears normal, nares patent, oropharynx clear without exudates, moist mucous membranes. NECK: Trachea midline, full range of motion, supple. ABDOMEN: Soft, nontender, nondistended, normoactive bowel sounds EXTREMITIES: no edema. NEUROLOGICAL: Normal speech, gait not observed. PSYCH: Normal mood, normal affect. SKIN: generalized skin lesions Active Medications Generic Name Dose Route Start Last Admin Trade Name Freq PRN Reason Stop Dose Admin Acamprosate 666 mg 12/08/17 22:00 12/20/17 06:56 Campral - PO Not Given TID JOHN Acetaminophen 650 mg 12/13/17 14:28 12/20/17 05:05 Tylenol - PO 650 mg Q6H PRN Administration PAIN LEVEL 1 - 3 Ascorbic Acid 500 mg 12/16/17 10:00 12/20/17 09:25 Vitamin C - PO 500 mg DAILY JOHN Administration Bacitracin 1 applic 12/15/17 14:00 12/20/17 06:57 Bacitracin - TP 1 applic TID JOHN Administration Diphenhydramine HCl 25 mg 12/08/17 16:12 12/20/17 05:05 Benadryl - PO 25 mg Q6H PRN Administration FOR ITCHING Docusate Sodium 100 mg 12/10/17 10:00 12/20/17 09:26 Colace - PO 100 mg DAILY JOHN Administration Vancomycin HCl 1,250 mg/ 250 mls @ 166.667 mls/hr 12/12/17 20:00 12/20/17 08: 31 Dextrose IVPB 166.667 mls/hr 08 JOHN Administration Protocol Multivitamins/Minerals/Vitamin C 1 tab 12/16/17 10:00 12/20/17 09:25 Tab-A-Vit - PO 1 tab DAILY JOHN Administration Nicotine 14 mg 12/08/17 13:45 12/20/17 09:28 Nicoderm Patch - TD 14 mg DAILY JOHN Administration Oxycodone HCl 5 mg 12/20/17 10:46 Roxicodone - PO Q4H PRN PAIN LEVEL 4 - 6 Oxycodone HCl 10 mg 12/20/17 10:46 Roxicodone - PO Q6H PRN PAIN LEVEL 7 - 10 Prednisone 60 mg 12/18/17 10:00 12/20/17 09:24 Deltasone - PO 60 mg DAILY JOHN Administration Quetiapine Fumarate 200 mg 12/12/17 22:00 12/19/17 21:15 Seroquel - PO 200 mg HS JOHN Administration Sertraline HCl 150 mg 12/09/17 10:00 12/20/17 09:25 Zoloft - PO 150 mg DAILY JOHN Administration ASSESSMENT/PLAN: Patient is a 37 year old female with a past medical h istory of bipolar disorder and cocaine abuse. She presented to the ED on 12/08/2017 with complaints of multiple blistering bloody lesions throughout her scalp, chest, breasts, arms, back, and groin. She reports that about 1 month ago, she started buying cocaine from a new drug dealer that she believes may have laced her cocaine. She started developing multiple blistering skin lesions throughout her back, chest, breasts, arms, and groin region. She reports the lesions were very itchy and continued to scratch all over causing her lesions to bleed. Patient used to follow up with a psychiatrist for her bipolar depression but stopped taking all of her medications and began to again use cocaine. ID: Generalized skin lesions-open ulcerations/MRSA/Vasculitis Likely secondary to laced cocaine. Wound culture with MRSA. On Prednisone, Vancomycin BID, Benadryl Seen by dermatology, area to be kept clean with application of Bactroban cream Largest lesion on her head, consult placed for plastic surgery. Will hydrate with NS @ 75/cc/hyr Psyche Bipolar Disorder has been off her medications for some time, then replapsed. willing to go to rehab for substance abuse. psyche consulted for possible medication restart. Monitor mental status On Zoloft and Seroquel. Electrolytes: Hyponatremia, mild. start NS @ 75cc/hr fen ns @ 75cc/hr monitor electrolytes low salt diet prophy SCDs full code Visit type - Emergency Visit Emergency Visit: Yes ED Registration Date: 12/08/17 Care time: The patient presented to the Emergency Department on the above date and was hospitalized for further evaluation of their emergent condition. - New Patient This patient is new to me today: Yes Date on this admission: 12/20/17 - Critical Care Critical Care patient: No - Discharge Referral Referred to [facility] Med P.C.: No
[2017-12-20 12:42] LABS: BASO % 0.6 % (0-2.0); EOS % 4.4 % (0-4.5); HEMATOCRIT 37.5 % (32.4-45.2); HEMOGLOBIN 11.8 GM/dL (10.7-15.3); LYMPH % 8.1 % (8-40); MCH 22.9 pg (25.7-33.7); MCHC 31.4 g/dl (32.0-36.0); MEAN CELL VOLUME 72.9 fl (80-96); MEAN PLT VOLUME 7.7 fl (7.5-11.1); MONO % 4.9 % (3.8-10.2); PLATELET COUNT 409 K/MM3 (134-434); RBC 5.14 M/mm3 (3.60-5.2); RDW 14.1 % (11.6-15.6); WHITE BLOOD COUNT 11.6 K/mm3 (4.0-10.0)
--- NOTE | 2017-12-20 12:57 | PN ---
Progress Note, Physician History of Present Illness: doing well no issues rash improving - Current Medication List Current Medications: Active Medications Acamprosate (Campral -) 666 mg PO TID [facility] Last Admin: 12/20/17 06:56 Dose: Not Given Acetaminophen (Tylenol -) 650 mg PO Q6H PRN PRN Reason: PAIN LEVEL 1 - 3 Last Admin: 12/20/17 11:06 Dose: 650 mg Ascorbic Acid (Vitamin C -) 500 mg PO DAILY [facility] Last Admin: 12/20/17 09:25 Dose: 500 mg Bacitracin (Bacitracin -) 1 applic TP TID [facility] Last Admin: 12/20/17 06:57 Dose: 1 applic Diphenhydramine HCl (Benadryl -) 25 mg PO Q6H PRN PRN Reason: FOR ITCHING Last Admin: 12/20/17 11:06 Dose: 25 mg Docusate Sodium (Colace -) 100 mg PO DAILY [facility] Last Admin: 12/20/17 09:26 Dose: 100 mg Vancomycin HCl 1,250 mg/ (Dextrose) 250 mls @ 166.667 mls/hr IVPB 0800,1999 [facility] ; Protocol Last Admin: 12/20/17 08:31 Dose: 166.667 mls/hr Multivitamins/Minerals/Vitamin C (Tab-A-Vit -) 1 tab PO DAILY [facility] Last Admin: 12/20/17 09:25 Dose: 1 tab Nicotine (Nicoderm Patch -) 14 mg TD DAILY [facility] Last Admin: 12/20/17 09:28 Dose: 14 mg Oxycodone HCl (Roxicodone -) 5 mg PO Q4H PRN PRN Reason: PAIN LEVEL 4 - 6 Oxycodone HCl (Roxicodone -) 10 mg PO Q6H PRN PRN Reason: PAIN LEVEL 7 - 10 Prednisone (Deltasone -) 60 mg PO DAILY [facility] Last Admin: 12/20/17 09:24 Dose: 60 mg Quetiapine Fumarate (Seroquel -) 200 mg PO HS [facility] Last Admin: 12/19/17 21:15 Dose: 200 mg Sertraline HCl (Zoloft -) 150 mg PO DAILY [facility] Last Admin: 12/20/17 09:25 Dose: 150 mg - Objective Vital Signs: Vital Signs Temperature 98.7 F 12/20/17 09:00 Pulse Rate 97 H 12/20/17 09:00 Respiratory Rate 18 12/20/17 09:00 Blood Pressure 131/72 12/20/17 09:00 O2 Sat by Pulse Oximetry (%) 99 12/20/17 09:00 Constitutional: Yes: No Distress, Calm Cardiovascular: Yes: Regular Rate and Rhythm Respiratory: Yes: Regular, CTA Bilaterally Gastrointestinal: Yes: Normal Bowel Sounds, Soft Musculoskeletal: Yes: WNL Extremities: Yes: WNL Integumentary: Yes: Rash Neurological: Yes: Alert, Oriented Labs: INR, PTT INR 1.26 (0.83-1.09) H 12/08/17 02:00 Assessment/Plan rash resolving drug abuse skin infection mrsa rash tobacco abuse nasla rash plan ct abx wound care rest as per the team will d/w the primary team about switiching to oral
[2017-12-20 13:10] LABS: ALBUMIN 2.9 g/dl (3.4-5.0); ALK PHOS 79 U/L (45-117); ANION GAP 7 MMOL/L (8-16); BILIRUBIN,TOTAL 0.2 mg/dL (0.2-1); BLOOD UREA NITROGEN 13 mg/dL (7-18); CALCIUM 9.3 mg/dL (8.5-10.1); CHLORIDE 99 mmol/L (98-107); CO2 27 mmol/L (21-32); CREATININE 0.8 mg/dL (0.55-1.3); GLUCOSE,RANDOM 159 mg/dL (74-106); POTASSIUM 4.7 mmol/L (3.5-5.1); SGOT/AST 29 U/L (15-37); SGPT/ALT 75 U/L (13-61); SODIUM 134 mmol/L (136-145); TOT PROT 7.2 g/dl (6.4-8.2)
--- NOTE | 2017-12-20 15:40 | CON.PSY ---
Psychiatry Consult Chief Complaint: 37 year old female wiyh a long history of SUbstance abuse and ? bipolar Disorder. Came to the Hospital with Bacterial infection from Cocaine abuse. Symptoms: reports: Irritability - Previous Psychiatric Treatment Outpatient: More than 6 mos ago Inpatient: 2 or more prior admissions - Previous Substance Abuse Treatment Outpatient: More than 6 mos ago - Reason for Previous Treatment Reason for Previous Treatment: Biploar Illness, Alcohol Abuse, Cocaine - Current Medications Current Medications: Active Medications Acamprosate (Campral -) 666 mg PO TID [facility] Last Admin: 12/20/17 13:55 Dose: Not Given Acetaminophen (Tylenol -) 650 mg PO Q6H PRN PRN Reason: PAIN LEVEL 1 - 3 Last Admin: 12/20/17 11:06 Dose: 650 mg Ascorbic Acid (Vitamin C -) 500 mg PO DAILY [facility] Last Admin: 12/20/17 09:25 Dose: 500 mg Bacitracin (Bacitracin -) 1 applic TP TID [facility] Last Admin: 12/20/17 14:00 Dose: 1 applic Diphenhydramine HCl (Benadryl -) 25 mg PO Q6H PRN PRN Reason: FOR ITCHING Last Admin: 12/20/17 11:06 Dose: 25 mg Docusate Sodium (Colace -) 100 mg PO DAILY [facility] Last Admin: 12/20/17 09:26 Dose: 100 mg Vancomycin HCl 1,250 mg/ (Dextrose) 250 mls @ 166.667 mls/hr IVPB 0800,2000 [facility] ; Protocol Last Admin: 12/20/17 08:31 Dose: 166.667 mls/hr Sodium Chloride (Normal Saline -) 1,000 mls @ 75 mls/hr IV ASDIR [facility] Multivitamins/Minerals/Vitamin C (Tab-A-Vit -) 1 tab PO DAILY [facility] Last Admin: 12/20/17 09:25 Dose: 1 tab Nicotine (Nicoderm Patch -) 14 mg TD DAILY [facility] Last Admin: 12/20/17 09:28 Dose: 14 mg Oxycodone HCl (Roxicodone -) 5 mg PO Q4H PRN PRN Reason: PAIN LEVEL 4 - 6 Oxycodone HCl (Roxicodone -) 10 mg PO Q6H PRN PRN Reason: PAIN LEVEL 7 - 10 Last Admin: 12/20/17 13:58 Dose: 10 mg Prednisone (Deltasone -) 60 mg PO DAILY [facility] Last Admin: 12/20/17 09:24 Dose: 60 mg Quetiapine Fumarate (Seroquel -) 200 mg PO [facility] Last Admin: 12/19/17 21:15 Dose: 200 mg Sertraline HCl (Zoloft -) 150 mg PO DAILY [facility] Last Admin: 12/20/17 09:25 Dose: 150 mg - Allergies Allergies: Allergies Allergy/AdvReac Type Severity Reaction Status Date / Time No Known Allergies Allergy Verified 12/07/17 19:49 - Current Living Status Usual Living Arrangement: With Significant Other - Current Mental Status Evaluation Appearance: Disheveled Attitude: Cooperative - Affect Affect: Labile Appropriateness: Appropriate to Content - Mood Mood: Irritable - Speech/Language Expressive: Coherent - Psychomotor Activity Psychomotor Activity: Hyperactive - Thought Process Thought Process: Intact - Thought Content Hallucinations: Absent Delusions: Absent - Self Perception Self Perception: No Impairment - Cognition Attention: Alert Orientation: Time Memory, Immediate Recall: Intact Memory, Short Term: 3/3 Memory, Remote with Promptin/3 - Concentration Serial Sevens Intact: No Simple Calculations Intact: Yes - Abstraction Proverb Interpretation: Intact Judgement: Moderately Impaired - Insight Insight: Impaired - Impulse Control Impulse Control: Moderately Impaired - Suicidal Ideation Suicidal Ideation: No - Homicidal Ideation Homicidal Ideation: No Assessment/Plan 1) [facility] 2) Explore transfer to [facility] for Drug Rehab.
[2017-12-20] MEDS: SODIUM CHLORIDE 1,000 ML IV SCH (15:47)
--- NOTE | 2017-12-20 18:14 | CONSULT ---
Consult Consult Specialty:: Plastic Surgery - Past Medical History ...LMP: 07/15/13 Psych: Yes: Bipolar - Alcohol/Substance Use Hx Alcohol Use: Yes (reports drinking since 16 years old) - Smoking History Smoking history: Never smoked Have you smoked in the past 12 months: Yes Aproximately how many cigarettes per day: 20 - Social History Usual Living Arrangement: With Significant Other Home Medications - Allergies Allergies/Adverse Reactions: Allergies Allergy/AdvReac Type Severity Reaction Status Date / Time No Known Allergies Allergy Verified 12/07/17 19:49 - Home Medications Home Medications: Ambulatory Orders Acamprosate Calcium [Campral -] 666 mg PO TID #120 tablet. 08/27/13 Sertraline HCl [Zoloft -] 150 mg PO DAILY #30 tablet 08/27/13 Quetiapine Fumarate [Seroquel -] 200 mg PO HS 12/12/17 Physical Exam Vital Signs: Vital Signs Temperature 98.7 F 12/20/17 09:00 Pulse Rate 97 H 12/20/17 09:00 Respiratory Rate 18 12/20/17 09:00 Blood Pressure 131/72 12/20/17 09:00 O2 Sat by Pulse Oximetry (%) 99 12/20/17 09:00 Labs: CBC, BMP 12/20/17 12:25 12/20/17 12:25 Assessment/Plan 37 year old woman with history of cocaine abuse- admitted with multiple skin and scalp ulcerations of unknown etiology. Patient states it was related to snorting cocaine that she felt was laced with something. She states that lesion on her sclap has reduced in size since admission.Difficult to fully understand etiology. Patient is very combative and manipulative in conversation. Physical exam reveals multiple open sores including a large area on her scalp. Lesions on scalp and body all look clean, without any surrounding erythema. Would suggest continuing local wound care and monitoring. Would not think that any wound closure procedures are indicated at this time, especially while patient's drug use is poorly defined or controlled. These wounds do not appear as the source of any local or systemic infection. Thank you.
[2017-12-20] MEDS: QUEtiapine FUMARATE 200 MG TABLET PO SCH (21:09)
[2017-12-21] MEDS: diphenhydrAMINE HCL 25 MG CAPSULE (FP) PO PRN ×4 (02:01→23:25)
[2017-12-21] MEDS: ACETAMINOPHEN 325 MG TABLET (FP) PO PRN ×4 (02:01→23:25)
[2017-12-21] MEDS: ACAMPROSATE CALCIUM 333 MG TABLET.DR PO SCH ×3 (05:30→21:10)
[2017-12-21] MEDS: BACITRACIN 15 GM TUBE TOPICAL OINTMENT TP SCH ×3 (05:31→21:10)
[2017-12-21] MEDS: oxyCODONE HCL 5 MG TABLET PO PRN ×4 (05:50→20:08)
[2017-12-21] MEDS: SODIUM CHLORIDE 1,000 ML IV SCH ×3 (05:54→16:32)
[2017-12-21 06:42] LABS: BASO % 0.8 % (0-2.0); EOS % 6.1 % (0-4.5); HEMOGLOBIN 11.3 GM/dL (10.7-15.3); LYMPH % 20.2 % (8-40); MCH 22.9 pg (25.7-33.7); MCHC 31.3 g/dl (32.0-36.0); MEAN CELL VOLUME 73.2 fl (80-96); MEAN PLT VOLUME 7.7 fl (7.5-11.1); MONO % 10.8 % (3.8-10.2); NEUT % 62.1 % (42.8-82.8); PLATELET COUNT 404 K/MM3 (134-434); RBC 4.92 M/mm3 (3.60-5.2); RDW 14.3 % (11.6-15.6); WHITE BLOOD COUNT 9.7 K/mm3 (4.0-10.0)
[2017-12-21 07:48] LABS: ALBUMIN 2.6 g/dl (3.4-5.0); ALK PHOS 71 U/L (45-117); ANION GAP 9 MMOL/L (8-16); BILIRUBIN,TOTAL 0.1 mg/dL (0.2-1); BLOOD UREA NITROGEN 15 mg/dL (7-18); CALCIUM 8.9 mg/dL (8.5-10.1); CHLORIDE 104 mmol/L (98-107); CO2 25 mmol/L (21-32); CREATININE 0.7 mg/dL (0.55-1.3); GLUCOSE,RANDOM 150 mg/dL (74-106); POTASSIUM 3.9 mmol/L (3.5-5.1); SGOT/AST 26 U/L (15-37); SGPT/ALT 62 U/L (13-61); SODIUM 138 mmol/L (136-145); TOT PROT 6.5 g/dl (6.4-8.2)
[2017-12-21] MEDS: VANCOMYCIN 1,250 MG in DEXTROSE 5%-WATER - 250 ML IVPB SCH (08:29)
[2017-12-21] MEDS ORDERED: PT OWN MED DRAWER 7, Y5N ONE ×2 (09:37→20:59)
[2017-12-21] MEDS: MULTIVITAMINS (DAILY MVI) TABLET (FP) PO SCH (09:41)
[2017-12-21] MEDS: ASCORBIC ACID 500 MG TABLET (FP) PO SCH (09:41)
[2017-12-21] MEDS: predniSONE 20 MG TABLET (UD) PO SCH (09:41)
[2017-12-21] MEDS: DOCUSATE SODIUM 100 MG CAPSULE (FP) PO SCH (09:41)
[2017-12-21] MEDS: NICOTINE 14 MG/24 HOURS TOPICAL PATCH TD SCH (09:42)
[2017-12-21] MEDS: SERTRALINE HCL 50 MG TABLET (FP) PO SCH (09:42)
--- NOTE | 2017-12-21 13:20 | PN ---
Progress Note, Physician History of Present Illness: doing well no issues rash improving - Current Medication List Current Medications: Active Medications Acamprosate (Campral -) 666 mg PO TID [facility] Last Admin: 12/21/17 05:30 Dose: Not Given Acetaminophen (Tylenol -) 650 mg PO Q6H PRN PRN Reason: PAIN LEVEL 1 - 3 Last Admin: 12/21/17 09:51 Dose: 650 mg Ascorbic Acid (Vitamin C -) 500 mg PO DAILY [facility] Last Admin: 12/21/17 09:41 Dose: 500 mg Bacitracin (Bacitracin -) 1 applic TP TID [facility] Last Admin: 12/21/17 05:31 Dose: 1 applic Diphenhydramine HCl (Benadryl -) 25 mg PO Q6H PRN PRN Reason: FOR ITCHING Last Admin: 12/21/17 09:50 Dose: 25 mg Docusate Sodium (Colace -) 100 mg PO DAILY [facility] Last Admin: 12/21/17 09:41 Dose: 100 mg Vancomycin HCl 1,250 mg/ (Dextrose) 250 mls @ 166.667 mls/hr IVPB 0800,2000 [facility] ; Protocol Last Admin: 12/21/17 08:29 Dose: 166.667 mls/hr Sodium Chloride (Normal Saline -) 1,000 mls @ 75 mls/hr IV ASDIR [facility] Last Admin: 12/21/17 08:30 Dose: 75 mls/hr Multivitamins/Minerals/Vitamin C (Tab-A-Vit -) 1 tab PO DAILY [facility] Last Admin: 12/21/17 09:41 Dose: 1 tab Nicotine (Nicoderm Patch -) 14 mg TD DAILY [facility] Last Admin: 12/21/17 09:42 Dose: 14 mg Oxycodone HCl (Roxicodone -) 5 mg PO Q4H PRN PRN Reason: PAIN LEVEL 4 - 6 Last Admin: 12/21/17 09:50 Dose: 5 mg Oxycodone HCl (Roxicodone -) 10 mg PO Q6H PRN PRN Reason: PAIN LEVEL 7 - 10 Last Admin: 12/21/17 05:50 Dose: 10 mg Prednisone (Deltasone -) 60 mg PO DAILY [facility] Last Admin: 12/21/17 09:41 Dose: 60 mg Quetiapine Fumarate (Seroquel -) 200 mg PO [facility] Last Admin: 12/20/17 21:09 Dose: 200 mg Sertraline HCl (Zoloft -) 150 mg PO DAILY [facility] Last Admin: 12/21/17 09:42 Dose: 150 mg - Objective Vital Signs: Vital Signs Temperature 98.9 F 12/21/17 09:00 Pulse Rate 88 12/21/17 09:00 Respiratory Rate 20 12/21/17 09:00 Blood Pressure 131/82 12/21/17 09:00 O2 Sat by Pulse Oximetry (%) 99 12/21/17 09:00 Constitutional: Yes: No Distress, Calm Cardiovascular: Yes: Regular Rate and Rhythm Respiratory: Yes: Regular, CTA Bilaterally Gastrointestinal: Yes: Normal Bowel Sounds, Soft Musculoskeletal: Yes: WNL Extremities: Yes: WNL Neurological: Yes: Alert, Oriented Psychiatric: Yes: Alert, Oriented Labs: CBC, BMP 12/21/17 06:00 12/21/17 06:00 INR, PTT INR 1.26 (0.83-1.09) H 12/08/17 02:00 Assessment/Plan rash resolving drug abuse skin infection mrsa rash tobacco abuse nasla rash plan ct oral abx to give abx for another 3 weeks rest as per the team improving
--- NOTE | 2017-12-21 13:39 | PN ---
Physical Exam: SUBJECTIVE: Patient seen and examined at the bedside. Feels well, still scratching her lesion. Nursing applied mepitel which seems to working well for her. OBJECTIVE: Spoke to [facility] about acceptance of patient, however, patient continues to need nursing care for open wounds and this service will not be provided at [facility]. She will need outpatient. follow up and monitoring, possibly at a nursing facility. Vital Signs Period Temp Pulse Resp BP Sys/Laguerre Pulse Ox Last 24 Hr 98.1 F-98.9 F 88-100 18-20 131-163/82-96 99-99 GENERAL: The patient is awake, alert, and fully oriented, in no acute distress HEAD: large skin lesion on top of her head. would clean this wound with NS and keep it lightly covered. EYES: PERRL, extraocular movements intact, sclera anicteric, conjunctiva clear. No ptosis. ENT: Ears normal, nares patent, oropharynx clear without exudates, moist mucous membranes. NECK: Trachea midline, full range of motion, supple. ABDOMEN: Soft, nontender, nondistended, normoactive bowel sounds EXTREMITIES: no edema. NEUROLOGICAL: Normal speech, gait not observed. PSYCH: Normal mood, normal affect. SKIN: generalized skin lesions Laboratory Results - last 24 hr 12/21/17 12/21/17 12/21/17 06:00 06:00 06:00 WBC 9.7 RBC 4.92 Hgb 11.3 Hct 36.0 MCV 73.2 L MCH 22.9 L MCHC 31.3 L RDW 14.3 Plt Count 404 MPV 7.7 Absolute Neuts (auto) 6.0 Neutrophils % 62.1 D Lymphocytes % 20.2 D Monocytes % 10.8 H D Eosinophils % 6.1 H Basophils % 0.8 Nucleated RBC % 0 Sodium 138 Potassium 3.9 Chloride 104 Carbon Dioxide 25 Anion Gap 9 BUN 15 Creatinine 0.7 Creat Clearance w eGFR > 60 Random Glucose 150 H Hemoglobin A1c % 5.7 Calcium 8.9 Magnesium 2.0 Total Bilirubin 0.1 L AST 26 ALT 62 H Alkaline Phosphatase 71 Total Protein 6.5 Albumin 2.6 L Vancomycin Pre-Dose 12/21/17 08:05 WBC RBC Hgb Hct MCV MCH MCHC RDW Plt Count MPV Absolute Neuts (auto) Neutrophils % Lymphocytes % Monocytes % Eosinophils % Basophils % Nucleated RBC % Sodium Potassium Chloride Carbon Dioxide Anion Gap BUN Creatinine Creat Clearance w eGFR Random Glucose Hemoglobin A1c % Calcium Magnesium Total Bilirubin AST ALT Alkaline Phosphatase Total Protein Albumin Vancomycin Pre-Dose 10.1 L Active Medications Generic Name Dose Route Start Last Admin Trade Name Freq PRN Reason Stop Dose Admin Acamprosate 666 mg 12/08/17 22:00 12/21/17 05:30 Campral - PO Not Given TID JOHN Acetaminophen 650 mg 12/13/17 14:28 12/21/17 09:51 Tylenol - PO 650 mg Q6H PRN Administration PAIN LEVEL 1 - 3 Ascorbic Acid 500 mg 12/16/17 10:00 12/21/17 09:41 Vitamin C - PO 500 mg DAILY [facility] Administration Bacitracin 1 applic 12/15/17 14:00 12/21/17 05:31 Bacitracin - TP 1 applic TID [facility] Administration Diphenhydramine HCl 25 mg 12/08/17 16:12 12/21/17 09:50 Benadryl - PO 25 mg Q6H PRN Administration FOR ITCHING Docusate Sodium 100 mg 12/10/17 10:00 12/21/17 09:41 Colace - PO 100 mg DAILY JOHN Administration Doxycycline Hyclate 100 mg 12/21/17 18:00 Vibramycin - PO BID@1000,1800 [facility] Sodium Chloride 1,000 mls @ 75 mls/hr 12/20/17 15:30 12/21/17 08:30 Normal Saline - IV 75 mls/hr ASDIR [facility] Administration Multivitamins/Minerals/Vitamin C 1 tab 12/16/17 10:00 12/21/17 09:41 Tab-A-Vit - PO 1 tab DAILY [facility] Administration Nicotine 14 mg 12/08/17 13:45 12/21/17 09:42 Nicoderm Patch - TD 14 mg DAILY [facility] Administration Oxycodone HCl 5 mg 12/20/17 10:46 12/21/17 09:50 Roxicodone - PO 5 mg Q4H PRN Administration PAIN LEVEL 4 - 6 Oxycodone HCl 10 mg 12/20/17 10:46 12/21/17 05:50 Roxicodone - PO 10 mg Q6H PRN Administration PAIN LEVEL 7 - 10 Prednisone 60 mg 12/18/17 10:00 12/21/17 09:41 Deltasone - PO 60 mg DAILY [facility] Administration Quetiapine Fumarate 200 mg 12/12/17 22:00 12/20/17 21:09 Seroquel - PO 200 mg HS JOHN Administration Sertraline HCl 150 mg 12/09/17 10:00 12/21/17 09:42 Zoloft - PO 150 mg DAILY [facility] Administration ASSESSMENT/PLAN: Patient is a 37 year old female with a past medical history of bipolar disorder and cocaine abuse. She presented to the ED on 12/08/2017 with complaints of multiple blistering bloody lesions throughout her scalp, chest, breasts, arms, back, and groin. She reports that about 1 month ago, she started buying cocaine from a new drug dealer that she believes may have laced her cocaine. She started developing multiple blistering skin lesions throughout her back, chest, breasts, arms, and groin region. She reports the lesions were very itchy and continued to scratch all over causing her lesions to bleed. Patient used to follow up with a psychiatrist for her bipolar depression but stopped taking all of her medications and began to again use cocaine. ID: Generalized skin lesions-open ulcerations/MRSA/Vasculitis Likely secondary to laced cocaine. Wound culture consitent with MRSA. On Prednisone, Vancomycin BID, Benadryl Seen by dermatology, area to be kept clean with application of Bactroban cream Largest open lesion on her head, mepitel to be applied on open wounds Psyche Bipolar Disorder has been off her medications for some time, then relapsed. willing to go to rehab for substance abuse. psyche seen and evaluated patient On Zoloft and Seroquel. Electrolytes: Hyponatremia, resolved fen encourage PO intake monitor electrolytes low salt diet prophy SCDs full code Visit type - Emergency Visit Emergency Visit: Yes ED Registration Date: 12/08/17 Care time: The patient presented to the Emergency Department on the above date and was hospitalized for further evaluation of their emergent condition. - New Patient This patient is new to me today: No - Critical Care Critical Care patient: No - Discharge Referral Referred to [facility] Med P.C.: No
[2017-12-21] MEDS: DOXYCYCLINE HYCLATE 100 MG CAPSULE PO SCH (17:29)
[2017-12-21] MEDS: QUEtiapine FUMARATE 200 MG TABLET PO SCH (21:07)
[2017-12-22] MEDS: oxyCODONE HCL 5 MG TABLET PO PRN ×4 (02:36→19:15)
[2017-12-22] MEDS: ACETAMINOPHEN 325 MG TABLET (FP) PO PRN ×3 (05:26→22:20)
[2017-12-22] MEDS: BACITRACIN 15 GM TUBE TOPICAL OINTMENT TP SCH ×3 (07:05→22:03)
[2017-12-22] MEDS: diphenhydrAMINE HCL 25 MG CAPSULE (FP) PO PRN ×3 (07:05→19:15)
[2017-12-22] MEDS: ACAMPROSATE CALCIUM 333 MG TABLET.DR PO SCH ×3 (07:06→22:00)
[2017-12-22] MEDS: SERTRALINE HCL 50 MG TABLET (FP) PO SCH (09:13)
[2017-12-22] MEDS: DOCUSATE SODIUM 100 MG CAPSULE (FP) PO SCH (09:13)
[2017-12-22] MEDS: predniSONE 20 MG TABLET (UD) PO SCH (09:14)
[2017-12-22] MEDS: DOXYCYCLINE HYCLATE 100 MG CAPSULE PO SCH ×2 (09:14→18:37)
[2017-12-22] MEDS: MULTIVITAMINS (DAILY MVI) TABLET (FP) PO SCH (09:14)
[2017-12-22] MEDS: ASCORBIC ACID 500 MG TABLET (FP) PO SCH (09:14)
[2017-12-22] MEDS: NICOTINE 14 MG/24 HOURS TOPICAL PATCH TD SCH (09:15)
[2017-12-22 10:56] LABS: BASO % 0.5 % (0-2.0); HEMATOCRIT 37.2 % (32.4-45.2); HEMOGLOBIN 11.6 GM/dL (10.7-15.3); LYMPH % 21.5 % (8-40); MCH 22.8 pg (25.7-33.7); MCHC 31.2 g/dl (32.0-36.0); MEAN PLT VOLUME 7.5 fl (7.5-11.1); MONO % 8.7 % (3.8-10.2); NEUT % 59.3 % (42.8-82.8); PLATELET COUNT 399 K/MM3 (134-434); RDW 13.9 % (11.6-15.6); WHITE BLOOD COUNT 12.3 K/mm3 (4.0-10.0)
[2017-12-22 11:30] LABS: ALBUMIN 3.2 g/dl (3.4-5.0); ALK PHOS 80 U/L (45-117); ANION GAP 8 MMOL/L (8-16); BILIRUBIN,TOTAL 0.2 mg/dL (0.2-1); BLOOD UREA NITROGEN 19 mg/dL (7-18); CALCIUM 9.6 mg/dL (8.5-10.1); CHLORIDE 103 mmol/L (98-107); CO2 24 mmol/L (21-32); CREATININE 0.7 mg/dL (0.55-1.3); GLUCOSE,RANDOM 108 mg/dL (74-106); MAGNESIUM 1.8 mg/dL (1.8-2.4); POTASSIUM 4.3 mmol/L (3.5-5.1); SGOT/AST 38 U/L (15-37); SGPT/ALT 83 U/L (13-61); SODIUM 136 mmol/L (136-145); TOT PROT 7.5 g/dl (6.4-8.2)
[2017-12-22] MEDS ORDERED: PT OWN MED DRAWER 7, Y5N ONE ×4 (14:26→21:47)
--- NOTE | 2017-12-22 15:04 | PN ---
Progress Note, Physician History of Present Illness: doing well no issues rash improving nasal rash resolved - Current Medication List Current Medications: Active Medications Acamprosate (Campral -) 666 mg PO TID [facility] Last Admin: 12/22/17 14:33 Dose: 666 mg Acetaminophen (Tylenol -) 650 mg PO Q6H PRN PRN Reason: PAIN LEVEL 1 - 3 Last Admin: 12/22/17 05:26 Dose: 650 mg Aripiprazole (Abilify) 10 mg PO [facility] Ascorbic Acid (Vitamin C -) 500 mg PO DAILY [facility] Last Admin: 12/22/17 09:14 Dose: 500 mg Bacitracin (Bacitracin -) 1 applic TP TID [facility] Last Admin: 12/22/17 13:15 Dose: 1 applic Diphenhydramine HCl (Benadryl -) 25 mg PO Q6H PRN PRN Reason: FOR ITCHING Last Admin: 12/22/17 13:12 Dose: 25 mg Docusate Sodium (Colace -) 100 mg PO DAILY [facility] Last Admin: 12/22/17 09:13 Dose: 100 mg Doxycycline Hyclate (Vibramycin -) 100 mg PO BID@1000,1800 [facility] Last Admin: 12/22/17 09:14 Dose: 100 mg Sodium Chloride (Normal Saline -) 1,000 mls @ 75 mls/hr IV ASDIR [facility] Last Admin: 12/21/17 16:32 Dose: Not Given Multivitamins/Minerals/Vitamin C (Tab-A-Vit -) 1 tab PO DAILY [facility] Last Admin: 12/22/17 09:14 Dose: 1 tab Nicotine (Nicoderm Patch -) 14 mg TD DAILY [facility] Last Admin: 12/22/17 09:15 Dose: 14 mg Oxycodone HCl (Roxicodone -) 5 mg PO Q4H PRN PRN Reason: PAIN LEVEL 4 - 6 Last Admin: 12/22/17 13:12 Dose: 5 mg Oxycodone HCl (Roxicodone -) 10 mg PO Q6H PRN PRN Reason: PAIN LEVEL 7 - 10 Last Admin: 12/22/17 09:28 Dose: 10 mg Prednisone (Deltasone -) 50 mg PO DAILY [facility] Last Admin: 12/22/17 09:14 Dose: 50 mg Quetiapine Fumarate (Seroquel -) 200 mg PO [facility] Last Admin: 12/21/17 21:07 Dose: 200 mg Sertraline HCl (Zoloft -) 150 mg PO DAILY [facility] Last Admin: 12/22/17 09:13 Dose: 150 mg - Objective Vital Signs: Vital Signs Temperature 98.1 F 12/22/17 14:00 Pulse Rate 109 H 12/22/17 14:00 Respiratory Rate 20 12/22/17 14:00 Blood Pressure 153/93 12/22/17 14:00 O2 Sat by Pulse Oximetry (%) 100 12/22/17 09:00 Constitutional: Yes: No Distress, Calm Cardiovascular: Yes: Regular Rate and Rhythm Respiratory: Yes: Regular, CTA Bilaterally Gastrointestinal: Yes: Normal Bowel Sounds, Soft Musculoskeletal: Yes: WNL Extremities: Yes: WNL Integumentary: Yes: Rash (resolving) Wound/Incision: Yes: Open to air Neurological: Yes: Alert, Oriented Psychiatric: Yes: Alert, Oriented Labs: CBC, BMP 12/22/17 10:23 12/22/17 10:23 INR, PTT INR 1.26 (0.83-1.09) H 12/08/17 02:00 Assessment/Plan rash resolving drug abuse skin infection mrsa rash tobacco abuse nasla rash plan ct oral abx to give abx for another 3 weeks rest as per the team improving
--- NOTE | 2017-12-22 15:28 | PN ---
Physical Exam: SUBJECTIVE: Patient seen and examined at the bedside. Denies pain at this time, comfortable at rest. Spoke to patient about HIV testing, she is refusing. OBJECTIVE: Vital Signs Period Temp Pulse Resp BP Sys/Laguerre Pulse Ox Last 24 Hr 97.7 F-98.3 F 89-109 18-20 150-160/89-93 99-100 GENERAL: The patient is awake, alert, and fully oriented, in no acute distress HEAD: large skin lesion on top of her head. would clean this wound with NS and keep it lightly covered. EYES: PERRL, extraocular movements intact, sclera anicteric, conjunctiva clear. No ptosis. ENT: Ears normal, nares patent, oropharynx clear without exudates, moist mucous membranes. NECK: Trachea midline, full range of motion, supple. ABDOMEN: Soft, nontender, nondistended, normoactive bowel sounds EXTREMITIES: no edema. NEUROLOGICAL: Normal speech, gait not observed. PSYCH: Normal mood, normal affect. SKIN: generalized skin lesions, largest on scalp and on back. Laboratory Results - last 24 hr 12/22/17 12/22/17 10:23 10:23 WBC 12.3 H RBC 5.10 Hgb 11.6 Hct 37.2 MCV 73.0 L MCH 22.8 L MCHC 31.2 L RDW 13.9 Plt Count 399 MPV 7.5 Absolute Neuts (auto) 7.3 Neutrophils % 59.3 Lymphocytes % 21.5 Monocytes % 8.7 Eosinophils % 10.0 H Basophils % 0.5 Nucleated RBC % 0 Sodium 136 Potassium 4.3 Chloride 103 Carbon Dioxide 24 Anion Gap 8 BUN 19 H Creatinine 0.7 Creat Clearance w eGFR > 60 Random Glucose 108 H Calcium 9.6 Magnesium 1.8 Total Bilirubin 0.2 AST 38 H ALT 83 H Alkaline Phosphatase 80 Total Protein 7.5 Albumin 3.2 L Active Medications Generic Name Dose Route Start Last Admin Trade Name Freq PRN Reason Stop Dose Admin Acamprosate 666 mg 12/08/17 22:00 12/22/17 14:33 Campral - PO 666 mg TID JOHN Administration Acetaminophen 650 mg 12/13/17 14:28 12/22/17 05:26 Tylenol - PO 650 mg Q6H PRN Administration PAIN LEVEL 1 - 3 Aripiprazole 10 mg 12/22/17 22:00 Abilify PO HS JOHN Ascorbic Acid 500 mg 12/16/17 10:00 12/22/17 09:14 Vitamin C - PO 500 mg DAILY [facility] Administration Bacitracin 1 applic 12/15/17 14:00 12/22/17 13:15 Bacitracin - TP 1 applic TID [facility] Administration Diphenhydramine HCl 25 mg 12/08/17 16:12 12/22/17 13:12 Benadryl - PO 25 mg Q6H PRN Administration FOR ITCHING Docusate Sodium 100 mg 12/10/17 10:00 12/22/17 09:13 Colace - PO 100 mg DAILY [facility] Administration Doxycycline Hyclate 100 mg 12/21/17 18:00 12/22/17 09:14 Vibramycin - PO 100 mg BID@1000,1800 [facility] Administration Sodium Chloride 1,000 mls @ 75 mls/hr 12/20/17 15:30 12/21/17 16:32 Normal Saline - IV Not Given ASDIR [facility] Multivitamins/Minerals/Vitamin C 1 tab 12/16/17 10:00 12/22/17 09:14 Tab-A-Vit - PO 1 tab DAILY [facility] Administration Nicotine 14 mg 12/08/17 13:45 12/22/17 09:15 Nicoderm Patch - TD 14 mg DAILY [facility] Administration Oxycodone HCl 5 mg 12/20/17 10:46 12/22/17 13:12 Roxicodone - PO 5 mg Q4H PRN Administration PAIN LEVEL 4 - 6 Oxycodone HCl 10 mg 12/20/17 10:46 12/22/17 09:28 Roxicodone - PO 10 mg Q6H PRN Administration PAIN LEVEL 7 - 10 Prednisone 50 mg 12/22/17 10:00 12/22/17 09:14 Deltasone - PO 50 mg DAILY [facility] Administration Quetiapine Fumarate 200 mg 12/12/17 22:00 12/21/17 21:07 Seroquel - PO 200 mg HS [facility] Administration Sertraline HCl 150 mg 12/09/17 10:00 12/22/17 09:13 Zoloft - PO 150 mg DAILY [facility] Administration ASSESSMENT/PLAN: Patient is a 37 year old female with a past medical history of bipolar disorder and cocaine abuse. She presented to the ED on 12/08/2017 with complaints of multiple blistering bloody lesions throughout her scalp, chest, breasts, arms, back, and groin. She reports that about 6 month ago, she started buying cocaine from a new drug dealer that she believes may have laced her cocaine. She now admits that these lesions on her skin have been occurring for approximately 6 months. She reports the lesions were very itchy and continued to scratch all over causing her lesions to bleed. Patient used to follow up with a psychiatrist for her bipolar depression but stopped taking all of her medications and began to again use cocaine. She was seen at [facility] in 2014 and was prescribed medication for her bipolar depression. States that these medications helped her but she stopped taking them and began using cocaine. She feels that if she starts taking these medications to help her depression, she will refrain from cocaine. ID: Generalized skin lesions-open ulcerations/MRSA/Vasculitis/largest lesion on her head and her back. Lesions likely secondary to laced cocaine. Wound culture consistent with MRSA. On Prednisone, Benadryl and Doxycycline Will continue to taper her off Prednisone. As per ID, patient will need 3 weeks of Doxycycline PO. During hospitalization, she was seen by dermatology who advised to keep lesions clean with application of Bactroban cream Mepitel wound care to be applied to larger legions. Psyche Bipolar Disorder has been off her medications for some time, then relapsed. willing to go to rehab for substance abuse. Will restart her on Trazadone, Abilify and Sertraline. Electrolytes: Hyponatremia, resolved fen encourage PO intake monitor electrolytes low salt diet prophy SCDs full code Discharge planning to SNF. Visit type - Emergency Visit Emergency Visit: Yes ED Registration Date: 12/08/17 Care time: The patient presented to the Emergency Department on the above date and was hospitalized for further evaluation of their emergent condition. - New Patient This patient is new to me today: No - Critical Care Critical Care patient: No - Discharge Referral Referred to [facility] Med P.C.: No
[2017-12-22] MEDS ORDERED: QUEtiapine FUMARATE 200 MG TABLET PO SCH (15:29)
[2017-12-22] MEDS: SODIUM CHLORIDE 1,000 ML IV SCH (16:49)
[2017-12-22] MEDS ORDERED: ARIPiprazole 10 MG TABLET PO SCH (22:00)
[2017-12-22] MEDS ORDERED: traZODone HCL 50 MG TABLET (FP) PO SCH ×2 (22:00)
[2017-12-23] MEDS ORDERED: PT OWN MED DRAWER 7, Y5N ONE ×2 (06:07→11:08)
[2017-12-23] MEDS: diphenhydrAMINE HCL 25 MG CAPSULE (FP) PO PRN ×2 (06:14→11:15)
[2017-12-23] MEDS: oxyCODONE HCL 5 MG TABLET PO PRN ×2 (06:14→11:14)
[2017-12-23] MEDS: BACITRACIN 15 GM TUBE TOPICAL OINTMENT TP SCH ×2 (06:15→06:32)
[2017-12-23] MEDS: ACAMPROSATE CALCIUM 333 MG TABLET.DR PO SCH (06:15)
[2017-12-23 08:08] LABS: BASO % 0.8 % (0-2.0); HEMATOCRIT 35.9 % (32.4-45.2); HEMOGLOBIN 11.5 GM/dL (10.7-15.3); LYMPH % 16.2 % (8-40); MCH 23.2 pg (25.7-33.7); MCHC 31.9 g/dl (32.0-36.0); MEAN CELL VOLUME 72.7 fl (80-96); MEAN PLT VOLUME 7.7 fl (7.5-11.1); MONO % 5.7 % (3.8-10.2); NEUT % 70.3 % (42.8-82.8); PLATELET COUNT 444 K/MM3 (134-434); RBC 4.94 M/mm3 (3.60-5.2); WHITE BLOOD COUNT 11.4 K/mm3 (4.0-10.0)
[2017-12-23 09:14] LABS: ALBUMIN 2.9 g/dl (3.4-5.0); ALK PHOS 72 U/L (45-117); ANION GAP 12 MMOL/L (8-16); BILIRUBIN,TOTAL 0.2 mg/dL (0.2-1); BLOOD UREA NITROGEN 21 mg/dL (7-18); CALCIUM 9.5 mg/dL (8.5-10.1); CHLORIDE 101 mmol/L (98-107); CO2 24 mmol/L (21-32); GLUCOSE,RANDOM 142 mg/dL (74-106); MAGNESIUM 1.9 mg/dL (1.8-2.4); POTASSIUM 3.7 mmol/L (3.5-5.1); SGOT/AST 26 U/L (15-37); SGPT/ALT 71 U/L (13-61); SODIUM 137 mmol/L (136-145); TOT PROT 6.9 g/dl (6.4-8.2)
--- NOTE | 2017-12-23 09:41 | PN ---
Physical Exam: SUBJECTIVE: Patient seen and examined OBJECTIVE: Vital Signs Period Temp Pulse Resp BP Sys/Laguerre Pulse Ox Last 24 Hr 97.7 F-98.4 F 89-109 18-20 138-160/80-93 100 GENERAL: The patient is awake, alert, and fully oriented, in no acute distress. HEAD: Normal with no signs of trauma. EYES: PERRL, extraocular movements intact, sclera anicteric, conjunctiva clear. No ptosis. ENT: Ears normal, nares patent, oropharynx clear without exudates, moist mucous membranes. NECK: Trachea midline, full range of motion, supple. LUNGS: Breath sounds equal, clear to auscultation bilaterally, no wheezes, no crackles, no accessory muscle use. HEART: Regular rate and rhythm, S1, S2 without murmur, rub or gallop. ABDOMEN: Soft, nontender, nondistended, normoactive bowel sounds, no guarding, no rebound, no hepatosplenomegaly, no masses. EXTREMITIES: 2+ pulses, warm, well-perfused, no edema. NEUROLOGICAL: Cranial nerves II through XII grossly intact. Normal speech, gait not observed. PSYCH: Normal mood, normal affect. SKIN: Warm, dry, normal turgor, no rashes or lesions noted Laboratory Results - last 24 hr 12/22/17 12/22/17 12/23/17 10:23 10:23 06:50 WBC 12.3 H 11.4 H RBC 5.10 4.94 Hgb 11.6 11.5 Hct 37.2 35.9 MCV 73.0 L 72.7 L MCH 22.8 L 23.2 L MCHC 31.2 L 31.9 L RDW 13.9 14.0 Plt Count 399 444 H MPV 7.5 7.7 Absolute Neuts (auto) 7.3 8.0 Neutrophils % 59.3 70.3 Lymphocytes % 21.5 16.2 D Monocytes % 8.7 5.7 Eosinophils % 10.0 H 7.0 H Basophils % 0.5 0.8 Nucleated RBC % 0 0 Sodium 136 Potassium 4.3 Chloride 103 Carbon Dioxide 24 Anion Gap 8 BUN 19 H Creatinine 0.7 Creat Clearance w eGFR > 60 Random Glucose 108 H Calcium 9.6 Magnesium 1.8 Total Bilirubin 0.2 AST 38 H ALT 83 H Alkaline Phosphatase 80 Total Protein 7.5 Albumin 3.2 L 10/19/18 06:50 WBC RBC Hgb Hct MCV MCH MCHC RDW Plt Count MPV Absolute Neuts (auto) Neutrophils % Lymphocytes % Monocytes % Eosinophils % Basophils % Nucleated RBC % Sodium 137 Potassium 3.7 Chloride 101 Carbon Dioxide 24 Anion Gap 12 BUN 21 H Creatinine 1.0 Creat Clearance w eGFR > 60 Random Glucose 142 H Calcium 9.5 Magnesium 1.9 Total Bilirubin 0.2 AST 26 ALT 71 H Alkaline Phosphatase 72 Total Protein 6.9 Albumin 2.9 L Active Medications Generic Name Dose Route Start Last Admin Trade Name Freq PRN Reason Stop Dose Admin Acamprosate 666 mg 12/08/17 22:00 12/23/17 06:15 Campral - PO 666 mg TID JOHN Administration Acetaminophen 650 mg 12/13/17 14:28 12/22/17 22:20 Tylenol - PO 650 mg Q6H PRN Administration PAIN LEVEL 1 - 3 Aripiprazole 10 mg 12/22/17 22:00 12/22/17 22:06 Abilify PO Not Given HS JOHN Ascorbic Acid 500 mg 12/16/17 10:00 12/22/17 09:14 Vitamin C - PO 500 mg DAILY [facility] Administration Bacitracin 1 applic 12/15/17 14:00 12/23/17 06:32 Bacitracin - TP Not Given TID JOHN Diphenhydramine HCl 25 mg 12/08/17 16:12 12/23/17 06:14 Benadryl - PO 25 mg Q6H PRN Administration FOR ITCHING Docusate Sodium 100 mg 12/10/17 10:00 12/22/17 09:13 Colace - PO 100 mg DAILY JOHN Administration Doxycycline Hyclate 100 mg 12/21/17 18:00 12/22/17 18:37 Vibramycin - PO 100 mg BID@1000,1800 JOHN Administration Sodium Chloride 1,000 mls @ 75 mls/hr 12/20/17 15:30 12/22/17 16:49 Normal Saline - IV Not Given ASDIR JOHN Multivitamins/Minerals/Vitamin C 1 tab 12/16/17 10:00 12/22/17 09:14 Tab-A-Vit - PO 1 tab DAILY [facility] Administration Nicotine 14 mg 12/08/17 13:45 12/22/17 09:15 Nicoderm Patch - TD 14 mg DAILY [facility] Administration Oxycodone HCl 5 mg 12/20/17 10:46 12/22/17 13:12 Roxicodone - PO 5 mg Q4H PRN Administration PAIN LEVEL 4 - 6 Oxycodone HCl 10 mg 12/20/17 10:46 12/23/17 06:14 Roxicodone - PO 10 mg Q6H PRN Administration PAIN LEVEL 7 - 10 Prednisone 50 mg 12/22/17 10:00 12/22/17 09:14 Deltasone - PO 50 mg DAILY JOHN Administration Quetiapine Fumarate 100 mg 12/23/17 10:00 Seroquel - PO DAILY JOHN Sertraline HCl 150 mg 12/09/17 10:00 12/22/17 09:13 Zoloft - PO 150 mg DAILY [facility] Administration Trazodone HCl 100 mg 12/22/17 22:00 12/22/17 22:01 Desyrel - PO 100 mg HS JOHN Administration ASSESSMENT/PLAN:
[2017-12-23] MEDS ORDERED: QUEtiapine FUMARATE 100 MG TABLET (FP) PO SCH (10:00)
[2017-12-23] MEDS: DOCUSATE SODIUM 100 MG CAPSULE (FP) PO SCH (11:15)
[2017-12-23] MEDS: ACETAMINOPHEN 325 MG TABLET (FP) PO PRN (11:15)
[2017-12-23] MEDS: ASCORBIC ACID 500 MG TABLET (FP) PO SCH (11:15)
[2017-12-23] MEDS: MULTIVITAMINS (DAILY MVI) TABLET (FP) PO SCH (11:15)
[2017-12-23] MEDS: predniSONE 20 MG TABLET (UD) PO SCH (11:16)
[2017-12-23] MEDS: SERTRALINE HCL 50 MG TABLET (FP) PO SCH (11:16)
[2017-12-23] MEDS: NICOTINE 14 MG/24 HOURS TOPICAL PATCH TD SCH (11:17)
[2017-12-23] MEDS: DOXYCYCLINE HYCLATE 100 MG CAPSULE PO SCH (11:17)
--- NOTE | 2017-12-23 12:22 | DS ---
Physical Exam: SUBJECTIVE: Patient seen and examined at the bedside Patient for discharge home. Not accepted by any facility secondary to open lesions/mrsa. Patient in agreement to go to [facility] as an outpatient for drug rehab. OBJECTIVE: Vital Signs Period Temp Pulse Resp BP Sys/Laguerre Pulse Ox Last 24 Hr 97.8 F-98.4 F 93-109 18-20 138-153/80-93 100 PHYSICAL EXAM GENERAL: The patient is awake, alert, and fully oriented, in no acute distress HEAD: large skin lesion on top of her head. would clean this wound with NS and keep it lightly covered. EYES: PERRL, extraocular movements intact, sclera anicteric, conjunctiva clear. No ptosis. ENT: Ears normal, nares patent, oropharynx clear without exudates, moist mucous membranes. NECK: Trachea midline, full range of motion, supple. ABDOMEN: Soft, nontender, nondistended, normoactive bowel sounds EXTREMITIES: no edema. NEUROLOGICAL: Normal speech, gait not observed. PSYCH: Normal mood, normal affect. SKIN: generalized skin lesions, largest on scalp and on back. LABS Laboratory Results - last 24 hr 12/23/17 12/23/17 06:50 06:50 WBC 11.4 H RBC 4.94 Hgb 11.5 Hct 35.9 MCV 72.7 L MCH 23.2 L MCHC 31.9 L RDW 14.0 Plt Count 444 H MPV 7.7 Absolute Neuts (auto) 8.0 Neutrophils % 70.3 Lymphocytes % 16.2 D Monocytes % 5.7 Eosinophils % 7.0 H Basophils % 0.8 Nucleated RBC % 0 Sodium 137 Potassium 3.7 Chloride 101 Carbon Dioxide 24 Anion Gap 12 BUN 21 H Creatinine 1.0 Creat Clearance w eGFR > 60 Random Glucose 142 H Calcium 9.5 Magnesium 1.9 Total Bilirubin 0.2 AST 26 ALT 71 H Alkaline Phosphatase 72 Total Protein 6.9 Albumin 2.9 L HOSPITAL COURSE: ASSESSMENT/PLAN: Patient is a 37 year old female with a past medical history of bipolar disorder and cocaine abuse. She presented to the ED on 12/08/2017 with complaints of multiple blistering bloody lesions throughout her scalp, chest, breasts, arms, back, and groin. She reports that about 6 month ago, she started buying cocaine from a new drug dealer that she believes may have laced her cocaine. She now admits that these lesions on her skin have been occurring for approximately 6 months. She reports the lesions were very itchy and continued to scratch all over causing her lesions to bleed. Patient used to follow up with a psychiatrist for her bipolar depression but stopped taking all of her medications and began to again use cocaine. She was seen at [facility] in 2014 and was prescribed medication for her bipolar depression. States that these medications helped her but she stopped taking them and began using cocaine. She feels that if she starts taking these medications to help her depression, she will refrain from cocaine. ID: Generalized skin lesions-open ulcerations/MRSA/Vasculitis/largest lesion on her head and her back. Lesions likely secondary to laced cocaine. Wound culture consistent with MRSA. Taper her off prednisone, On Prednisone, Benadryl and Doxycycli Will continue to taper her off Prednisone. As per ID, patient will need 3 weeks of Doxycycline PO. During hospitalization, she was seen by dermatology who advised to keep lesions clean with application of Bactroban cream Mepitel wound care to be applied to larger legions. Psyche Bipolar Disorder has been off her medications for some time, then relapsed. willing to go to rehab for substance abuse. Will restart her on Trazadone, Abilify and Sertraline. Electrolytes: Hyponatremia, resolved fen encourage PO intake monitor electrolytes low salt diet swetha SCDs full code Date of Admission:12/08/17 Date of Discharge: 12/23/17 Minutes to complete discharge: 60 Discharge Summary Reason For Visit: INFECTED SKIN LESION Current Active Problems Blisters of multiple sites (Acute) Skin lesion, infected (Acute) Wound infection (Acute) Condition: Improved - Instructions Diet, Activity, Other Instructions: You will be discharged home today. You can follow up at [facility] for rehab as an outpatient. We will make an appointment for you so that you can come to the wound clinic to continue wound care. Your appointment is for this at 10:00 a.m. ( December 29). Please continue to keep the wounds clean and apply Bactroban. It has been called into your pharmacy. Wound care: Wash your wounds and pat dry. apply Bactroban on your wounds ad keep the largest wound on your head covered. These wounds will take weeks to months for them to heal. Please follow up with Dr. Moreno (dermatology), by making an appointment with her directly. new medications Doxycycline 100mg twice per day at 8am and 8pm for 3 MORE WEEKS Abilify 10mg at bedtime Prednisone 40mg take daily for 3 more days Seroquel 100mg take at bedtime Desyrel 100mg at bedtime. Disposition: HOME - Home Medications Comprehensive Discharge Medication List: Ambulatory Orders Acamprosate Calcium [Campral -] 666 mg PO TID #120 tablet. 08/27/13 Sertraline HCl [Zoloft -] 150 mg PO DAILY #30 tablet 08/27/13 Quetiapine Fumarate [Seroquel -] 200 mg PO HS 12/12/17 Acamprosate Calcium [Campral -] 666 mg PO TID tablet. 12/23/17 Aripiprazole [Abilify -] 10 mg PO HS #30 tablet 12/23/17 Ascorbic Acid [Vitamin C -] 500 mg PO DAILY tablet 12/23/17 Diphenhydramine HCl [Benadryl Capsule -] 25 mg PO Q6H PRN capsule 12/23/17 Doxycycline Hyclate [Vibramycin -] 100 mg PO BID@1000,1800 #45 capsule 12/23/17 Mupirocin Cream [Bactroban 2% Cream -] 1 applic TP BID #2 tube 12/23/17 Quetiapine Fumarate [Seroquel -] 100 mg PO HS #30 tablet 12/23/17 predniSONE [Deltasone -] 40 mg PO DAILY #6 tablet 12/23/17 traZODone HCL [Desyrel -] 100 mg PO HS #60 tablet 12/23/17 This patient is new to me today: Yes Date on this admission: 12/23/17 Emergency Visit: Yes ED Registration Date: 12/08/17 Care time: The patient presented to the Emergency Department on the above date and was hospitalized for further evaluation of their emergent condition. Critical Care patient: No - Discharge Referral Referred to [facility] No
--- NOTE | 2017-12-23 12:42 | PN ---
Progress Note, Physician History of Present Illness: doing well no issues rash looking much better - Current Medication List Current Medications: Active Medications Acamprosate (Campral -) 666 mg PO TID [facility] Last Admin: 12/23/17 06:15 Dose: 666 mg Acetaminophen (Tylenol -) 650 mg PO Q6H PRN PRN Reason: PAIN LEVEL 1 - 3 Last Admin: 12/23/17 11:15 Dose: 650 mg Aripiprazole (Abilify) 10 mg PO HS [facility] Last Admin: 12/22/17 22:06 Dose: Not Given Ascorbic Acid (Vitamin C -) 500 mg PO DAILY [facility] Last Admin: 12/23/17 11:15 Dose: 500 mg Bacitracin (Bacitracin -) 1 applic TP TID [facility] Last Admin: 12/23/17 06:32 Dose: Not Given Diphenhydramine HCl (Benadryl -) 25 mg PO Q6H PRN PRN Reason: FOR ITCHING Last Admin: 12/23/17 11:15 Dose: 25 mg Docusate Sodium (Colace -) 100 mg PO DAILY [facility] Last Admin: 12/23/17 11:15 Dose: 100 mg Doxycycline Hyclate (Vibramycin -) 100 mg PO BID@1000,1800 [facility] Last Admin: 12/23/17 11:17 Dose: 100 mg Sodium Chloride (Normal Saline -) 1,000 mls @ 75 mls/hr IV ASDIR [facility] Last Admin: 12/22/17 16:49 Dose: Not Given Multivitamins/Minerals/Vitamin C (Tab-A-Vit -) 1 tab PO DAILY [facility] Last Admin: 12/23/17 11:15 Dose: 1 tab Nicotine (Nicoderm Patch -) 14 mg TD DAILY [facility] Last Admin: 12/23/17 11:17 Dose: 14 mg Oxycodone HCl (Roxicodone -) 5 mg PO Q4H PRN PRN Reason: PAIN LEVEL 4 - 6 Last Admin: 12/22/17 13:12 Dose: 5 mg Oxycodone HCl (Roxicodone -) 10 mg PO Q6H PRN PRN Reason: PAIN LEVEL 7 - 10 Last Admin: 12/23/17 11:14 Dose: 10 mg Prednisone (Deltasone -) 50 mg PO DAILY [facility] Last Admin: 12/23/17 11:16 Dose: 50 mg Quetiapine Fumarate (Seroquel -) 100 mg PO DAILY [facility] Last Admin: 12/23/17 11:20 Dose: 100 mg Sertraline HCl (Zoloft -) 150 mg PO DAILY [facility] Last Admin: 12/23/17 11:16 Dose: 150 mg Trazodone HCl (Desyrel -) 100 mg PO HS [facility] Last Admin: 12/22/17 22:01 Dose: 100 mg - Objective Vital Signs: Vital Signs Temperature 98.4 F 12/23/17 06:00 Pulse Rate 93 H 12/23/17 06:00 Respiratory Rate 18 12/23/17 06:00 Blood Pressure 138/82 12/23/17 06:00 O2 Sat by Pulse Oximetry (%) 100 12/22/17 21:00 Constitutional: Yes: No Distress, Calm Cardiovascular: Yes: Regular Rate and Rhythm Respiratory: Yes: Regular, CTA Bilaterally Gastrointestinal: Yes: Normal Bowel Sounds, Soft Musculoskeletal: Yes: WNL Extremities: Yes: WNL Integumentary: Yes: Rash (improved a lot) Wound/Incision: Yes: Clean/Dry, Open to air Neurological: Yes: Alert, Oriented Psychiatric: Yes: Alert Labs: CBC, BMP 12/23/17 06:50 12/23/17 06:50 INR, PTT INR 1.26 (0.83-1.09) H 12/08/17 02:00 Assessment/Plan rash resolving drug abuse skin infection mrsa rash tobacco abuse nasla rash plan ct oral abx to give abx for another 3 weeks rest as per the team improving
[2017-12-23 14:05] VITALS: BP 140/80; PULSE 100
[2017-12-23 14:11] VITALS: TEMP 98.8
== END 2017-12-23 15:38 | disposition home or self-care (01) | DRG 812 ==
LOC: JER 19:41 → JERBED 12-08 02:03 → UNDOADMIN 12-08 02:40 → J6S 12-08 06:03
PROVIDERS: ADMIT Internal Medicine; ATTEND Nurse Practitioner Family
DX: T37.4X1A Poisoning by anthelminthics, accidental (unintentional), initial encounter (principal); Y92.89 Other specified places as the place of occurrence of the external cause; F17.210 Nicotine dependence, cigarettes, uncomplicated; F32.9 Major depressive disorder, single episode, unspecified; F14.20 Cocaine dependence, uncomplicated; L95.9 Vasculitis limited to the skin, unspecified; B95.62 Methicillin resistant Staphylococcus aureus infection as the cause of diseases classified elsewhere; L98.498 Non-pressure chronic ulcer of skin of other sites with other specified severity; L98.9 Disorder of the skin and subcutaneous tissue, unspecified; R23.8 Other skin changes; I96 Gangrene, not elsewhere classified; E87.1 Hypo-osmolality and hyponatremia
CPT/HCPCS: 36415; 80048; 80053; 80307; 81003; 83036; 83520; 83735; 84703; 85025; 85610; 85651; 85730; 86038; 86140; 86256; 86593; 86695; 87040; 87070; 87186; 87205; 99284-25; G0480; J7030

== ENCOUNTER 2017-12-29 12:08 | Emergency (ER) | payer OTHER ==
[2017-12-29 12:26] VITALS: BP 141/81; PULSE 92; TEMP 97.9; BMI 26.2
--- NOTE | 2017-12-29 12:41 | PDOC ---
Suture Removal/Wound Check HPI - History of Present Illness Chief Complaint: Pain Stated Complaint: PAIN Time Seen by Provider: 12/29/17 12:27 History Source: Yes: Patient Exam Limitations: Yes: No Limitations Treated at: [facility] - Previous ED Treatment Type of procedure performed on last visit: Yes: Skin Ulcer Dressing (pt recently discharged from hospital c/o lesions to her nares getting worse) Antibiotics Prescribed: Yes (doxy for 3 weeks) Past History - Past Medical History Allergies/Adverse Reactions: Allergies Allergy/AdvReac Type Severity Reaction Status Date / Time No Known Allergies Allergy Verified 12/07/17 19:49 Home Medications: Ambulatory Orders Acamprosate Calcium [Campral -] 666 mg PO TID #120 tablet. 08/27/13 Sertraline HCl [Zoloft -] 150 mg PO DAILY #30 tablet 08/27/13 Quetiapine Fumarate [Seroquel -] 200 mg PO HS 12/12/17 Aripiprazole [Abilify -] 10 mg PO HS #30 tablet 12/23/17 Ascorbic Acid [Vitamin C -] 500 mg PO DAILY tablet 12/23/17 Dextroamphetamine/Amphetamine [Adderall 5 mg Tablet] 5 mg PO DAILY #10 tablet MDD 1 12/23/17 Diphenhydramine HCl [Benadryl Capsule -] 25 mg PO Q6H PRN capsule 12/23/17 Doxycycline Hyclate [Vibramycin -] 100 mg PO BID@1000,1800 #45 capsule 12/23/17 traZODone HCL [Desyrel -] 100 mg PO HS #60 tablet 12/23/17 Quetiapine Fumarate [Seroquel] 100 mg PO DAILY #30 tablet 12/26/17 Trazodone HCl 150 mg PO DAILY #30 tablet 12/26/17 Mupirocin Calcium [Bactroban Nasal] 1 gm NS BID #1 oint...g. 12/29/17 Naproxen [Naprosyn -] 500 mg PO BID PRN #30 tablet 12/29/17 Anemia: No Asthma: No Cancer: No Cardiac Disorders: No CVA: No COPD: No CHF: No Dementia: No Diabetes: No GI Disorders: No Disorders: No HTN: No Hypercholesterolemia: No Kidney Stones: No Liver Disease: No Seizures: No Thyroid Disease: No - Reproductive History PID: No - Suicide/Smoking/Psychosocial Hx Smoking History: Never smoked Have you smoked in the past 12 months: Yes Number of Cigarettes Smoked Daily: 20 Cigars Per Day: 0 Information on smoking cessation initiated: No 'Breaking Loose' booklet given: 07/31/13 Hx Alcohol Use: No Drug/Substance Use Hx: No Substance Use Type: None Hx Substance Use Treatment: Yes (completed 10 months inpatient rehab ,relapsed last month) Suture Removal/Wound Check PE - Physical Exam Comments: 12/29/17 14:57 nares with bilateral crusted oozing scabs *Review of Systems - Review of Systems Able to Perform ROS?: Yes Integumentary: Yes: Symptoms Reported *Physical Exam - Vital Signs Last Vital Signs Temp Pulse Resp BP Pulse Ox 97.9 F 92 H 18 141/81 100 12/29/17 12:23 12/29/17 12:23 12/29/17 12:23 12/29/17 12:23 12/29/17 12:23 - Physical Exam General Appearance: Yes: Nourished, Appropriately Dressed HEENT: positive: EOMI, THERESA, TMs Normal, Pharynx Normal, Other (bilateral nares with crusted lesions honey crust lesions) Medical Decision Making - Medical Decision Making 12/29/17 14:57 cc: painful lesions to bilatreral nares pt denies any recent intranasal cocaine use, last use was one week ago pt denies fever states she has been applying bacitracin to the nose no relief pt currently on doxycyline for 3 weeks was not given mupirocin cream at discharge will prescribe mupirocin (Bactroban) ointment strict followup with ID and pt asking for [employer] referral , 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 *DC/Admit/Observation/Transfer Diagnosis at time of Disposition: Skin lesion, infected - Discharge Dispostion Disposition: HOME Condition at time of disposition: Good - Prescriptions Prescriptions: Mupirocin Calcium [Bactroban Nasal] 1 gm NS BID #1 oint...g. Naproxen [Naprosyn -] 500 mg PO BID PRN #30 tablet PRN Reason: Pain - Referrals Referrals: Milton Beal MD [Staff Physician] - Bry Madden MD [Staff Physician] - - Patient Instructions Additional Instructions: please apply the Bactroban ointment twice a day to the inside of both nostrils with a cotton applicator wash hands often follow with infectious disease and with the plastic parts fabricator trimmer continue your doxycycline as directed for 3 weeks as directed from your previous hospital discharge - Post Discharge Activity
== END 2017-12-29 12:44 | disposition home or self-care (01) ==
LOC: JERFT 12:08
DX: L08.89 Other specified local infections of the skin and subcutaneous tissue (principal)
CPT/HCPCS: 99281-25; G0463-25

== ENCOUNTER 2018-05-01 14:29 | Emergency (ER) | payer OTHER ==
[2018-05-01 14:41] VITALS: BP 142/67; PULSE 92; TEMP 97.4; BMI 33.4
[2018-05-01] MEDS ORDERED: IBUPROFEN 600 MG TABLET (FP) PO ONE ×2 (15:11→15:13)
[2018-05-01] MEDS ORDERED: CEPHALEXIN MONOHYDRATE 500 MG CAPSULE (UD) ONE (15:12)
[2018-05-01] MEDS ORDERED: predniSONE 20 MG TABLET (UD) ONE (15:12)
[2018-05-01] MEDS ORDERED: predniSONE 20 MG TABLET (UD) PO ONE (15:13)
[2018-05-01] MEDS ORDERED: CEPHALEXIN MONOHYDRATE 500 MG CAPSULE (UD) PO ONE (15:13)
--- NOTE | 2018-05-01 15:13 | PDOC ---
History of Present Illness - General Chief Complaint: Cold Symptoms Stated Complaint: HEADACHE Time Seen by Provider: 05/01/18 14:55 History Source: Patient Exam Limitations: No Limitations - History of Present Illness Initial Comments: 05/01/18 15:22 Patient came to emergency department for evaluation of worsening skin condition called pemphigoid [place]. Was diagnosed [place] of this past year and given multiple courses of steroids with some resolution. Patient said had another outbreak/re-exacerbation a few days ago and does not have any more steroids/prednisone. Denies fever, denies purulent or or pus drainage, has not followed back up with [facility] where she was diagnosed previously Timing/Duration: reports: changing over time, getting worse Severity: reports: mild, moderate Past History - Travel Traveled outside of the country in the last 30 days: No Close contact w/someone who was outside of country & ill: No - Past Medical History Allergies/Adverse Reactions: Allergies Allergy/AdvReac Type Severity Reaction Status Date / Time No Known Allergies Allergy Verified 12/07/17 19:49 Home Medications: Ambulatory Orders Sertraline HCl [Zoloft -] 150 mg PO DAILY #30 tablet 08/27/13 Quetiapine Fumarate [Seroquel -] 200 mg PO HS 12/12/17 Ascorbic Acid [Vitamin C -] 500 mg PO DAILY tablet 12/23/17 Dextroamphetamine/Amphetamine [Adderall 5 mg Tablet] 5 mg PO DAILY #10 tablet MDD 1 12/23/17 Cephalexin Monohydrate [Keflex -] 500 mg PO Q8H #21 capsule 05/01/18 predniSONE [Deltasone -] 20 mg PO BID #8 tablet 05/01/18 Anemia: No Asthma: No Cancer: No Cardiac Disorders: No CVA: No COPD: No CHF: No Dementia: No Diabetes: No GI Disorders: No Disorders: No HTN: No Hypercholesterolemia: No Kidney Stones: No Liver Disease: No Seizures: No Thyroid Disease: No Other medical history: AUTO IMMUNE DISEASE - Reproductive History PID: No - Immunization History Immunization Up to Date: No - Suicide/Smoking/Psychosocial Hx Smoking History: Current every day smoker Have you smoked in the past 12 months: No Number of Cigarettes Smoked Daily: 20 Cigars Per Day: 0 Information on smoking cessation initiated: No 'Breaking Loose' booklet given: 04/28/18 Hx Alcohol Use: No Drug/Substance Use Hx: No Substance Use Type: None Hx Substance Use Treatment: Yes (completed 10 months inpatient rehab ,relapsed last month) Respiratory Specific PMHX - Complaint Specific PMHX TB (Tuberculosis): No Review of Systems - Review of Systems Able to Perform ROS?: Yes Is the patient limited Belarusian proficient: Yes Constitutional: Yes: Symptoms Reported, See HPI, Malaise. No: Chills, Fever HEENTM: Yes: See HPI. No: Symptoms Reported Respiratory: Yes: See HPI. No: Symptoms reported Integumentary: Yes: Symptoms Reported, See HPI, Dryness, Erythema, Lesions, Rash All Other Systems: Reviewed and Negative *Physical Exam - Vital Signs Last Vital Signs Temp Pulse Resp BP Pulse Ox 97.4 F L 92 H 16 142/67 98 05/01/18 14:34 05/01/18 14:34 05/01/18 14:34 05/01/18 14:34 05/01/18 14:34 - Physical Exam General Appearance: Yes: Nourished, Appropriately Dressed, Apparent Distress, Mild Distress HEENT: positive: THERESA, Normal ENT Inspection, TMs Normal, Pharynx Normal Neck: positive: Supple. negative: Tender, Lymphadenopathy (R), Lymphadenopathy (L) Respiratory/Chest: positive: Lungs Clear Musculoskeletal: positive: Normal Inspection Extremity: positive: Normal Capillary Refill Integumentary: positive: Dry, Warm, Rash, Other (patient with multiple areas of well-healed scarring and discolorations from pemphigoid lesions healed. Scalp has multiple keratinized and scaling lesions with loss of hair and open wound with fissure to crown of head. Nonfluctuant, no purulent drainage noted, is mildly tender. Has a few of same type lesions to inferior aspect of scalp and neck.). negative: Normal Color Neurologic: positive: special police II-XII NML intact, Fully Oriented, Alert, Normal Mood/ Affect, Normal Response, Motor Strength 5/5 Moderate Sedation - Procedure Monitoring Vital Signs: Procedure Monitoring Vital Signs Temperature 97.4 F L 05/01/18 14:34 Pulse Rate 92 H 05/01/18 14:34 Respiratory Rate 16 05/01/18 14:34 Blood Pressure 142/67 05/01/18 14:34 O2 Sat by Pulse Oximetry (%) 98 05/01/18 14:34 Progress Note - Progress Note Progress Note: Recurrence/continuation of pemphigoid felt varus. Patient states was treated at [facility] but has "run out of her prednisone". We'll give another course of 5 days, and also treat superficial cellulitis with Keflex. Encouraged patient to follow back up with dermatology clinic at [facility] *DC/Admit/Observation/Transfer Diagnosis at time of Disposition: Hx of pemphigoid - Discharge Dispostion Disposition: HOME Condition at time of disposition: Stable Decision to Admit order: No - Referrals - Patient Instructions Printed Discharge Instructions: Pemphigus Additional Instructions: Avoid scratching or picking at scars on head May use moisturizing lotions/bacitracin to areas Prednisone 40 mg daily for the next 5 days Keflex tablet 500 mg 3 times a day Follow-up at [facility]/dermatology clinic for further treatment and ongoing evaluation - Post Discharge Activity
== END 2018-05-01 15:28 | disposition home or self-care (01) ==
LOC: JERFT 14:29
DX: L12.8 Other pemphigoid (principal); Z87.2 Personal history of diseases of the skin and subcutaneous tissue
CPT/HCPCS: 99281-25

== ENCOUNTER 2018-09-10 05:33 | Emergency (ER) | payer SELFPAY ==
[2018-09-10 05:50] VITALS: TEMP 98.3; BMI 29.2
--- NOTE | 2018-09-10 08:05 | PDOC ---
History of Present Illness - General Chief Complaint: Injury Stated Complaint: FALL Time Seen by Provider: 09/10/18 07:31 History Source: Patient - History of Present Illness Initial Comments: 09/10/18 08:21 Source: Pt, tearful, odd affect, intermittently gives inappropriate responses to questions, redirectable. 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 Pt was on the toilet this AM, attempted to stand up and fell, hitting the bathroom sink with her face. Reports LOC. Endorses "numbness all over," specifically the arms, and pain all over her face / neck. Denies incontinence, intoxication (no etoh / illicits). 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 She ran out of her 20mg daily prednisone one week ago and subsequently developed a flare involving the mucus membranes in her nose / mouth. Reports pain is also 2/ 2 the autoimmune disease with lesions appearing in her nose / mouth last night. 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, no managing physician at this time PSH: None Meds: Prednisone 20mg (off for past week) Seroquel 300mg qHS Zoloft 100mg daily Adderall 30mg daily Allergies: Doxycycline - Cid Tylenol - Cid FHx: Denies SHx: 1PPD smoker, denies etoh or illicits Past History - Past Medical History Allergies/Adverse Reactions: Allergies Allergy/AdvReac Type Severity Reaction Status Date / Time acetaminophen [From Tylenol] Allergy Unknown Verified 09/10/18 05:50 doxycycline Allergy Unknown Verified 09/10/18 05:50 Home Medications: Ambulatory Orders Sertraline HCl [Zoloft -] 150 mg PO DAILY #30 tablet 08/27/13 Quetiapine Fumarate [Seroquel -] 200 mg PO HS 12/12/17 Ascorbic Acid [Vitamin C -] 500 mg PO DAILY tablet 12/23/17 Dextroamphetamine/Amphetamine [Adderall 5 mg Tablet] 5 mg PO DAILY #10 tablet MDD 1 12/23/17 predniSONE [Deltasone -] 20 mg PO BID #8 tablet 05/01/18 Ibuprofen [Motrin -] 600 mg PO TID PRN #21 tablet 09/10/18 predniSONE [Deltasone -] 20 mg PO DAILY #30 tablet 09/10/18 Anemia: No Asthma: No Cancer: No Cardiac Disorders: No CVA: No COPD: No CHF: No Dementia: No Diabetes: No GI Disorders: No Disorders: No HTN: No Hypercholesterolemia: No Kidney Stones: No Liver Disease: No Seizures: No Thyroid Disease: No Comment:: 09/10/18 08:41 see note - Surgical History Comments:: 09/10/18 08:41 see note - Reproductive History LMP comment: August 30, 2018 PID: No - Immunization History Immunization Up to Date: No - Suicide/Smoking/Psychosocial Hx Smoking History: Current every day smoker Have you smoked in the past 12 months: No Number of Cigarettes Smoked Daily: 20 Cigars Per Day: 0 Information on smoking cessation initiated: Yes 'Breaking Loose' booklet given: 04/28/18 Hx Alcohol Use: Yes Drug/Substance Use Hx: No Substance Use Type: None Hx Substance Use Treatment: Yes (completed 10 months inpatient rehab ,relapsed last month) Review of Systems - Review of Systems Able to Perform ROS?: Yes Is the patient limited Wolof proficient: No Constitutional: Yes: Weakness. No: Chills, Fever HEENTM: Yes: Nose Pain, Mouth Pain Respiratory: No: Symptoms reported Cardiac (ROS): No: Symptoms Reported ABD/GI: No: Symptoms Reported : No: Symptoms Reported Musculoskeletal: Yes: Muscle Weakness, Neck Pain Integumentary: No: Symptoms Reported Neurological: Yes: Numbness (b/l arms), Weakness ("all over"). No: Headache, Seizure All Other Systems: Reviewed and Negative *Physical Exam - Vital Signs Last Vital Signs Temp Pulse Resp BP Pulse Ox 98.3 F 96 H 20 104/87 100 09/10/18 05:44 09/10/18 05:44 09/10/18 05:44 09/10/18 05:44 09/10/18 05:44 - Physical Exam Comments: 09/10/18 08:46 Gen:KATHIWN, appears stated age HEENT: Face: bony tenderness bilaterally, more-so on the right side, abrasion on right upper lip, swollen. Nose: erythematous, with mucus membrane lesions Mouth: no sign of dental tauma, no tongue lacerations, no internal sores / ulcerations evident Eyes: small, equal, reactive CV: regular rate and rhythm, no adventitious heart sounds Pulm: normal WOB, good air entry, no wheezes / rales / rhonchi Abd: soft, non-tender, non-distended Skin: Dark scars on back, reported from autoimmune dx., warm, dry Neuro: MCINTYRE, 5+ supervisor chlorine liquefaction / UE and LE, sensation intact on UE/LE MSE: Alert and Oriented x3, odd affect, tearful Pulses: 2+ radial and DP General Appearance: Yes: Disheveled, Alcohol on Breath HEENT: positive: EOMI, THERESA, Symmetrical, Sinus Tenderness Neck: positive: Tender Respiratory/Chest: positive: Lungs Clear, Normal Breath Sounds. negative: Chest Tender Cardiovascular: positive: Regular Rhythm, Regular Rate Gastrointestinal/Abdominal: positive: Soft. negative: Tender Extremity: positive: Normal Capillary Refill ED Treatment Course - LABORATORY CBC & Chemistry Diagram: 09/10/18 09:00 09/10/18 08:09 Medical Decision Making - Medical Decision Making 09/10/18 08:55 38yo woman with pmh Pemphigus vulgaris presenting with pain s/p syncope with facial trauma this morning. Pt not on blood thinners, no nausea/ vomiting / headache. Exam notable for facial and left neck tenderness, mucus membrane lesions on face / nose, alcohol on breath, pupils symmetric without any focal neurologic deficits. Vital signs stable. R/o cardiac and neurogenic causes of syncope, NCHCT to assess trauma and r/o bleed, assess for intoxication. - CBC - CMP - Troponin - U Preg - UA - UTox - Salicylates - Acetaminophen - Alcohol level - EKG - CT Spine, Head, and Facial Bones; noncon 09/10/18 09:17 Utox positive for cocaine, marijuana, and opiates. 09/10/18 12:[address] scans negative. No PCP, provided referral and prednisone / motrin scripts. Return precautions discussed with patient; verbalized understanding. *DC/Admit/Observation/Transfer Diagnosis at time of Disposition: Multiple contusions - Discharge Dispostion Disposition: HOME Condition at time of disposition: Stable Decision to Admit order: No - Prescriptions Prescriptions: Ibuprofen [Motrin -] 600 mg PO TID PRN #21 tablet PRN Reason: Pain predniSONE [Deltasone -] 20 mg PO DAILY #30 tablet - Referrals Referrals: [facility] [place] [Provider Group] Rosanna Blackwell FNP [Primary Care Provider] - - Patient Instructions Printed Discharge Instructions: DI for Contusion Additional Instructions: Please follow up with your primary care doctor in 1-2 days. Please return to the ER if you develop any worsening swelling, numbness, tingling, worsening headache or changes in vision. - Post Discharge Activity
--- NOTE | 2018-09-10 08:10 | PDOC ---
Attending Attestation - Resident Resident Name: Sammy Kilgore - ED Attending Attestation I have performed the following: I have examined & evaluated the patient, The case was reviewed & discussed with the resident, I agree w/resident's findings & plan, Exceptions are as noted - HPI HPI: 38 yo F history pemphigus vulgaris (not currently on her prednisone, she ran out and does not have insurance or a primary care) presents s/p syncopal event this morning. She states she woke up to urinate, as she stood up she became lightheaded, felt her vision quinn out, then passed out, hitting the bathroom sink as she fell. She bit her lip as she fell. She recovered quickly. Denies recent drug or alcohol intake. She c/o facial pain, neck pain. - Physicial Exam PE: GENERAL: Awake, alert, and fully oriented, in no acute distress. +AOB HEAD: No signs of trauma EYES: PERRLA, EOMI, sclera anicteric, conjunctiva clear ENT: Auricles normal inspection, hearing grossly normal, nares patent, oropharynx clear without exudates. Moist mucosa. +Small puncture araujo to upper and lower lips, with localized tenderness, no erythema NECK: Normal ROM, supple, no lymphadenopathy, JVD, or masses LUNGS: Breath sounds equal, clear to auscultation bilaterally. No wheezes, and no crackles HEART: Regular rate and rhythm, normal S1 and S2, no murmurs, rubs or gallops ABDOMEN: Soft, nontender, normoactive bowel sounds. No guarding, no rebound. No masses EXTREMITIES: Normal range of motion, no edema. No clubbing or cyanosis. No cords, erythema, or tenderness NEUROLOGICAL: Cranial nerves II through XII grossly intact. Normal speech, normal gait. Motor and sensation intact SKIN: Warm, dry, normal turgor, no rashes or lesions noted. - Medical Decision Making 09/10/18 08:49 Pt with facial pain and swelling s/p syncopal event. +AOB, will check alcohol level. Will check troponin and UCG as well. CT facial, head, and c-spine ( especially since she was on chronic steroids).
[2018-09-10] MEDS ORDERED: morphine CARPU-JECT 4 MG/1 ML DISP.SYRIN IVPUSH ONE (08:19)
[2018-09-10] MEDS ORDERED: MORPHINE SULFATE 2 MG/ML VIAL ONE (08:44)
[2018-09-10] MEDS ORDERED: SODIUM CHLORIDE 1,000 ML IV STA (09:28)
[2018-09-10 09:38] LABS: ALBUMIN 3.3 g/dl (3.4-5.0); ANION GAP 5 MMOL/L (8-16); BILIRUBIN,TOTAL 0.2 mg/dL (0.2-1); BLOOD UREA NITROGEN 7.5 mg/dL (7-18); CALCIUM 8.7 mg/dL (8.5-10.1); CHLORIDE 106 mmol/L (98-107); CO2 27 mmol/L (21-32); CREATININE 0.9 mg/dL (0.55-1.3); GLUCOSE,RANDOM 101 mg/dL (74-106); SODIUM 138 mmol/L (136-145)
[2018-09-10 09:39] LABS: ALK PHOS 67 U/L (45-117); SGOT/AST 16 U/L (15-37); SGPT/ALT 23 U/L (13-61)
[2018-09-10 09:48] LABS: BASO % 0.9 % (0-2.0); EOS % 9.8 % (0-4.5); HEMATOCRIT 40.8 % (32.4-45.2); HEMOGLOBIN 12.6 GM/dL (10.7-15.3); LYMPH % 24.5 % (8-40); MCH 22.2 pg (25.7-33.7); MCHC 30.8 g/dl (32.0-36.0); MEAN PLT VOLUME 8.6 fl (7.5-11.1); MONO % 9.5 % (3.8-10.2); NEUT % 55.3 % (42.8-82.8); RBC 5.68 M/mm3 (3.60-5.2); RDW 15.8 % (11.6-15.6); WHITE BLOOD COUNT 9.3 K/mm3 (4.0-10.0)
[2018-09-10 10:02] LABS: PLATELET COUNT 313 K/MM3 (134-434)
[2018-09-10 10:27] LABS: EPI CELLS 2.7 /HPF (0-5/HPF); HYALINE CASTS 1 /lpf (0-8); PH,URINE 5.5 (5.0-8.0); URINE APPEARANCE CLEAR; URINE BACTERIA 27.1 /hpf (NEGATIVE); URINE BILIRUBIN NEGATIVE (NEGATIVE); URINE COLOR YELLOW; URINE GLUCOSE (UA) NEGATIVE (NEGATIVE); URINE KETONE NEGATIVE (NEGATIVE); URINE LEUK ESTERASE TRACE (NEGATIVE); URINE NITRITE NEGATIVE (NEGATIVE); URINE PROTEIN NEGATIVE (NEGATIVE); URINE RBC 9 /hpf (0-4); URINE UROBILINOGEN 0.2 mg/dL (0.2-1.0); URINE WBC 6 /hpf (0-5)
[2018-09-10 10:38] LABS: HCG,QUALITATIVE URINE NEGATIVE
[2018-09-10 11:21] LABS: METHADONE, UR NEGATIVE ng/ml (CUTOFF=300); PHENCYCLIDINE,URINE NEGATIVE ng/ml (CUTOFF=25); URINE AMPHETAMINES NEGATIVE ng/ml (CUTOFF=500); URINE BARBITURATES NEGATIVE ng/ml (CUTOFF=200); URINE BENZODIAZEPINES NEGATIVE ng/ml (CUTOFF=200)
[2018-09-10 12:08] LABS: COCAINE, UR POSITIVE ng/ml (CUTOFF=300); OPIATES, URI POSITIVE ng/ml (CUTOFF=300)
[2018-09-10] MEDS ORDERED: KETOROLAC TROMETHAMINE 30 MG/1 ML VIAL IVPUSH ONE (12:17)
[2018-09-10] MEDS ORDERED: KETOROLAC TROMETHAMINE 30 MG/1 ML VIAL ONE (12:24)
--- NOTE | 2018-09-10 13:00 | EKG ---
Test Reason : Blood Pressure : / mmHG Vent. Rate : 068 BPM Atrial Rate : 068 BPM P-R Int : 174 ms QRS Dur : 074 ms QT Int : 424 ms P-R-T Axes : -09 006 -06 degrees QTc Int : 450 ms NORMAL SINUS RHYTHM MINIMAL VOLTAGE CRITERIA FOR LVH, MAY BE NORMAL VARIANT NONSPECIFIC T WAVE ABNORMALITY ABNORMAL ECG NO PREVIOUS ECGS AVAILABLE Confirmed by MD ASHLEY, SHILO ([id number]) on 09/10/2018 1:00:30 PM Referred By: Confirmed By:SHILO RAMIREZ MD
[2018-09-10 13:34] VITALS: BP 112/81; PULSE 82
== END 2018-09-10 13:34 | disposition home or self-care (01) ==
LOC: JER 05:33
PROC: 3E0333Z Introduction of Anti-inflammatory into Peripheral Vein, Percutaneous Approach (ICD-10-PCS; principal; 2018-09-10)
PROC: 3E033NZ Introduction of Analgesics, Hypnotics, Sedatives into Peripheral Vein, Percutaneous Approach (ICD-10-PCS; 2018-09-10)
PROC: 3E0337Z Introduction of Electrolytic and Water Balance Substance into Peripheral Vein, Percutaneous Approach (ICD-10-PCS; 2018-09-10)
DX: T14.8XXA Other injury of unspecified body region, initial encounter (principal); W18.39XA Other fall on same level, initial encounter; Y93.89 Activity, other specified; Y92.002 Bathroom of unspecified non-institutional (private) residence as the place of occurrence of the external cause; L10.0 Pemphigus vulgaris
CPT/HCPCS: 36415; 70450-TC; 70486-TC; 72125-TC; 80053; 80307; 81003; 84484; 84703; 85025; 93005; 93010; 96361; 96374; 96375; 99282-25; J7030

== ENCOUNTER 2018-10-01 03:33 | Emergency (ER) | payer SELFPAY ==
--- NOTE | 2018-10-01 03:38 | PDOC ---
Medical Decision Making - Medical Decision Making 10/01/18 03:41 Patient seen and evaluated as pre-attending w/Dr. Raymundo (PGY-1) 38 y/o female with epistaxis s/p cocaine use. VS PE shows perforated nasal septum - tissue suggests non-acute septal perforation Patient amenable to Detox 10/01/18 03:48 Will give IV hydration 10/01/18 04:01 [facility] has available female detox bed; s/p IV hydration will discharge *DC/Admit/Observation/Transfer Diagnosis at time of Disposition: Nasal septal perforation - Discharge Dispostion Disposition: ASSISTED FACILITY Condition at time of disposition: Fair Decision to Admit order: No - Referrals - Patient Instructions - Post Discharge Activity
--- NOTE | 2018-10-01 03:47 | PDOC ---
Attending Attestation - Resident Resident Name: BreanneJakob - ED Attending Attestation I have performed the following: I have examined & evaluated the patient, The case was reviewed & discussed with the resident, I agree w/resident's findings & plan - HPI HPI: 10/01/18 03:59 Pt is a cocaine abuser and alcohol abuser. She thinks she took some bad shit today. New cocaine dealPter. Feels tachycardic. No chest pain however. 10/01/18 03:59 Pt agrees to go to detox after we treat her. - Physicial Exam PE: 10/01/18 04:00 Agree with resident exam. Pt has old pemphigus scars. Nose she has erosion of her septum. She hasno fever and no chills. She has clear lungs. She is slightly tachycardic, No abd pain and no flank pain. Extremities are not swollen. Her neuro exam is normal. - Medical Decision Making 10/01/18 04:01 Pt will get hydration and some ofirmev for her nose "burning sensation" There are female detox beds at [facility]. She will be sent there with our security guards. 10/01/18 04:25 Pt tells us that she is allergic to tylenol, so we are giving toradol 15mg instead of ofirmev.
[2018-10-01] MEDS ORDERED: SODIUM CHLORIDE 0.9% 500 ML INFUS.BAG IV ONE (03:53)
[2018-10-01] MEDS ORDERED: ACETAMINOPHEN 1000 MG/100 ML VIAL (NON FORMULARY) IVPB ONE (03:53)
[2018-10-01 04:09] VITALS: BP 115/74; PULSE 122; TEMP 98.1; BMI 31.4
[2018-10-01] MEDS ORDERED: ACETAMINOPHEN INJECTION 100 ML IVPB ONE (04:10)
--- NOTE | 2018-10-01 04:11 | PDOC ---
History of Present Illness - General Chief Complaint: Nasal Bleeding Stated Complaint: NOSE BLEED Time Seen by Provider: 10/01/18 03:43 Past History - Past Medical History Allergies/Adverse Reactions: Allergies Allergy/AdvReac Type Severity Reaction Status Date / Time acetaminophen [From Tylenol] Allergy Unknown Verified 09/10/18 05:50 doxycycline Allergy Unknown Verified 09/10/18 05:50 Home Medications: Ambulatory Orders Sertraline HCl [Zoloft -] 150 mg PO DAILY #30 tablet 08/27/13 Quetiapine Fumarate [Seroquel -] 200 mg PO HS 12/12/17 Ascorbic Acid [Vitamin C -] 500 mg PO DAILY tablet 12/23/17 Dextroamphetamine/Amphetamine [Adderall 5 mg Tablet] 5 mg PO DAILY #10 tablet MDD 1 12/23/17 predniSONE [Deltasone -] 20 mg PO BID #8 tablet 05/01/18 Ibuprofen [Motrin -] 600 mg PO TID PRN #21 tablet 09/10/18 predniSONE [Deltasone -] 20 mg PO DAILY #30 tablet 09/10/18 Anemia: No Asthma: No Cancer: No Cardiac Disorders: No CVA: No COPD: No CHF: No Dementia: No Diabetes: No GI Disorders: No Disorders: No HTN: No Hypercholesterolemia: No Kidney Stones: No Liver Disease: No Seizures: No Thyroid Disease: No - Reproductive History PID: No - Immunization History Immunization Up to Date: No - Suicide/Smoking/Psychosocial Hx Smoking History: Current every day smoker Have you smoked in the past 12 months: Yes Number of Cigarettes Smoked Daily: 20 Cigars Per Day: 0 Information on smoking cessation initiated: Yes 'Breaking Loose' booklet given: 04/28/18 Hx Alcohol Use: Yes Drug/Substance Use Hx: Yes Substance Use Type: None Hx Substance Use Treatment: Yes (completed 10 months inpatient rehab ,relapsed last month) *Physical Exam - Vital Signs Last Vital Signs Temp Pulse Resp BP Pulse Ox 98.1 F 122 H 18 115/74 96 10/01/18 04:00 10/01/18 04:00 10/01/18 04:00 10/01/18 04:00 10/01/18 04:00 *DC/Admit/Observation/Transfer Diagnosis at time of Disposition: Nasal septal perforation - Discharge Dispostion Disposition: GROUP HOME FACILITY Condition at time of disposition: Fair - Referrals - Patient Instructions - Post Discharge Activity
[2018-10-01] MEDS ORDERED: KETOROLAC TROMETHAMINE 15 MG/ML VIAL IVPUSH ONE (04:25)
[2018-10-01] MEDS ORDERED: KETOROLAC TROMETHAMINE 15 MG/ML VIAL ONE (04:28)
== END 2018-10-01 04:44 | disposition other institution (70) ==
LOC: JER 03:33
PROC: 3E033NZ Introduction of Analgesics, Hypnotics, Sedatives into Peripheral Vein, Percutaneous Approach (ICD-10-PCS; principal; 2018-10-01)
PROC: 3E0333Z Introduction of Anti-inflammatory into Peripheral Vein, Percutaneous Approach (ICD-10-PCS; 2018-10-01)
PROC: 3E0337Z Introduction of Electrolytic and Water Balance Substance into Peripheral Vein, Percutaneous Approach (ICD-10-PCS; 2018-10-01)
DX: J34.89 Other specified disorders of nose and nasal sinuses (principal); F14.10 Cocaine abuse, uncomplicated; F10.10 Alcohol abuse, uncomplicated
CPT/HCPCS: 99281-25; J0131

== ENCOUNTER 2018-10-01 05:00 | Inpatient (IN) | payer SELFPAY | END 2018-10-01 08:46 | disposition left against medical advice (07) | LOC: YASAS 05:00 → Y3N 05:46 ==

== ENCOUNTER 2018-11-18 08:08 | Emergency (ER) | payer OTHER ==
[2018-11-18 08:18] VITALS: BMI 29.2
--- NOTE | 2018-11-18 08:32 | PDOC ---
History of Present Illness - General Chief Complaint: Pain Stated Complaint: PAIN Time Seen by Provider: 11/18/18 08:18 - History of Present Illness Initial Comments: 11/18/18 08:32 Note: Patient was initially triaged to [facility]. After review of the history of present illness and physical examination by Nurse Practitioner, the patient was transfered to the main ED for higher lever of care. The patient is medically stable for transfer, ED attending and charge nurse/main ED nursing staff aware. Patient with hx of pemphigus vulgaris and cocaine abuse presents initially presented to [facility] with flare-up of pemphigus vulgaris. Patient states she "is having a flare up" after running out of prednisone last week, which was prescribed by her resp ther in the [place] two weeks ago. She complains of severe pain to her tongue and to the top of her head. Physical exam reveals blisters to her tongue and area of erosion to scalp. Labs, IV, methylpred, viscous lidocaine ordered. Patient transferred to main ED for further workup and monitoring of wound to head. 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 Past History - Past Medical History Allergies/Adverse Reactions: Allergies Allergy/AdvReac Type Severity Reaction Status Date / Time acetaminophen [From Tylenol] Allergy Unknown Verified 11/18/18 08:18 doxycycline Allergy Unknown Verified 11/18/18 08:18 Home Medications: Ambulatory Orders Sertraline HCl [Zoloft -] 150 mg PO DAILY #30 tablet 08/27/13 Quetiapine Fumarate [Seroquel -] 200 mg PO HS 12/12/17 Ascorbic Acid [Vitamin C -] 500 mg PO DAILY tablet 12/23/17 Dextroamphetamine/Amphetamine [Adderall 5 mg Tablet] 5 mg PO DAILY #10 tablet MDD 1 12/23/17 predniSONE [Deltasone -] 20 mg PO BID #8 tablet 05/01/18 Ibuprofen [Motrin -] 600 mg PO TID PRN #21 tablet 09/10/18 predniSONE [Deltasone -] 20 mg PO DAILY #30 tablet 09/10/18 Anemia: No Asthma: No Cancer: No Cardiac Disorders: No CVA: No COPD: No CHF: No Dementia: No Diabetes: No GI Disorders: No Disorders: No HTN: No Hypercholesterolemia: No Kidney Stones: No Liver Disease: No Seizures: No Thyroid Disease: No - Reproductive History PID: No - Immunization History Immunization Up to Date: No - Suicide/Smoking/Psychosocial Hx Smoking History: Current every day smoker Have you smoked in the past 12 months: Yes Number of Cigarettes Smoked Daily: 20 Cigars Per Day: 0 Information on smoking cessation initiated: No 'Breaking Loose' booklet given: 10/01/18 Hx Alcohol Use: Yes Drug/Substance Use Hx: Yes Substance Use Type: Cocaine, Marijuana Hx Substance Use Treatment: Yes ([facility] [place]) *Physical Exam - Vital Signs Last Vital Signs Temp Pulse Resp BP Pulse Ox 97.5 F L 94 H 18 113/81 99 11/18/18 08:15 11/18/18 08:15 11/18/18 08:15 11/18/18 08:15 11/18/18 08:15
[2018-11-18] MEDS ORDERED: methylPREDNISolone NA SUCC 125 MG/2 ML VIAL IVPB ONE (08:42)
[2018-11-18] MEDS ORDERED: LIDOCAINE VISCOUS 2% ORAL/TOP 20 ML UNIT-DOSE CUP MM ONE (08:46)
--- NOTE | 2018-11-18 08:51 | PDOC ---
*Physical Exam - Vital Signs Last Vital Signs Temp Pulse Resp BP Pulse Ox 97.5 F L 94 H 18 113/81 99 11/18/18 08:15 11/18/18 08:15 11/18/18 08:15 11/18/18 08:15 11/18/18 08:15 - Physical Exam General Appearance: Yes: Nourished, Appropriately Dressed, Mild Distress (d/t pain) HEENT: positive: EOMI, THERESA, Normal Voice, Other (lesions noted to the tongue and gums b/l) Neck: positive: Trachea midline, Supple. negative: Tender, Rigid, Lymphadenopathy (R), Lymphadenopathy (L) Respiratory/Chest: positive: Lungs Clear, Normal Breath Sounds. negative: Respiratory Distress, Accessory Muscle Use, Rhonchi, Stridor, Wheezing Cardiovascular: positive: Regular Rhythm, Regular Rate, S1, S2 (present). negative: Murmur Integumentary: positive: Warm, Other (0rut2ts oblong erosion wound to the top of the scalp with prurulent drainage. Lesions also present to the scalp) Neurologic: positive: Fully Oriented, Alert, Normal Mood/Affect, Normal Response ED Treatment Course - LABORATORY CBC & Chemistry Diagram: 11/18/18 09:07 11/18/18 09:07 Medical Decision Making - Medical Decision Making 11/18/18 08:50 Pt transferred from [facility] to [facility] Patient with hx of pemphigus vulgaris and cocaine abuse presents initially presented to [facility] with flare-up of pemphigus vulgaris. Patient states she "is having a flare up" after running out of prednisone last week, which was prescribed by her baker pie in the [place] two weeks ago. She complains of severe pain to her tongue and to the top of her head. She states that the head wound got worse over the past week. She has not taken prednisone for at least one week. Denies fevers, chills, n/v/d, headache, weakness and dizziness. ROS: CONSTITUTIONAL: Absent: fever, chills, diaphoresis, generalized weakness, malaise, loss of appetite HEENT: Absent: rhinorrhea, nasal congestion, throat pain, throat swelling, difficulty swallowing, mouth swelling, ear pain, eye pain, visual Changes CARDIOVASCULAR: Absent: chest pain, loss of consciousness, palpitations, irregular heart rate, peripheral edema RESPIRATORY: Absent: cough, shortness of breath, dyspnea with exertion, orthopnea, wheezing, stridor, hemoptysis GASTROINTESTINAL: Absent: abdominal pain, abdominal distension, nausea, vomiting, diarrhea, constipation, melena, hematochezia GENITOURINARY: Absent: dysuria, frequency, urgency, hesitancy, hematuria, flank pain, genital pain MUSCULOSKELETAL: Absent: myalgia, arthralgia, joint swelling SKIN: Present: lesions and scalp wound Absent: rash, itching, pallor HEMATOLOGIC/IMMUNOLOGIC: Absent: easy bleeding, easy bruising, lymphadenopathy, frequent infections ENDOCRINE: Absent: unexplained weight gain, unexplained weight loss, heat intolerance, cold intolerance NEUROLOGIC: Absent: headache, focal weakness or paresthesias, dizziness, unsteady gait, seizure, mental status changes, bladder or bowel incontinence PSYCHIATRIC: Absent: anxiety, depression, suicidal or homicidal ideation, hallucinations. A/P: skin infection d/t hc of pemphigus vulgaris On exam [id number] oblong erosion wound to the top of the scalp with prurulent drainage Multiple new pemhigoids to the scalp and tongue Labs, IV started, wound culture, urine culture, blood cultures taken IV abx for wound infection given as well as steroids, and toradol CT head with IV contrast ordered to evaluate for osteo HSV culture taken Re-evaluate 11/18/18 14:30 No leukocytosis Utox positive for cocaine and THC CT shows no evidence of osteo to the skull or abscesses at this time Complicated pemhigoid vulgaris Given depth, and severity of wound; will admit for IV abx, steroids No PCP [facility] paged. 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 Pt pending transfer *DC/Admit/Observation/Transfer Diagnosis at time of Disposition: Pemphigus vulgaris - Discharge Dispostion Disposition: TRANSFER ACUTE CARE/OTHER HOSP Condition at time of disposition: Stable - Referrals - Patient Instructions - Post Discharge Activity
[2018-11-18] MEDS ORDERED: KETOROLAC TROMETHAMINE 30 MG/1 ML VIAL IVPUSH ONE (08:54)
[2018-11-18] MEDS ORDERED: LIDOCAINE VISCOUS 2% ORAL/TOP 20 ML UNIT-DOSE CUP ONE (08:55)
[2018-11-18] MEDS ORDERED: methylPREDNISolone NA SUCC 125 MG/2 ML VIAL ONE (08:55)
[2018-11-18] MEDS ORDERED: KETOROLAC TROMETHAMINE 30 MG/1 ML VIAL ONE (08:58)
[2018-11-18] MEDS ORDERED: VANCOMYCIN 1,000 MG in DEXTROSE 5%-WATER - 250 ML IVPB ONE (09:01)
[2018-11-18] MEDS ORDERED: PIPERACILLIN/TAZOB 3.375 GM 3.375 GM in DEXTROSE 5%-WATER - 50 ML IVPB ONE (09:02)
[2018-11-18] MEDS ORDERED: VANCOMYCIN 1 GRAM (PRE-DOCKED) 1,000 MG/250 ML BAG IVPB ONE (09:24)
[2018-11-18] MEDS ORDERED: PIPERACILLIN/TAZOB 3.375 GM 3.375 GM/50 ML BAG IVPB ONE (09:25)
[2018-11-18 09:26] LABS: BASO % 1.1 % (0-2.0); EOS % 3.8 % (0-4.5); HEMATOCRIT 38.8 % (32.4-45.2); HEMOGLOBIN 12.5 GM/dL (10.7-15.3); LYMPH % 15.9 % (8-40); MCH 23.7 pg (25.7-33.7); MCHC 32.3 g/dl (32.0-36.0); MEAN CELL VOLUME 73.4 fl (80-96); MEAN PLT VOLUME 8.3 fl (7.5-11.1); MONO % 7.7 % (3.8-10.2); NEUT % 71.5 % (42.8-82.8); PLATELET COUNT 374 K/MM3 (134-434); RBC 5.29 M/mm3 (3.60-5.2); RDW 16.6 % (11.6-15.6); WHITE BLOOD COUNT 8.9 K/mm3 (4.0-10.0)
[2018-11-18 09:54] LABS: ALBUMIN 3.5 g/dl (3.4-5.0); BILIRUBIN,TOTAL 0.3 mg/dL (0.2-1); BLOOD UREA NITROGEN 6.9 mg/dL (7-18); CALCIUM 9.5 mg/dL (8.5-10.1); CREATININE 0.8 mg/dL (0.55-1.3); POTASSIUM 4.2 mmol/L (3.5-5.1); TOT PROT 7.2 g/dl (6.4-8.2)
[2018-11-18] MEDS ORDERED: SODIUM CHLORIDE 1,000 ML IV STA (10:31)
[2018-11-18] MEDS ORDERED: morphine CARPU-JECT 4 MG/1 ML DISP.SYRIN IVPUSH ONE ×2 (13:37→17:37)
[2018-11-18] MEDS ORDERED: morphine SULFATE 4 MG/ML VIAL ONE (13:44)
[2018-11-18 14:23] LABS: METHADONE, UR NEGATIVE ng/ml (CUTOFF=300); OPIATES, URI NEGATIVE ng/ml (CUTOFF=300); PHENCYCLIDINE,URINE NEGATIVE ng/ml (CUTOFF=25); URINE AMPHETAMINES NEGATIVE ng/ml (CUTOFF=500); URINE APPEARANCE CLEAR; URINE BARBITURATES NEGATIVE ng/ml (CUTOFF=200); URINE BENZODIAZEPINES NEGATIVE ng/ml (CUTOFF=200); URINE BILIRUBIN NEGATIVE (NEGATIVE); URINE COLOR YELLOW; URINE GLUCOSE (UA) NEGATIVE (NEGATIVE); URINE KETONE NEGATIVE (NEGATIVE); URINE LEUK ESTERASE NEGATIVE (NEGATIVE); URINE NITRITE NEGATIVE (NEGATIVE); URINE PROTEIN NEGATIVE (NEGATIVE); URINE UROBILINOGEN 0.2 mg/dL (0.2-1.0)
[2018-11-18 14:24] LABS: COCAINE, UR POSITIVE ng/ml (CUTOFF=300)
[2018-11-18 14:26] LABS: HCG,QUALITATIVE URINE Negative
--- NOTE | 2018-11-18 17:12 | PDOC ---
*Physical Exam - Vital Signs Last Vital Signs Temp Pulse Resp BP Pulse Ox 97.3 F L 66 18 128/76 98 11/18/18 15:19 11/18/18 15:19 11/18/18 15:19 11/18/18 15:19 11/18/18 15:19 ED Treatment Course - LABORATORY CBC & Chemistry Diagram: 11/18/18 09:07 11/18/18 09:07 - ADDITIONAL ORDERS Additional order review: Laboratory Results 11/18/18 11/18/18 11/18/18 14:00 14:00 09:37 Sodium Potassium Chloride Carbon Dioxide Anion Gap BUN Creatinine Est GFR (CKD-EPI)AfAm Est GFR (CKD-EPI)NonAf Random Glucose Calcium Total Bilirubin AST ALT Alkaline Phosphatase Total Protein Albumin Serum , Qual Negative Urine Color Yellow Urine Appearance Clear Urine pH 7.0 D Ur Specific [place] 1.025 Urine Protein Negative Urine Glucose (UA) Negative Urine Ketones Negative Urine Blood Negative Urine Nitrite Negative Urine Bilirubin Negative Urine Urobilinogen 0.2 Ur Leukocyte Esterase Negative Urine HCG, Qual Negative Opiates Screen Negative Methadone Screen Negative Barbiturate Screen Negative Phencyclidine Screen Negative Ur Amphetamines Screen Negative MDMA (Ecstasy) Screen Negative Benzodiazepines Screen Negative Cocaine Screen Positive A* U Marijuana (THC) Screen Positive A* 11/18/18 09:07 Sodium 138 Potassium 4.2 Chloride 104 Carbon Dioxide 27 Anion Gap 8 BUN 6.9 L Creatinine 0.8 Est GFR (CKD-EPI)AfAm 109.16 Est GFR (CKD-EPI)NonAf 94.18 Random Glucose 98 Calcium 9.5 Total Bilirubin 0.3 AST 22 ALT 25 Alkaline Phosphatase 76 Total Protein 7.2 Albumin 3.5 Serum , Qual Urine Color Urine Appearance Urine pH Ur Specific [place] Urine Protein Urine Glucose (UA) Urine Ketones Urine Blood Urine Nitrite Urine Bilirubin Urine Urobilinogen Ur Leukocyte Esterase Urine HCG, Qual Opiates Screen Methadone Screen Barbiturate Screen Phencyclidine Screen Ur Amphetamines Screen MDMA (Ecstasy) Screen Benzodiazepines Screen Cocaine Screen U Marijuana (THC) Screen 11/18/18 09:07 RBC 5.29 H MCV 73.4 L MCHC 32.3 RDW 16.6 H MPV 8.3 Neutrophils % 71.5 D Lymphocytes % 15.9 D Monocytes % 7.7 Eosinophils % 3.8 Basophils % 1.1 - Medications Given in the ED: ED Medications Discontinued Medications Generic Name Dose Route Start Last Admin Trade Name Jennifer PRN Reason Stop Dose Admin Vancomycin HCl 1,000 mg/ 250 mls @ 166.667 mls/hr 11/18/18 09:01 11/18/18 10: 39 Dextrose IVPB 11/18/18 10:30 166.667 mls/hr ONCE ONE Administration Piperacillin Sod/Tazobactam 50 mls @ 100 mls/hr 11/18/18 09:02 11/18/18 09:38 Sod 3.375 gm/ Dextrose IVPB 11/18/18 09:31 100 mls/hr ONCE ONE Administration Protocol Sodium Chloride 1,000 mls @ 1,000 mls/hr 11/18/18 10:31 11/18/18 10:39 Normal Saline - IV 11/18/18 11:30 1,000 mls/hr ASDIR STA Administration Ketorolac Tromethamine 30 mg 11/18/18 08:54 11/18/18 09:15 Toradol Injection - IVPUSH 11/18/18 08:55 30 mg ONCE ONE Administration Lidocaine HCl 20 ml 11/18/18 08:46 11/18/18 09:15 Xylocaine 2% Viscous Oral - MM 11/18/18 08:47 20 ml ONCE ONE Administration Methylprednisolone Sodium Succinate 125 mg 11/18/18 08:42 11/18/18 09:15 Solu-Medrol - IVPB 11/18/18 08:43 125 mg ONCE ONE Administration Morphine Sulfate 4 mg 11/18/18 13:37 11/18/18 13:51 Morphine Injection - IVPUSH 11/18/18 13:38 4 mg ONCE ONE Administration Medical Decision Making - Medical Decision Making Patient signed out to me by MATA Silverman Patient not accepted by medicine team as patient also needing derm/plastics involvement Patient accepted for transfer at [facility] ED, by Dr. Marcano 11/18/18 17:10 *DC/Admit/Observation/Transfer Diagnosis at time of Disposition: Pemphigus vulgaris - Discharge Dispostion Disposition: TRANSFER ACUTE CARE/OTHER HOSP Condition at time of disposition: Stable - Referrals - Patient Instructions - Post Discharge Activity - Transfer to Acute Care Facility Receiving Facility: [facility] Accepting Physician:: Dr. Marcano
[2018-11-18 17:14] VITALS: TEMP 97.6
[2018-11-18] MEDS ORDERED: MORPHINE SULFATE 2 MG/ML VIAL ONE (17:45)
[2018-11-18 18:07] VITALS: BP 121/77; PULSE 77
--- NOTE | 2018-11-18 19:46 | PDOC ---
*Physical Exam - Vital Signs Last Vital Signs Temp Pulse Resp BP Pulse Ox 97.6 F 77 18 121/77 98 11/18/18 18:03 11/18/18 18:03 11/18/18 18:03 11/18/18 18:03 11/18/18 17:13 ED Treatment Course - LABORATORY CBC & Chemistry Diagram: 11/18/18 09:07 11/18/18 09:07 - ADDITIONAL ORDERS Additional order review: Laboratory Results 11/18/18 11/18/18 11/18/18 14:00 14:00 09:37 Sodium Potassium Chloride Carbon Dioxide Anion Gap BUN Creatinine Est GFR (CKD-EPI)AfAm Est GFR (CKD-EPI)NonAf Random Glucose Calcium Total Bilirubin AST ALT Alkaline Phosphatase Total Protein Albumin Serum , Qual Negative Urine Color Yellow Urine Appearance Clear Urine pH 7.0 D Ur Specific [place] 1.025 Urine Protein Negative Urine Glucose (UA) Negative Urine Ketones Negative Urine Blood Negative Urine Nitrite Negative Urine Bilirubin Negative Urine Urobilinogen 0.2 Ur Leukocyte Esterase Negative Urine HCG, Qual Negative Opiates Screen Negative Methadone Screen Negative Barbiturate Screen Negative Phencyclidine Screen Negative Ur Amphetamines Screen Negative MDMA (Ecstasy) Screen Negative Benzodiazepines Screen Negative Cocaine Screen Positive A* U Marijuana (THC) Screen Positive A* 11/18/18 09:07 Sodium 138 Potassium 4.2 Chloride 104 Carbon Dioxide 27 Anion Gap 8 BUN 6.9 L Creatinine 0.8 Est GFR (CKD-EPI)AfAm 109.16 Est GFR (CKD-EPI)NonAf 94.18 Random Glucose 98 Calcium 9.5 Total Bilirubin 0.3 AST 22 ALT 25 Alkaline Phosphatase 76 Total Protein 7.2 Albumin 3.5 Serum , Qual Urine Color Urine Appearance Urine pH Ur Specific [place] Urine Protein Urine Glucose (UA) Urine Ketones Urine Blood Urine Nitrite Urine Bilirubin Urine Urobilinogen Ur Leukocyte Esterase Urine HCG, Qual Opiates Screen Methadone Screen Barbiturate Screen Phencyclidine Screen Ur Amphetamines Screen MDMA (Ecstasy) Screen Benzodiazepines Screen Cocaine Screen U Marijuana (THC) Screen 11/18/18 09:07 RBC 5.29 H MCV 73.4 L MCHC 32.3 RDW 16.6 H MPV 8.3 Neutrophils % 71.5 D Lymphocytes % 15.9 D Monocytes % 7.7 Eosinophils % 3.8 Basophils % 1.1 - Medications Given in the ED: ED Medications Discontinued Medications Generic Name Dose Route Start Last Admin Trade Name Jennifer PRN Reason Stop Dose Admin Vancomycin HCl 1,000 mg/ 250 mls @ 166.667 mls/hr 11/18/18 09:01 11/18/18 10: 39 Dextrose IVPB 11/18/18 10:30 166.667 mls/hr ONCE ONE Administration Piperacillin Sod/Tazobactam 50 mls @ 100 mls/hr 11/18/18 09:02 11/18/18 09:38 Sod 3.375 gm/ Dextrose IVPB 11/18/18 09:31 100 mls/hr ONCE ONE Administration Protocol Sodium Chloride 1,000 mls @ 1,000 mls/hr 11/18/18 10:31 11/18/18 10:39 Normal Saline - IV 11/18/18 11:30 1,000 mls/hr ASDIR STA Administration Ketorolac Tromethamine 30 mg 11/18/18 08:54 11/18/18 09:15 Toradol Injection - IVPUSH 11/18/18 08:55 30 mg ONCE ONE Administration Lidocaine HCl 20 ml 11/18/18 08:46 11/18/18 09:15 Xylocaine 2% Viscous Oral - MM 11/18/18 08:47 20 ml ONCE ONE Administration Methylprednisolone Sodium Succinate 125 mg 11/18/18 08:42 11/18/18 09:15 Solu-Medrol - IVPB 11/18/18 08:43 125 mg ONCE ONE Administration Morphine Sulfate 4 mg 11/18/18 13:37 11/18/18 13:51 Morphine Injection - IVPUSH 11/18/18 13:38 4 mg ONCE ONE Administration Morphine Sulfate 2 mg 11/18/18 17:37 11/18/18 17:53 Morphine Injection - IVPUSH 11/18/18 17:38 2 mg ONCE ONE Administration Medical Decision Making - Medical Decision Making 11/18/18 17:04 Pt seen by MATA Noriega under my direct supervision Pt presents to ED for evaluation of scalp infection, found to have purulent scalp cellulitis likely related to pemphigus vulgaris Pt covered with abx Upon discussed with Dr. 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 Marcano by me, pt accepted for transfer *DC/Admit/Observation/Transfer Diagnosis at time of Disposition: Pemphigus vulgaris - Discharge Dispostion Disposition: TRANSFER ACUTE CARE/OTHER HOSP Condition at time of disposition: Stable - Referrals - Patient Instructions - Post Discharge Activity
--- NOTE | 2018-11-19 17:04 | EKG ---
Test Reason : Blood Pressure : / mmHG Vent. Rate : 071 BPM Atrial Rate : 071 BPM P-R Int : 154 ms QRS Dur : 080 ms QT Int : 448 ms P-R-T Axes : -10 006 -01 degrees QTc Int : 486 ms NORMAL SINUS RHYTHM MODERATE VOLTAGE CRITERIA FOR LVH, MAY BE NORMAL VARIANT PROLONGED QT ABNORMAL ECG WHEN COMPARED WITH ECG OF 10-SEP-2018 08:05, NO SIGNIFICANT CHANGE WAS FOUND Confirmed by MD ASHLEY, SHILO ([id number]) on 11/19/2018 5:04:01 PM Referred By: Confirmed By:SHILO RAMIREZ MD
== END 2018-11-18 18:23 | disposition short-term general hospital (02) ==
LOC: JERFT 08:08 → JER 08:08
PROC: 3E0337Z Introduction of Electrolytic and Water Balance Substance into Peripheral Vein, Percutaneous Approach (ICD-10-PCS; principal; 2018-11-18)
PROC: 3E03329 Introduction of Other Anti-infective into Peripheral Vein, Percutaneous Approach (ICD-10-PCS; 2018-11-18)
PROC: 3E033NZ Introduction of Analgesics, Hypnotics, Sedatives into Peripheral Vein, Percutaneous Approach (ICD-10-PCS; 2018-11-18)
PROC: 3E0333Z Introduction of Anti-inflammatory into Peripheral Vein, Percutaneous Approach (ICD-10-PCS; 2018-11-18)
PROC: 3E0333Z Introduction of Anti-inflammatory into Peripheral Vein, Percutaneous Approach (ICD-10-PCS; 2018-11-18)
PROC: 3E03329 Introduction of Other Anti-infective into Peripheral Vein, Percutaneous Approach (ICD-10-PCS; 2018-11-18)
DX: L10.0 Pemphigus vulgaris (principal); L03.811 Cellulitis of head [any part, except face]; F14.10 Cocaine abuse, uncomplicated
CPT/HCPCS: 36415; 70450-TC; 70460-TC; 80053; 80307; 81003; 84703; 85025; 87040; 87070; 87086; 87205; 87529; 93005; 93010; 96361; 96365; 96367; 96375; 96376; 99285-25; J7030